=== PATIENT | male | born 1960 | race African-American/Black ===

== ENCOUNTER → 2016-09-03 | Outpatient (REF) | payer BC | LOC: M LABDRAW1 10:50 | PROVIDERS: ATTEND Urology | DX: R97.20 Elevated prostate specific antigen [PSA] (principal) ==

== ENCOUNTER → 2016-09-03 | Outpatient (REF) | payer BC ==
[2016-09-03 11:24] LABS: ALBUMIN 3.6 GM/DL (3.2-5.2); ALBUMIN/GLOBULIN RATIO 1.29 (1.00-1.93); ALKALINE PHOSPHATASE 36 U/L (45-117); ALT/SGPT 25 U/L (12-78); ANION GAP 5 MEQ/L (8-16); AST/SGOT 17 U/L (15-37); BILIRUBIN,TOTAL 0.7 MG/DL (0.2-1.0); BLOOD UREA NITROGEN 11 MG/DL (7-18); CALCIUM LEVEL 8.8 MG/DL (8.5-10.1); CARBON DIOXIDE LEVEL 27 MEQ/L (21-32); CHLORIDE LEVEL 108 MEQ/L (98-107); CHOLESTEROL LEVEL 209 MG/DL (<200); GLOMERULAR FILTRATION RATE > 60.0 (>56); GLUCOSE, FASTING 100 MG/DL (70-105); POTASSIUM SERUM 4.2 MEQ/L (3.5-5.1); SODIUM LEVEL 140 MEQ/L (136-145); TOTAL PROTEIN 6.4 GM/DL (6.4-8.2); TRIGLYCERIDES LEVEL 72 MG/DL (<150)
== END ==
LOC: M LABDRAW1 10:48
PROVIDERS: ATTEND Physician Assistant
DX: E78.5 Hyperlipidemia, unspecified (principal)

== ENCOUNTER → 2016-09-25 | Outpatient (CLI) | payer BC ==
[~2016-09-25] VITALS: Ht 170.2 cm; Wt 65.8 kg
[~2016-09-25] MED LIST: ALBU17IN INH; BREO1INH3 INH; NS 1,000 ML IV SCH; PROPOFOL 200 MG/20 ML VIAL As Ordered ONE; TIOT18INH INH
--- NOTE | 2016-09-25 09:35 | ROOR ---
Patient Name: Louis Ralph Procedure Date: 09/25/2016 7:30 AM Date of : 1960 Age: 56 Room: [facility] Gender: Male Note Status: Finalized Procedure: Colonoscopy to Cecum + Cold Snare Polypectomy Indications: Screening for colorectal malignant neoplasm Providers: Baljeet Padilla MD Referring MD: DK Agarwal Requesting Provider: Medicines: Monitored Anesthesia Care Complications: No immediate complications. Procedure: Pre-Anesthesia Assessment: - The heart rate, respiratory rate, oxygen saturations, blood pressure, adequacy of pulmonary ventilation, and response to care were monitored throughout the procedure. The Colonoscope was introduced through the anus and advanced to the cecum, identified by appendiceal orifice and ileocecal valve. The colonoscopy was performed without difficulty. The patient tolerated the procedure well. The quality of the bowel preparation was excellent. Findings: The perianal and digital rectal examinations were normal. Non-bleeding internal hemorrhoids were found during retroflexion. The hemorrhoids were small and Grade I (internal hemorrhoids that do not prolapse). A small polyp was found in the mid ascending colon. The polyp was sessile. The polyp was removed with a cold snare. Resection and retrieval were complete. A small polyp was found in the proximal transverse colon. The polyp was sessile. The exam was otherwise without abnormality on direct and retroflexion views. Impression: - Non-bleeding internal hemorrhoids. - One small polyp in the mid ascending colon, removed with a cold snare. Resected and retrieved. - One small polyp in the proximal transverse colon. - The examination was otherwise normal on direct and retroflexion views. - The exam was otherwise normal to the cecum. Recommendation: - Patient has a contact number available for emergencies. The signs and symptoms of potential delayed complications were discussed with the patient. Return to normal activities tomorrow. Written discharge instructions were provided to the patient. - High fiber diet. - Discharge patient to home. - Continue present medications. - Await pathology results. - Telephone GI clinic for pathology results in 1 week. - Repeat colonoscopy in 5 years for surveillance based on pathology results. - Return to referring physician. - The findings and recommendations were discussed with the patient's family. Baljeet Padilla MD Baljeet Padilla MD 09/25/2016 9:34:49 AM This report has been signed electronically. Number of Addenda: 0 Note Initiated On: 09/25/2016 7:30 AM Estimated Blood Loss: Estimated blood loss: none.
[2016-09-25 10:05] VITALS: BP 107/75
== END | disposition home or self-care (01) ==
LOC: M OPP 07:58
PROVIDERS: ATTEND Internal Medicine Gastroenterology
DX: Z12.11 Encounter for screening for malignant neoplasm of colon (principal); D12.2 Benign neoplasm of ascending colon; D12.3 Benign neoplasm of transverse colon; K64.0 First degree hemorrhoids; J44.9 Chronic obstructive pulmonary disease, unspecified; Z95.0 Presence of cardiac pacemaker; Z79.899 Other long term (current) drug therapy; F17.210 Nicotine dependence, cigarettes, uncomplicated

== ENCOUNTER → 2016-11-13 | Outpatient (CLI) | payer BC ==
[~2016-11-13] MED LIST changes: -NS 1,000 ML IV SCH; -PROPOFOL 200 MG/20 ML VIAL As Ordered ONE
--- NOTE | 2016-11-13 23:33 | REP ---
Clinical: Follow up consolidation. Comparison: 11/02 12/[address], 05/15/2015. Findings: Advanced COPD and emphysematous changes are again appreciated with large bulla noted in the right lower lobe measuring roughly 10 cm maximal diameter. Area of consolidation along the posteromedial right lower lobe is again identified and remains relatively similar to prior examinations suggesting a focus of chronic rounded atelectasis. No new acute consolidation, obvious nodule or mass lesion is appreciated. Few calcified and noncalcified lymph nodes in the mediastinum and right hilum appears stable measuring up to approximately 8 mm short axis diameter. No effusion. No pneumothorax. Thoracic aorta and heart/pericardium are normal. Impression: 1. Advanced COPD and emphysematous changes with scattered scarring, bronchiectasis, and bullae similar to prior examinations. 2. Small to moderate area of consolidation along the posteromedial right lower lobe similar to prior examinations and likely representing area of chronic rounded atelectasis. Few mediastinal and right hilar lymph nodes including partially calcified lymph nodes remain stable. Signed by Jamarcus Salas MD 11/13/2016 11:24 P
== END ==
LOC: M RAD 17:25
PROVIDERS: ATTEND Internal Medicine Pulmonary Disease
DX: R91.8 Other nonspecific abnormal finding of lung field (principal)

== ENCOUNTER → 2017-03-03 | Outpatient (REF) | payer BC ==
[2017-03-03 10:11] LABS: BASO # 0.1 K/mm3 (0.0-0.2); BASO % 0.8 % (0.0-1.0); EOS # 0.2 K/mm3 (0.0-0.50); EOS % 1.8 % (0.0-3.0); LARGE UNSTAINED CELL # 0.2 K/mm3 (0.0-0.4); LARGE UNSTAINED CELL % 1.7 % (0.0-4.0); LYMPH # 1.7 K/mm3 (1.5-4.5); LYMPH % 16.8 % (24.0-44.0); MEAN CORPUSCULAR HEMOGLOBIN 30.2 pg (27.0-33.0); MEAN CORPUSCULAR HGB CONC 31.9 g/dl (32.0-36.5); MEAN CORPUSCULAR VOLUME 94.5 fl (80.0-96.0); MONO # 0.6 K/mm3 (0.0-0.8); MONO % 6.3 % (0.0-5.0); NEUTROPHILS # 6.6 K/mm3 (1.8-7.7); NEUTROPHILS % 72.6 % (36.0-66.0); PLATELET COUNT, AUTOMATED 335 k/mm3 (150-450); RED CELL DISTRIBUTION WIDTH 13.1 % (11.5-14.5); WHITE BLOOD COUNT 9.1 K/mm3 (4.0-10.0)
[2017-03-03 10:17] LABS: ALBUMIN 3.7 GM/DL (3.2-5.2); ALBUMIN/GLOBULIN RATIO 1.09 (1.00-1.93); ALKALINE PHOSPHATASE 47 U/L (45-117); ALT/SGPT 29 U/L (12-78); ANION GAP 7 MEQ/L (8-16); AST/SGOT 20 U/L (15-37); BLOOD UREA NITROGEN 9 MG/DL (7-18); CALCIUM LEVEL 9.8 MG/DL (8.5-10.1); CARBON DIOXIDE LEVEL 29 MEQ/L (21-32); CHLORIDE LEVEL 107 MEQ/L (98-107); CHOLESTEROL LEVEL 205 MG/DL (<200); CREATININE FOR GFR 0.77 MG/DL (0.70-1.30); GLOMERULAR FILTRATION RATE > 60.0 (>56); GLUCOSE, FASTING 94 MG/DL (70-105); SODIUM LEVEL 143 MEQ/L (136-145); TOTAL PROTEIN 7.1 GM/DL (6.4-8.2); TRIGLYCERIDES LEVEL 52 MG/DL (<150)
[2017-03-03 10:24] LABS: POTASSIUM SERUM 5.8 MEQ/L (3.5-5.1)
[2017-03-03 10:45] LABS: ERYTHROCYTE SEDIMENTATION RATE 3 mm/hr (0-20)
== END ==
LOC: M LABDRAW1 08:04
PROVIDERS: ATTEND Physician Assistant
DX: R63.4 Abnormal weight loss (principal); E78.5 Hyperlipidemia, unspecified; R97.20 Elevated prostate specific antigen [PSA]

== ENCOUNTER → 2017-03-24 | Outpatient (CLI) | payer BC ==
[~2017-03-24] MED LIST changes: +E-Z-GAS II EFFERVESCENT PACKET (SODIUM BICARB./CITRIC ACID/SIMETHICONE) As Ordered ONE; +E-Z-HD 98% w/w 340GM SUSP BTL As Ordered ONE; +E-Z-PAQUE 96% w/w SUSP 176GM BTL As Ordered ONE
--- NOTE | 2017-03-24 15:45 | REP ---
UPPER GI WITH SMALL BOWEL FOLLOW THROUGH: The procedure was performed by RAYMUNDO Parks under the direct supervision of Dr. Abebe. All imaging was reviewed with Dr. Abebe prior to dictation. The patient was able to ingest liquid barium and air in a quantity sufficient to produce a double contrast examination. The oral and pharyngeal stages of deglutition appeared unremarkable. Esophageal transport was prompt and efficient. There was no evidence of esophagitis, stricture, mucosal ring, or hiatal hernia. Gastroesophageal reflux was observed to the level of the xavier. The stomach can were normally outlined. There was no evidence of duodenitis, peptic ulcer disease, or neoplasm. Posterior to the gastric cardia there is a gastric diverticula noted on this exam. The visualized portion of the proximal small bowel was normal in course and caliber. Additional liquid barium was given at the end of the examination in order to perform a small bowel follow through. During fluoroscopy gentle palpation of the small bowel loops showed them to be freely movable and pliable without evidence of a fixed or angulated loop. The small bowel mucosal pattern was normal in course and caliber. There was no evidence to suggest a partial small bowel obstruction. Spot filming of the terminal ileum was not able to be obtained due to overlapping folds of small bowel being superimposed over the field where the terminal ileum was located. IMPRESSION: Reflux to the level of the xavier was noted. Not able to visualize the terminal ileum due to small bowel loops being superimposed over terminal ileum. Incidental finding of a small gastric diverticula posterior to the gastric cardia. Fluoroscopy time of 3 minutes and 9 seconds were utilized for this procedure. Reviewed by RAYMUNDO Bueno 03/24/2017 03:52 PEdited and Signed by Vitor Abebe MD 03/24/2017 04:42 P
== END ==
LOC: M RAD 09:38
PROVIDERS: ATTEND Physician Assistant
DX: R63.4 Abnormal weight loss (principal)

== ENCOUNTER → 2017-07-08 | Outpatient (REF) | payer BC ==
[2017-07-10 10:37] LABS: ALBUMIN 4.19 GM/DL (3.29-5.55); ALBUMIN % 59.8 % (55.8-66.1); ALPHA-1-GLOBULIN % 3.6 % (2.9-4.9); ALPHA-1-GLOBULINS 0.25 GM/DL (0.17-0.41); ALPHA-2-GLOBULINS 0.73 GM/DL (0.42-0.99); ALPHA-2-GLOBULINS % 10.4 % (7.1-11.8); BETA-1-GLOBULINS 0.46 GM/DL (0.28-0.60); BETA-1-GLOBULINS % 6.6 % (4.7-7.2); BETA-2-GLOBULINS 0.39 GM/DL (0.19-0.55); BETA-2-GLOBULINS % 5.5 % (3.2-6.5); GAMMA GLOBULIN % 14.1 % (11.1-18.8); GAMMA GLOBULINS 0.99 GM/DL (0.65-1.58)
== END ==
LOC: M LABDRAW1 11:42
DX: D72.821 Monocytosis (symptomatic) (principal)
CPT/HCPCS: 84165

== ENCOUNTER → 2018-04-28 | Outpatient (REF) | payer BC ==
[2018-04-28 12:43] LABS: LACTIC ACID SEPSIS PROTOCOL 1.5 MMOL/L (0.4-2.0)
[2018-04-28 13:05] LABS: INR 0.96; PROTHROMBIN TIME 12.8 SECONDS (12.1-14.4)
[2018-04-28 13:25] LABS: ALBUMIN 3.5 GM/DL (3.2-5.2); ALBUMIN/GLOBULIN RATIO 1.09 (1.00-1.93); ALKALINE PHOSPHATASE 43 U/L (45-117); ALT/SGPT 44 U/L (12-78); AMYLASE 63 U/L (25-115); ANION GAP 9 MEQ/L (8-16); AST/SGOT 33 U/L (7-37); BLOOD UREA NITROGEN 7 MG/DL (7-18); CALCIUM LEVEL 9.3 MG/DL (8.5-10.1); CARBON DIOXIDE LEVEL 26 MEQ/L (21-32); CHLORIDE LEVEL 102 MEQ/L (98-107); CREATININE FOR GFR 0.61 MG/DL (0.70-1.30); GLOMERULAR FILTRATION RATE > 60.0 (>56); GLUCOSE, FASTING 78 MG/DL (70-100); LIPASE 55 U/L (73-393); POTASSIUM SERUM 4.5 MEQ/L (3.5-5.1); PREALBUMIN 22.5 MG/DL (20.0-40.0); PSA SCREENING 0.9 NG/ML (< 4.0); SODIUM LEVEL 137 MEQ/L (136-145); TOTAL PROTEIN 6.7 GM/DL (6.4-8.2)
[2018-04-29 11:02] LABS: HIV 1&2 SCREEN CENTAUR NEGATIVE (NEGATIVE)
== END ==
LOC: M SFHCPLAZ 11:05
DX: R63.4 Abnormal weight loss (principal); Z12.5 Encounter for screening for malignant neoplasm of prostate

== ENCOUNTER → 2018-05-01 | Outpatient (CLI) | payer BC | LOC: M RAD 06:43 | DX: K76.89 Other specified diseases of liver (principal); R63.4 Abnormal weight loss | CPT/HCPCS: 76700 ==

== ENCOUNTER → 2018-07-02 | Outpatient (CLI) | payer BC ==
[~2018-07-02] MED LIST changes: -E-Z-GAS II EFFERVESCENT PACKET (SODIUM BICARB./CITRIC ACID/SIMETHICONE) As Ordered ONE; -E-Z-HD 98% w/w 340GM SUSP BTL As Ordered ONE; -E-Z-PAQUE 96% w/w SUSP 176GM BTL As Ordered ONE
--- NOTE | 2018-07-03 06:14 | REP ---
Clinical: Follow up abnormal pulmonary findings. Comparison: 11/13/2016. Technique: Axial noncontrast images from the thoracic inlet to the upper abdomen with coronal and sagittal re-formations. Findings: Advanced COPD and emphysematous changes including scattered fibrosis/scarring, moderate to large bullae primarily involving the apices (right greater than left) and right lower lobe, as well as suspected chronic rounded atelectasis along the medial right lower lobe. Current examination demonstrates a new focal area of nodularity with spiculated margins measuring approximately 10 mm within the posterior right upper lobe (image 34). No effusion. No pneumothorax. Mediastinum including thoracic aorta, pulmonary vasculature and heart/pericardium are within normal limits / stable. Surrounding musculoskeletal structures demonstrate age-related degenerative changes. Impression: 1. New 10 mm opacity with spiculated margins in the posterior right upper lobe. Pulmonology consultation is recommended. Further imaging evaluation including PET-CT as well as short-term follow-up contrast-enhanced examination may be warranted. 2. Chronic advanced COPD and emphysematous changes along with focus of chronic atelectasis along the medial right lower lobe. Electronically Signed by Jamarcus Salas MD 07/03/2018 06:06 A
== END ==
LOC: M RAD 17:07
PROVIDERS: ATTEND Internal Medicine Pulmonary Disease
DX: R91.8 Other nonspecific abnormal finding of lung field (principal); J43.9 Emphysema, unspecified; J84.10 Pulmonary fibrosis, unspecified; J98.11 Atelectasis

== ENCOUNTER → 2018-07-21 | Outpatient (CLI) | payer BC ==
--- NOTE | 2018-07-22 15:12 | REP ---
PET/CT: History: Solitary pulmonary nodule. Comparisons: Comparison CT chest July 02, 2018 showed a new 10 mm spiculated nodule in the right upper lobe posteriorly. TECHNIQUE: 76 minutes following the intravenous injection of a 9.9 mCi dose of F-18 FDG, three-dimensional PET scintigraphy is acquired from the skull base to the proximal thighs. Triplanar noncontrast CT scanning is acquired through the same anatomic range for attenuation correction, and image registration with scan parameters optimized to minimize radiation exposure to the patient. PET scintigraphy and CT datasets were fused and displayed on a workstation with multiplanar and projection display capability. PET/CT Findings: The new 10 mm spiculated nodule in the right upper lobe shows borderline hypermetabolic uptake, maximum standard uptake value 2.0. There is discernible although not quite hypermetabolic uptake in an even smaller nodule higher in the right upper lobe. Maximum standard uptake value here is 1.5. This nodule measures 5 mm in diameter and is also spiculated. It must be considered potentially suspicious as well. Lastly, there is a third right upper lobe hypermetabolic nodule anteriorly. This displays maximum standard uptake value of 2.82. It measures 8 mm in diameter. There is a mildly hypermetabolic precarinal lymph node with maximum standard uptake value 2.9. This lymph node measures 10 mm in short axis dimension. No other abnormal hypermetabolic uptake is seen in the chest. The chronic atelectasis in the right lower lobe posteromedially does not show hypermetabolic uptake. Head and neck soft tissues are unremarkable. In the abdomen and pelvis there is no abnormal hypermetabolic uptake. Impression: There are three small subcentimeter separate spiculated right upper lobe nodules. The all show borderline or mild hypermetabolic uptake. They each must be considered potentially suspicious. There is a suspicious small lymph node in the precarinal region of the mediastinum as well. Electronically Signed by Vitor Abebe MD 07/22/2018 07:14 P
== END ==
LOC: M PLARAD 14:41
PROVIDERS: ATTEND Internal Medicine Pulmonary Disease
DX: R91.1 Solitary pulmonary nodule (principal)
CPT/HCPCS: 78815; A9552

== ENCOUNTER → 2018-09-09 | Outpatient (CLI) | payer BC ==
[2018-09-09 13:38] LABS: HEMATOCRIT 41.4 % (42.0-52.0); HEMOGLOBIN 14.3 g/dl (13.5-17.5); MEAN CORPUSCULAR HEMOGLOBIN 29.7 pg (27.0-33.0); MEAN CORPUSCULAR HGB CONC 34.5 g/dl (32.0-36.5); MEAN CORPUSCULAR VOLUME 86.1 fl (80.0-96.0); PLATELET COUNT, AUTOMATED 260 10^3/uL (150-450); RED BLOOD COUNT 4.81 10^6/uL (4.30-6.10); WHITE BLOOD COUNT 6.9 10^3/uL (4.0-10.0)
[2018-09-09 13:50] LABS: INR 1.01; PROTHROMBIN TIME 13.4 SECONDS (12.1-14.4)
[2018-09-09 13:52] LABS: ABG BASE EXCESS 2.9 (-2.0-2.0); ABG HCO3 27.2 MEQ/L (22.0-26.0); ABG PARTIAL PRESSURE CO2 40.5 mmHg (35.0-45.0); ABG PARTIAL PRESSURE O2 54.7 mmHg (75.0-100.0); ABG STANDARD HCO3 26.9 MEQ/L (22.0-26.0); ABG TOTAL CO2 28.4 MEQ/L (22.0-29.0); ABG pH (ARTERIAL) 7.445 UNITS (7.350-7.450)
[2018-09-09 14:03] LABS: BLOOD UREA NITROGEN 11 MG/DL (7-18); CALCIUM LEVEL 8.9 MG/DL (8.5-10.1); CARBON DIOXIDE LEVEL 27 MEQ/L (21-32); CHLORIDE LEVEL 105 MEQ/L (98-107); CREATININE FOR GFR 0.68 MG/DL (0.70-1.30); GLOMERULAR FILTRATION RATE > 60.0 (>56); GLUCOSE, FASTING 84 MG/DL (70-100); POTASSIUM SERUM 4.1 MEQ/L (3.5-5.1); SODIUM LEVEL 139 MEQ/L (136-145)
--- NOTE | 2018-09-09 14:27 | REP ---
Clinical: Lung mass. Technique: PA and lateral. Comparison: 06/20/2018. Findings: Advanced COPD and emphysematous changes are again noted with the large bullae involving the right lower lung zone. No obvious focal mass lesion is identified by radiographic evaluation. The mediastinum and cardiac silhouette are within normal limits. No effusion. No pneumothorax. Skeletal structures are intact. Impression: Advanced COPD and emphysematous changes similar to prior examination. Electronically Signed by Jamarcus Salas MD 09/09/2018 02:18 P
== END ==
LOC: M ADMPAT 12:38
PROVIDERS: ATTEND Thoracic Surgery (Cardiothoracic Vascular Surgery)
DX: J44.9 Chronic obstructive pulmonary disease, unspecified (principal); R91.1 Solitary pulmonary nodule

== ENCOUNTER 2018-09-16 05:52 | Day surgery (SDC) | payer BC ==
[2018-09-09 13:09] VITALS: BP 119/68
--- NOTE | 2018-09-09 21:33 | ECGEPIP ---
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
[~2018-09-16] VITALS: Ht 165.1 cm; Wt 57.8 kg
[~2018-09-16 05:52] MED LIST changes: +MUPIROCIN 2% OINT 22 GM TUBE TOP ONE
[2018-09-16 06:34] LABS: INR 0.92; PROTHROMBIN TIME 12.5 SECONDS (12.1-14.4)
[2018-09-16 06:35] LABS: PARTIAL THROMBOPLASTIN TIME 26.8 SECONDS (25.4-37.6)
[2018-09-16] MEDS ORDERED: MUPIROCIN 2% OINT 22 GM TUBE TOP ONE (06:45)
[2018-09-16] MEDS ORDERED: LR 1,000 ML IV ONE (07:00)
[2018-09-16] MEDS ORDERED: LIDOCAINE 1% SDV INJ 30 ML VIAL As Ordered ONE (07:13)
[2018-09-16] MEDS ORDERED: EPINEPHrine 1MG/10ML SYRINGE 1.5IN As Ordered ONE (07:13)
[2018-09-16] MEDS ORDERED: THROMBIN SOLN 20,000 UNITS KIT As Ordered ONE (07:13)
[2018-09-16] MEDS ORDERED: CETACAINE SPRAY 5GM As Ordered ONE (07:13)
[2018-09-16] MEDS ORDERED: LIDOCAINE VISCOUS 2% SOLN 15ML UDC As Ordered ONE (07:14)
[2018-09-16] MEDS ORDERED: LIDOCAINE 4% TOPICAL SOLN 50 ML BTL As Ordered ONE (07:15)
[2018-09-16] MEDS ORDERED: fentaNYL 250 MCG/5 ML INJECTION (J3010) As Ordered ONE (07:47)
[2018-09-16] MEDS ORDERED: LIDOCAINE 2% INJ 100 MG/5 ML SDV (FOR ANES.) As Ordered ONE (07:47)
[2018-09-16] MEDS ORDERED: MIDAZOLAM INJ 2 MG/2 ML VIAL (J2250) As Ordered ONE (07:47)
[2018-09-16] MEDS ORDERED: ROCURONIUM BROMIDE 50 MG/5 ML VIAL As Ordered ONE (07:47)
[2018-09-16] MEDS ORDERED: PROPOFOL 200 MG/20 ML VIAL As Ordered ONE (07:47)
[2018-09-16] MEDS ORDERED: dexameTHASONE 4 MG/ML 1ML VIAL (J1100) As Ordered ONE (07:47)
[2018-09-16] MEDS ORDERED: PHENYLephrine HCL 500 MCG/5 ML (100MCG/ML) SYRINGE (J2370) As Ordered ONE ×2 (07:55→08:28)
[2018-09-16] MEDS ORDERED: ONDANSETRON 4MG/2ML VIAL (J2405) As Ordered ONE (08:08)
[2018-09-16] MEDS ORDERED: SUGAMMADEX SODIUM 500 MG/5 ML VIAL (BRIDION) As Ordered ONE (08:39)
--- NOTE | 2018-09-16 09:31 | RO ---
DATE OF PROCEDURE: 09/16/2018 PREOPERATIVE DIAGNOSIS: Abnormal chest CT, adenopathy with pulmonary nodules. POSTOPERATIVE DIAGNOSIS: Abnormal chest CT, adenopathy with pulmonary nodules. FINDINGS: Pitted smokers airway. PROCEDURE: Bronchoscopy with endobronchial ultrasound and electromagnetic navigation. PROCEDURALIST: Dr. Saran Jane. CONTAINER MAKER: None. ANESTHESIA: General. ESTIMATED BLOOD LOSS: 2 to 5 mL. OBSERVED COMPLICATIONS: None. DESCRIPTION OF PROCEDURE: After informed consent was reviewed with the patient in the preoperative area, the patient was brought back to a pre mapped room in OR #6. General anesthesia was administered and intubated with an 8.5 endotracheal tube and the case was handed over to me. Time-out was performed with two patient identifiers identifying correct site, correct procedure. The 1T190 bronchoscope was then inserted into the airway. Cetacaine spray was used for lubrication and anesthetization of the airway. The trachea was midline. There was some pitting of the trachea and main airways. Shabana was fairly sharp. Right and left mainstem bronchus was normal without significant abnormalities. RB 1 through 10 was inspected with some banding and pitting but no endobronchial lesions. There is minimal amounts of mucus in the right lower lobe. On the left side, LB 1 through 10 was also examined with no endobronchial lesions, again banding and pitting. After this was performed, the 1T190 bronchoscope was removed. Endobronchial ultrasound was inserted. I then performed fine-needle aspiration of the precarinal node that is in the 4R position. The node was very flat. Pictures were taken. On-site cytology suggested only inflammation. A sample was obtained for cell block. After adequate sampling of the lymph node, the endobronchial ultrasound was removed. I then reinserted the 1T190 bronchoscope and performed automatic registration with electromagnetic navigation bronchoscopy. Automatic registration was performed and confirmed. I had mapped a total of three lesions. Target one was the most anterior nodule, the largest nodule, the one that had been initially of most concern. This was labeled as target #1. This was easily obtained. With transbronchial forceps, biopsies were obtained, along with fine-needle aspiration through a GenCut. The right upper lobe transbronchial brushes were performed. I used radial ultrasound through the navigational sheath to ensure surrounding tissue. I then navigated to target #2, which is the most apical lesion on image [address] scan, measuring approximately 6 mm again in the right upper lobe. I used separate forceps, biopsies, separate bronchial brushing, these were both obtained. I then performed a BAL leaving the area. After all samples were obtained, hemostasis was assured and bronchoscope was removed. There were no observed complications of the patient postprocedure.
[2018-09-16] MEDS ORDERED: fentaNYL 100 MCG/2 ML INJECTION (J3010) IV PRN (09:45)
[2018-09-16] MEDS ORDERED: ONDANSETRON 4MG/2ML VIAL (J2405) IV PRN (09:45)
[2018-09-16] MEDS ORDERED: LR 1,000 ML IV SCH (09:45)
--- NOTE | 2018-09-16 09:46 | REP ---
Chest one-view HISTORY: Postop Comparison: 09/09/2018 An increase in interstitial markings is present in the lungs consistent with chronic interstitial fibrosis. Bullae are present in the right lower lobe. The heart is normal in size. The pulmonary vasculature is normal in appearance. Impression: Chronic interstitial fibrosis. Electronically Signed by Afshin Chu MD 09/16/2018 09:38 A
--- NOTE | 2018-09-16 10:03 | REP ---
Chest x-ray: Two views. History: Lung mass. Mediastinal lymphadenopathy. Findings: A sequence of two last image hold fluoroscopically obtained spot radiographs document bronchoscopic catheter positions. 3 minutes and 5 seconds of fluoroscopy time is reported. Electronically Signed by Vitor Abebe MD 09/16/2018 11:09 A
[2018-09-16 10:15] VITALS: BP 108/61
== END 2018-09-16 10:32 | disposition home or self-care (01) ==
LOC: M SDC 05:52
PROVIDERS: ATTEND Thoracic Surgery (Cardiothoracic Vascular Surgery)
DX: R91.8 Other nonspecific abnormal finding of lung field (principal); R91.1 Solitary pulmonary nodule; R59.0 Localized enlarged lymph nodes; J43.9 Emphysema, unspecified; J44.9 Chronic obstructive pulmonary disease, unspecified; R09.02 Hypoxemia; R06.83 Snoring
CPT/HCPCS: 31623; 31624; 31627; 31628; 31652; 36415; 71045; 76000; 85610; 85730; 86850; 86900; 86901; 87070; 87102; 87116; 87205; 87206; 88104; 88173; 88305; 88313; 93005; J1100; J2250; J2370; J2405; J3010

== ENCOUNTER → 2018-10-27 | Outpatient (CLI) | payer BC ==
[~2018-10-27] MED LIST changes: -MUPIROCIN 2% OINT 22 GM TUBE TOP ONE
--- NOTE | 2018-11-06 16:38 | REP ---
CT CHEST WITHOUT IV CONTRAST: CT chest performed without IV contrast. Sagittal and coronal reconstruction images are performed. COMPARISON: Comparison made with prior studies 09/04/2018, 07/02/2018 and 11/13/2016. In the right upper lobe on image #27 there is a new 6 mm irregular nodular opacity. More inferiorly, a previously noted spiculated nodular opacity has decreased in size as seen on image #34, now measuring about 6 mm, previously about 1 cm. Another nodular opacity in the right upper lobe posterolaterally has decreased in size now measuring 7 x 8 mm, previously 9 mm in diameter. A nodular opacity in the right upper lobe anteriorly has changed appearance becoming more dense anteriorly and less dense posteriorly, although there is increased ill-defined opacity posteriorly with an area of ill-defined consolidation and air bronchograms in that region encompassing an area of approximately 3 cm in diameter. There is an area of consolidation in the right lower lobe inferomedially which has mildly increased which may represent an increased area of fibroatelectasis. New peripheral consolidative opacity is seen in the anterior left upper lobe with irregular margins measuring approximately 2.9 x 1.4 cm. There is mild adjacent pleural thickening at this location. No other new findings are seen on the left. Scattered fibrotic changes are seen particularly on the right with emphysematous and bullous changes seen throughout the right lung. A large right lower lobe bulla is stable. Heart is normal in size. There is no pleural or pericardial effusion. Mildly enlarged mediastinal lymph nodes are stable. Calcified lymph nodes are seen in the subcarinal region. A few small calcified right hilar lymph nodes are seen. IMPRESSION: There is decrease in size of previously noted spiculated nodules in the right upper lobe with new consolidative parenchymal opacities seen more inferiorly in the anterior aspect of the right upper lobe, with another new consolidative opacity peripherally in the anterior left upper lobe. The findings are suggestive of inflammation/infection. Mild stable mediastinal adenopathy. Please note that this examination was submitted to me for interpretation 11/06/2018 for reasons unknown to me. Electronically Signed by Mac Al MD 11/10/2018 10:06 A
== END ==
LOC: M RAD 17:28
PROVIDERS: ATTEND Internal Medicine Pulmonary Disease
DX: R91.8 Other nonspecific abnormal finding of lung field (principal)

== ENCOUNTER → 2018-11-11 | Outpatient (REF) | payer BC | LOC: M LAB REF 09:58 | PROVIDERS: ATTEND Internal Medicine Pulmonary Disease | DX: R91.8 Other nonspecific abnormal finding of lung field (principal) ==

== ENCOUNTER → 2018-11-18 | Outpatient (CLI) | payer BC ==
--- NOTE | 2018-11-19 00:52 | REP ---
Clinical: Abnormal lung findings. Comparison: 09/16/2018. Technique: PA and lateral. Findings: Advanced COPD and emphysematous changes are appreciated with large bulla involving the right mid to lower lung zone. A new area of ill-defined opacity with spiculated margins is appreciated in the right mid lung zone midclavicular line measuring greater than 4 cm maximal diameter. No further opacity. No definite effusion. No pneumothorax. Cardiac silhouette is normal. Impression: 1. Advanced COPD and emphysematous changes with large right mid to lower lung bulla. 2. New suspicious 4 cm ovoid area of opacity in the right mid lung zone with spiculated margins. Further evaluation is necessary as lesion appears malignant unless proven otherwise. Electronically Signed by Jamarcus Salas MD 11/19/2018 12:44 A
== END ==
LOC: M RAD 15:41
PROVIDERS: ATTEND Internal Medicine Pulmonary Disease
DX: J44.9 Chronic obstructive pulmonary disease, unspecified (principal); R91.8 Other nonspecific abnormal finding of lung field

== ENCOUNTER → 2018-12-31 | Outpatient (CLI) | payer BC ==
--- NOTE | 2018-12-31 19:20 | REP ---
CT chest without contrast: History: Abnormal lung field finding. Multiple comparison chest CTs are reviewed. The most recent of these is from October 27, 2018. The most remote comparison chest CT study is from July 18, 2014. CT findings: There are multiple stable joi carinal and AP window region lymph nodes in the mediastinum, unchanged from August 2018 and only very slightly larger than on July 2014 prior studies. There are calcified granulomatous lymph node residuals in the right hilar and subcarinal lymph nodes as before. No new mediastinal or hilar adenopathy is seen. No pleural or pericardial effusion is seen. There are advanced COPD changes with bullous emphysema in the upper lobes bilaterally, right more so than left. There is a large air cyst in the right lower lobe distribution. This is essentially unchanged from recent prior study. There is improved aeration, less atelectasis in the right lower lobe posteriorly and medially. There is some rotational deformity of the lung markings in this region however. The most recently noted nodular density in the left upper lobe is much improved as well with some linear fibrosis in its wake. There is a large spiculated appearing band-like opacity in the parenchyma of the right upper lobe spanning anterior to posteriorly at the level of the upper portion of the lower lobe bullous. This parenchymal opacity contains air bronchograms. It is new compared with the October 27, 2018 study and is consistent with a band of inflammatory reaction. This obscures the previously noted right upper lobe nodular densities with the exception of the most superior of the nodules. This nodular density today measures 10 mm in greatest diameter. It has increased since the October 27, 2018 study when it measured 6 mm. Impression: Waxing and waning areas of inflammatory appearing band-like atelectasis, fibrosis and consolidation. Improvement noted right lower lobe and left upper lobe. New large area of bandlike opacity in the right upper lobe today. Advanced COPD changes. 10 mm nodular opacity visible today in the right apex appears to have increased from the most recent prior study. Electronically Signed by Vitor Abebe MD 12/31/2018 07:29 P
== END ==
LOC: M RAD 16:30
PROVIDERS: ATTEND Internal Medicine Pulmonary Disease
DX: R91.8 Other nonspecific abnormal finding of lung field (principal)

== ENCOUNTER → 2019-02-12 | Outpatient (CLI) | payer BC ==
--- NOTE | 2019-02-12 18:16 | REP ---
Clinical: Follow up abnormal lung findings. Technique: PA and lateral. Comparison: 11/18/2018. Findings: Advanced COPD and emphysematous changes are again noted. There is an area of ill-defined fibrosis and subtle surrounding opacities in the right upper lobe which may be slightly decreased from prior examination although still remains significant and requires further investigation/follow-up. A small right pleural effusion cannot be excluded as well. Mediastinum and cardiac silhouette are stable. No cardiomegaly. No pneumothorax. Impression: 1. Continued ill-defined area of suspected fibroatelectatic change and subtle surrounding opacity in the right upper lobe as well as possible small right pleural effusion. Findings require continued follow-up and correlation. Electronically Signed by Jamarcus Salas MD 02/12/2019 06:07 P
== END ==
LOC: M RAD 17:42
PROVIDERS: ATTEND Internal Medicine Pulmonary Disease
DX: J44.9 Chronic obstructive pulmonary disease, unspecified (principal)

== ENCOUNTER → 2019-03-29 | Outpatient (CLI) | payer BC ==
--- NOTE | 2019-03-30 17:35 | REP ---
Clinical: Follow up abnormal lung findings. Technique: Axial noncontrast images from the thoracic inlet to the upper abdomen with coronal and sagittal re-formations. Comparison: 12/31/2018, 07/02/2018, 11/13/2016. Findings: Advanced COPD/emphysematous changes with scattered bullae, scarring, and bronchiectasis are again appreciated. Previously noted areas of nodularity, consolidation, and atelectasis primarily involving the right hemithorax appear relatively decreased/improved. A new area of irregularity and increased soft tissue density in the subpleural anterior left upper lobe (images 42-46) is noted. No effusion. No pneumothorax. Mildly prominent mediastinal lymph nodes measuring up to approximately 15 mm along with few partially calcified mediastinal/right hilar lymph nodes appear relatively stable. Thoracic aorta, heart/pericardium, and pulmonary vasculature appear relatively normal. Surrounding musculoskeletal structures are intact. Impression: 1. Advanced chronic COPD/emphysematous changes as noted above including areas of scarring primarily involving the right hemithorax. Previously noted areas of irregular opacity and nodularity have improved. 2. New area of irregular opacity in the subpleural anterior left upper lobe warrants 6-9 month follow-up. Electronically Signed by Jamarcus Salas MD 03/30/2019 05:26 P
== END ==
LOC: M RAD 17:34
PROVIDERS: ATTEND Internal Medicine Pulmonary Disease
DX: J44.9 Chronic obstructive pulmonary disease, unspecified (principal); R91.8 Other nonspecific abnormal finding of lung field

== ENCOUNTER → 2019-06-14 | Outpatient (REF) | payer BC ==
[2019-06-14 10:40] LABS: IONIZED CALCIUM 4.8 MG/DL (4.5-5.3)
[2019-06-14 11:02] LABS: ALBUMIN 3.6 GM/DL (3.2-5.2); BLOOD UREA NITROGEN 11 MG/DL (7-18); CALCIUM LEVEL 9.4 MG/DL (8.5-10.1); CARBON DIOXIDE LEVEL 30 MEQ/L (21-32); CHLORIDE LEVEL 98 MEQ/L (98-107); CPK CREATINE PHOSPHOKINASE 114 U/L (39-308); CREATININE FOR GFR 0.81 MG/DL (0.70-1.30); GLOMERULAR FILTRATION RATE > 60.0 (>56); GLUCOSE, FASTING 103 MG/DL (70-100); MAGNESIUM LEVEL 2.3 MG/DL (1.8-2.4); NT-PRO BNP 4114 PG/ML (<125); POTASSIUM SERUM 5.9 MEQ/L (3.5-5.1); PREALBUMIN 27.9 MG/DL (20.0-40.0); SODIUM LEVEL 136 MEQ/L (136-145)
[2019-06-15 11:31] LABS: ALT/SGPT 35 U/L (12-78); BILIRUBIN,TOTAL 0.9 MG/DL (0.2-1.0); CHOLESTEROL LEVEL 210 MG/DL (<200); CHOLESTEROL RISK RATIO 1.909 (<5); HDL CHOLESTEROL 110 MG/DL (>40); LDL CHOLESTEROL 88 MG/DL (<100); NON-HDL-C 100 MG/DL; TOTAL PROTEIN 7.3 GM/DL (6.4-8.2); TRIGLYCERIDES LEVEL 62 MG/DL (<150)
[2019-06-15 12:08] LABS: PROLACTIN 8.1 NG/ML (2.1-17.7)
== END ==
LOC: M LABDRAW1 09:52
PROVIDERS: ATTEND Family Medicine
DX: J96.11 Chronic respiratory failure with hypoxia (principal); R63.6 Underweight; M53.82 Other specified dorsopathies, cervical region; E78.5 Hyperlipidemia, unspecified; Z87.898 Personal history of other specified conditions; N64.4 Mastodynia

== ENCOUNTER → 2019-06-21 | Outpatient (CLI) | payer BC ==
--- NOTE | 2019-06-21 14:06 | REP ---
Bilateral digital diagnostic mammography with CAD and bilateral focused sonography: History: Pain and lump under right nipple. No comparison breast imaging. Mammographic findings: A skin marker is affixed to the skin at the site of the palpable lump. There is a gynecomastia pattern with increased density in the retroareolar region bilaterally, right a little more prominent than left. No spiculation or architectural distortion is seen. No worrisome skin changes seen. Sonographic findings: Retroareolar sonography is performed. Hypoechoic breast tissue is seen beneath the nipples bilaterally. The area on the right measures 9.0 x 11.0 x 8.0 mm in that on the left 11.0 x 7.0 x 12.0 mm. Changes are consistent with gynecomastia. No mass or spiculation is seen. Impression: BIRADS 2: BI-RADS/ACR category 2 mammogram. Benign Findings. Gynecomastia pattern noted bilaterally, right mammographically a little more prominent than left. Clinical followup is advised. This mammogram was interpreted with the aid of an FDA-approved computer-aided detection system. The patient letter being requested is male letter M2. The patient states he had a clinical breast exam in May 2019. Electronically Signed by Vitor Abebe MD 06/21/2019 02:56 P
== END ==
LOC: M RAD 09:34
PROVIDERS: ATTEND Family Medicine
DX: N62 Hypertrophy of breast (principal); N64.4 Mastodynia

== ENCOUNTER → 2019-07-21 | Outpatient (REF) | payer BC ==
[2019-07-21 16:24] LABS: BLOOD UREA NITROGEN 12 MG/DL (7-18); CALCIUM LEVEL 8.9 MG/DL (8.5-10.1); CARBON DIOXIDE LEVEL 25 MEQ/L (21-32); CHLORIDE LEVEL 101 MEQ/L (98-107); CREATININE FOR GFR 0.92 MG/DL (0.70-1.30); GLOMERULAR FILTRATION RATE > 60.0 (>56); GLUCOSE, FASTING 170 MG/DL (70-100); POTASSIUM SERUM 4.4 MEQ/L (3.5-5.1); SODIUM LEVEL 134 MEQ/L (136-145)
== END ==
LOC: M LABDRAW1 15:22
PROVIDERS: ATTEND Family Medicine
DX: E87.5 Hyperkalemia (principal)

== ENCOUNTER 2019-08-19 15:57 | Inpatient (IN) | payer BC ==
[~2019-08-19] VITALS: Ht 167.6 cm; Wt 67.5 kg
[2019-08-19 12:26] VITALS: BP 101/74
[2019-08-19] MEDS ORDERED: PRED1TABL PO (16:11)
[2019-08-19 16:41] LABS: VENOUS BASE EXCESS -1.3 (-2.0-2.0); VENOUS HCO3 25.3 MEQ/L (23.0-27.0); VENOUS O2 SATURATION 84.6 % (60.0-80.0); VENOUS PARTIAL PRESSURE CO2 49.8 mmHg (38.0-50.0); VENOUS PARTIAL PRESSURE O2 52.8 mmHg (30.0-50.0); VENOUS PH 7.324 UNITS (7.330-7.430); VENOUS STANDARD HCO3 23.1 MEQ/L; VENOUS TOTAL CO2 26.8 MEQ/L (24.0-28.0)
[2019-08-19 16:49] LABS: BASO # 0.1 10^3/uL (0.0-0.2); BASO % 0.6 % (0.0-1.0); EOS % 0.2 % (0.0-3.0); HEMATOCRIT 42.6 % (42.0-52.0); HEMOGLOBIN 14.2 g/dl (13.5-17.5); LYMPH # 1.2 10^3/uL (1.5-5.0); LYMPH % 13.6 % (24.0-44.0); MEAN CORPUSCULAR HGB CONC 33.3 g/dl (32.0-36.5); MEAN CORPUSCULAR VOLUME 86.9 fl (80.0-96.0); MONO # 0.8 10^3/uL (0.0-0.8); MONO % 9.4 % (0.0-5.0); NEUTROPHILS # 6.1 10^3/uL (1.5-8.5); NEUTROPHILS % 72.6 % (36.0-66.0); PLATELET COUNT, AUTOMATED 244 10^3/uL (150-450); WHITE BLOOD COUNT 8.4 10^3/uL (4.0-10.0)
[2019-08-19 17:00] LABS: INR 1.16; PROTHROMBIN TIME 14.5 SECONDS (11.8-14.0)
[2019-08-19] MEDS ORDERED: IPRATROPIUM 0.5MG/ALBUTEROL 2.5MG INH SOL UD 3ML (DUONEB)(J7620) NEB ONE (17:00)
[2019-08-19 17:13] LABS: INFLUENZA A AMPLIFICATION NEGATIVE (NEGATIVE); INFLUENZA B AMPLIFICATION NEGATIVE (NEGATIVE)
[2019-08-19 17:21] LABS: ALBUMIN 3.3 GM/DL (3.2-5.2); ALT/SGPT 49 U/L (12-78); BILIRUBIN,DIRECT 0.4 MG/DL (0.0-0.2); BILIRUBIN,TOTAL 1.5 MG/DL (0.2-1.0); BLOOD UREA NITROGEN 14 MG/DL (7-18); CALCIUM LEVEL 8.8 MG/DL (8.5-10.1); CARBON DIOXIDE LEVEL 25 MEQ/L (21-32); CHLORIDE LEVEL 100 MEQ/L (98-107); CK-MB VALUE MASS 5.9 NG/ML (<3.6); CPK CREATINE PHOSPHOKINASE 106 U/L (39-308); CREATININE FOR GFR 0.89 MG/DL (0.70-1.30); GLOMERULAR FILTRATION RATE > 60.0 (>56); GLUCOSE, FASTING 132 MG/DL (70-100); MB/CK RELATIVE INDEX 5.57 (< OR =4); NT-PRO BNP 6836 PG/ML (<125); POTASSIUM SERUM 4.6 MEQ/L (3.5-5.1); SODIUM LEVEL 134 MEQ/L (136-145); TOTAL PROTEIN 6.1 GM/DL (6.4-8.2); TROPONIN I 0.02 NG/ML (< 0.10)
[2019-08-19] MEDS ORDERED: ISOVUE-370 76% 100ML VIAL (Q9967) As Ordered ONE (17:38)
--- NOTE | 2019-08-19 17:39 | REPVR ---
PROCEDURE INFORMATION: Exam: US Duplex Lower Extremity Veins Exam date and time: 08/19/2019 5:32 PM Age: 58 years old Clinical indication: Pain; Leg, lower; Bilateral; Additional info: Swelling TECHNIQUE: Imaging protocol: Real-time duplex ultrasound of the Lower Extremities with 2-D rosenbaum scale, color Doppler flow and spectral waveform analysis with image documentation. Complete exam focused on the bilateral lower extremity veins. COMPARISON: No relevant prior studies available. FINDINGS: Right deep veins: Unremarkable. The common femoral, femoral, proximal profunda femoral and popliteal veins are patent without thrombus. Normal Doppler waveforms. Normal compressibility and/or augmentation response. Right superficial veins: Saphenofemoral junction is patent without thrombus. Left deep veins: Unremarkable. The common femoral, femoral, proximal profunda femoral and popliteal veins are patent without thrombus. Normal Doppler waveforms. Normal compressibility and/or augmentation response. Left superficial veins: Saphenofemoral junction is patent without thrombus. Soft tissues: Bilateral lower leg edema. IMPRESSION: Bilateral lower leg edema. No DVT. Electronically signed by: Ramo Charles On 08/19/2019 17:38:35 PM
--- NOTE | 2019-08-19 17:46 | REP ---
CHEST, SINGLE VIEW: Single view of the chest is performed. Comparison made with multiple prior exams, most recently 03/29/2019. Chronic fibrotic changes are again seen bilaterally which appear stable. No acute infiltrate is seen. Cardiac silhouette is mildly prominent. It appears larger than on prior studies. Mediastinal silhouette is unchanged. Electronically Signed by Mac Al MD 08/20/2019 05:02 P
--- NOTE | 2019-08-19 18:35 | REPVR ---
PROCEDURE INFORMATION: Exam: CT Angiography Chest With Contrast Exam date and time: 08/19/2019 5:35 PM Age: 58 years old Clinical indication: Shortness of breath; Additional info: SOB TECHNIQUE: Imaging protocol: Computed tomographic angiography of the chest with intravenous contrast. 3D rendering: MIP and/or 3D reconstructed images were created by the technologist. Radiation optimization: All CT scans at this facility use at least one of these dose optimization techniques: automated exposure control; mA and/or kV adjustment per patient size (includes targeted exams where dose is matched to clinical indication); or iterative reconstruction. Contrast material: ISOVUE 370; Contrast volume: 75 ml; Contrast route: IV; COMPARISON: CT Chest without contrast 03/29/2019 5:51 PM FINDINGS: Pulmonary arteries: There is enlargement of the central pulmonary arteries, findings which can be associated with pulmonary arterial hypertension which should be correlated clinically. Aorta: The aorta demonstrates mild atherosclerotic calcification. Lungs: Severe paraseptal and centrilobular emphysema demonstrated bilaterally most pronounced in the upper lung zones as well as a large bleb in the right lower lobe. Previously demonstrated spiculated opacities in the right lower lobe have cleared may have represented foci of pneumonitis. Spiculated pleural based opacity in the anterior aspect of the left upper lobe has cleared in comparison to the prior study. Bibasilar atelectasis. Well inflated lungs consistent with COPD.The spine demonstrates mild degenerative changes. Small calcified granuloma right lower lobe. Pleural space: Unremarkable. No pneumothorax. No pleural effusion. Heart: Unremarkable. No cardiomegaly. No pericardial effusion. Lymph nodes: Calcified right hilar lymph nodes. Calcified mediastinal lymph nodes. Bones/joints: Unremarkable. No acute fracture. Soft tissues: Unremarkable. IMPRESSION: 1. Severe paraseptal and centrilobular emphysema demonstrated bilaterally most pronounced in the upper lung zones as well as a large bleb in the right lower lobe. Previously demonstrated spiculated opacities in the right lower lobe have cleared may have represented foci of pneumonitis. 2. Spiculated pleural based opacity in the anterior aspect of the left upper lobe has cleared in comparison to the prior study. 3. There is enlargement of the central pulmonary arteries, findings which can be associated with pulmonary arterial hypertension which should be correlated clinically. 4. Findings consistent with remote intrathoracic granulomatous infection. Electronically signed by: Ramo Charles On 08/19/2019 18:35:06 PM
[2019-08-19] MEDS ORDERED: methylPREDNISolone INJ 125 MG/2 ML VIAL (J2930) IV ONE (18:45)
[2019-08-19] MEDS ORDERED: FUROSEMIDE 40 MG/4 ML VIAL (J1940) IV ONE (18:45)
[2019-08-19] MEDS ORDERED: VENTAER INH (19:25)
[2019-08-19] MEDS ORDERED: MAALOX 30 ML SUSP *UDC PO PRN (19:45)
[2019-08-19] MEDS ORDERED: ACETAMINOPHEN TAB 650MG DOSE (2X325MG) PO PRN (19:45)
[2019-08-19] MEDS ORDERED: LEVALBUTEROL 1.25 MG/0.5 ML CONCENTRATE NEB NEB PRN (19:45)
[2019-08-19] MEDS ORDERED: MOM 30ML SUSPENSION UDC PO PRN (19:45)
--- NOTE | 2019-08-19 19:48 | HPEPDOC ---
[facility] Medical History & Physical Date of Admission Aug 19, 2019 Date of Service: Aug 19, 2019 Primary Care Physician: EAGLE IRAHETA MD Attending Physician: ANGELIC FELIPE MD History and Physical TIME OF SERVICE: 8:40 PM CHIEF COMPLAINT: Shortness of breath HISTORY OF PRESENT ILLNESS: This is a 58-year-old gentleman who presents with complaints of shortness of breath for 4 days that is worse with exertion, associated with lower extremity edema and intermittent coughing. He has been coughing so much that he almost passed out. He denies having chest pain, headaches, blurry vision, fever or chills. Per discussion with ER provider, his workup was remarkable for cardiomegaly on the chest x-ray and elevated BNP. Received nebs, steroids and Lasix. REVIEW OF SYSTEMS: 12 point review of systems negative except as listed in HPI PAST MEDICAL/ SURGICAL HISTORY: COPD Chronic oxygen-dependent respiratory failure (2 L) Dyslipidemia Pulmonary nodules Pulmonary hypertension Status post gastrectomy Status post resection of adenomatous polyps SOCIAL HISTORY: Former smoker FAMILY HISTORY: Unknown because he is adopted ALLERGIES: Please see below. HOME MEDICATIONS: Please see below. Vital Signs Date Time Temp Pulse Resp B/P (MAP) Pulse Ox O2 Delivery O2 Flow Rate FiO2 08/19/19 12:26 98.4 107 18 101/74 (83) 96 Room Air 08/19/19 15:59 2.0 PHYSICAL EXAMINATION: GEN: well nourished / well developed/ NAD INTEGUMENT: He doesn't have facial plethora HEENT:NCAT / lips are not cyanotic / is and have pursed lip breathing /NC in place/ mucus membranes moist and pink / sclera anicteric CVS: RRR/ radial pulses intact / +2 lower extremity edema LUNGS: there is no nasal flaring / is able to speak full sentences without stopping to take a breath / is not using accessory muscles / as prominent expiratory wheezing ABDOMEN: soft & not tender with palpation NEURO: CN 2-12 are grossly intact / speech is not dysarthric PSYCH: alert and oriented to person place and time/ able to understand and follow all commands LABORATORY DATA: Blood Gas Bicarbonate Standard 23.1, Venous Blood pH 7.324L, Venous Blood Partial Pressure CO2 49.8, Venous Blood Partial Pressure O2 52.8H, Venous Blood Total Carbon Dioxide 26.8, Venous Blood HCO3 25.3, Venous Blood Oxygen Sat uration 84.6H, Venous Blood Base Excess -1.3, Anion Gap 9, Glomerular Filtration Rate > 60.0, Lactic Acid Level 2.9*H, Calcium Level 8.8, Total Bilirubin 1.5H, Direct Bilirubin 0.4H, Aspartate Amino Transf (AST/SGOT) 31, Alanine Aminotransferase (ALT/SGPT) 49, Alkaline Phosphatase 38L, Total Creatine Kinase 106, Creatine Kinase MB 5.9H, Creatine Kinase MB Relative Index 5.57H, Troponin I 0.02, MS-Rff-O-Type Natriuretic Peptide 6836H, Total Protein 6.1L, Albumin 3.3, Albumin/Globulin Ratio 1.18, Thyroid Stimulating Hormone (TSH) 1.740, Influenza Type A (RT-PCR) NEGATIVE, Influenza Type B (RT-PCR) NEGATIVE IMAGING: Chest x-ray " Chronic fibrotic changes are again seen bilaterally which appear stable. No acute infiltrate is seen. Cardiac silhouette is mildly prominent. It appears larger than on prior studies. Mediastinal silhouette is unchanged." Ultrasound" IMPRESSION: Bilateral lower leg edema. No DVT. " CT chest " IMPRESSION: 1. Severe paraseptal and centrilobular emphysema demonst rated bilaterally most pronounced in the upper lung zones as well as a large bleb in the right lower lobe. Previously demonstrated spiculated opacities in the right lower lobe have cleared may have represented foci of pneumonitis. 2. Spiculated pleural based opacity in the anterior aspect of the left upper lobe has cleared in comparison to the prior study. 3. There is enlargement of the central pulmonary arteries, findings which can be associated with pulmonary arterial hypertension which should be correlated clinically. 4. Findings consistent with remote intrathoracic granulomatous infection. " MICROBIOLOGY: Please see below. ASSESSMENT: is a 58-year-old with a past medical COPD, chronic O2 dependent respiratory failure, dyslipidemia, and pulmonary nodules who is admitted for evaluation of dyspnea due a combination of acute COPD and fluid overload due to undiagnosed CHF or acute pulmonary hypertension. ASSESSMENT: 1. SIRS Based on chest imaging studies and respiratory panel, we don't have a source of infection. Clinically he doesn't appear toxic SIRS criteria include HR >90 /RR> 20 Lactic acid >2 Plan: admit to PCU / telemetry / Sepsis protocol w repeat lactic acid / give 1 dose of levofloxacin / we will not give IV fluids to avoid worsening fluid overload/f/u blood cx/ there is no need to order a UA because he doesn't have abdominal pain / Acetaminophen PRN for fever / target MAP 65 to 70 / f/u Is and Os with target UOP of at least 0.5 ml/kg/H / target serum glucose 140-180 while acutely ill 2. Dyspnea and bilateral lower extremity edema, likely due to fluid overload. CT of the chest showed pulmonary edema, which can contribute to fluid overload. He may also have undiagnosed CHF His chest x-ray shows congestion and his BNP is elevated. His renal function is unremarkable. Plan: Monitor I's and O's and daily weights/restrict salt to 2 g and fluids to 2 L/2. Lasix/follow-up serial trops and echocardiogram 3. Acute COPD Possibly due to viral infection that is not captured on our panel or aspiration. Less likely triggered by [place] He received Solu-Medrol in the ER Plan: supplemental O2 / continuous pulse oximetry / aspiration precautions / Dunebs Q6H, levalbuterol Q4HP, Prednisone + PPI / he received one dose of levofloxacin, the daytime team can determine if this medication should be continued in the morning / Taylor Mendoza / refer to [facility] for repeat PFTs and Pulmonary Rehab when ready for d/c 4. Lactic Acidosis This may be due to sepsis? Dehydration or neb treatments. Plan: Trend lactic acid DVT PROPHYLAXIS: Lovenox DISPOSITION: Home after more than 2 midnight's stay Laboratory Data Microbiology Microbiology 08/19/19 Blood Culture, Received Pending 08/19/19 Blood Culture, Received Pending Home Medications Scheduled Fluticasone/Vilanterol (Breo Ellipta 200-25 Mcg INH) 1 Inh Inh, 1 PUFF INH DAILY Prednisone (Prednisone) 1 Mg Tablet, 10 MG PO DAILY Tiotropium [place] Monohydrate (Spiriva) 5 Inhalation/Inhaler Powd, 1 INHALATION INH DAILY Scheduled PRN Albuterol Sulfate (Ventolin Hfa) 18 Gm Hfa.aer.ad, 2 PUFF INH Q4H PRN for wheezing Allergies Coded Allergies: No Known Allergies (Unverified , 09/09/16) A-FIB/CHADSVASC A-FIB History Current/History of A-Fib/PAF?: No Current PO Anticoag Therapy: No ANGELIC FELIPE MD Aug 19, 2019 19:48
[2019-08-19] MEDS ORDERED: LevoFLOXacin IV 750 MG in IV 1 EA IV SCH (20:00)
[2019-08-19] MEDS: IPRATROPIUM 0.5MG/ALBUTEROL 2.5MG INH SOL UD 3ML (DUONEB)(J7620) NEB SCH (20:13)
[2019-08-19] MEDS: DOCUSATE SODIUM 100 MG CAP PO SCH (20:13)
[2019-08-19 20:43] LABS: PHOSPHORUS LEVEL 4.4 MG/DL (2.5-4.9)
[2019-08-19 20:47] LABS: D-DIMER QUANT 889.3 ng/ml (<500)
--- NOTE | 2019-08-19 21:18 | ECGEPIP ---
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
[2019-08-20] VITALS (13 sets, daily range): BP systolic 90–109; BP diastolic 62–91; O2SAT 92–96
[2019-08-20] MEDS: FUROSEMIDE 40 MG/4 ML VIAL (J1940) IV SCH ×2 (01:40→12:00)
[2019-08-20] MEDS ORDERED: BENZONATATE 100 MG CAP PO PRN (02:45)
[2019-08-20] MEDS: IPRATROPIUM 0.5MG/ALBUTEROL 2.5MG INH SOL UD 3ML (DUONEB)(J7620) NEB SCH ×4 (03:27→19:40)
[2019-08-20 06:11] LABS: HEMATOCRIT 37.8 % (42.0-52.0); HEMOGLOBIN 12.9 g/dl (13.5-17.5); MEAN CORPUSCULAR HEMOGLOBIN 28.9 pg (27.0-33.0); MEAN CORPUSCULAR HGB CONC 34.1 g/dl (32.0-36.5); MEAN CORPUSCULAR VOLUME 84.8 fl (80.0-96.0); PLATELET COUNT, AUTOMATED 215 10^3/uL (150-450); RED BLOOD COUNT 4.46 10^6/uL (4.30-6.10); WHITE BLOOD COUNT 5.7 10^3/uL (4.0-10.0)
[2019-08-20 06:24] LABS: BLOOD UREA NITROGEN 12 MG/DL (7-18); CALCIUM LEVEL 8.6 MG/DL (8.5-10.1); CARBON DIOXIDE LEVEL 33 MEQ/L (21-32); CHLORIDE LEVEL 100 MEQ/L (98-107); CREATININE FOR GFR 0.84 MG/DL (0.70-1.30); GLOMERULAR FILTRATION RATE > 60.0 (>56); GLUCOSE, FASTING 134 MG/DL (70-100); POTASSIUM SERUM 4.4 MEQ/L (3.5-5.1); SODIUM LEVEL 136 MEQ/L (136-145)
[2019-08-20] MEDS: DOCUSATE SODIUM 100 MG CAP PO SCH ×2 (09:00→20:48)
[2019-08-20] MEDS ORDERED: FLUBLOK(EGG FREE)(QUAD)INFLUENZA VACC 0.5ML SYRINGE (90682)18YRS&OLDER IM ONE (09:00)
[2019-08-20] MEDS: predniSONE 20 MG TAB PO SCH (09:23)
[2019-08-20] MEDS: ENOXAPARIN 40 MG/0.4 ML SYRINGE (J1650) SC SCH (09:24)
[2019-08-20] MEDS: PANTOPRAZOLE 40MG TAB (PROTONIX) PO SCH (09:25)
--- NOTE | 2019-08-20 10:01 | IPNPDOC ---
Subjective Date Seen The patient was seen on 08/20/19. Subjective Chief Complaint/HPI Patient is comfortable, shortness of breath is improved General: Denies: ROS Unobtainable, Chills, Night Sweats, Fatigue, Malaise, Normal Appetite, Other Symptoms Constitutional: Denies: Chills, Fever, Malaise, Night Sweats, Weakness, Fatigue, Weight Loss, Lethargy, Other ENT: Denies: Head Aches, Ear Pain, Dysphagia, Sinus Congestion, Post Nasal Drip, Sore Throat, Epistaxis, Other Symptoms Pulmonary: Reports: Dyspnea Cardiovascular: Denies: Chest Pain, Palpitations, Orthopnea, Paroxysmal Noc. Dyspnea, Edema, Lt Headedness, Other Symptoms Gastrointestinal: Denies: Nausea, Vomiting, Abdominal Pain, Diarrhea, Constipation, Melena, Hematochezia, Other Symptoms Musculoskeletal: Denies: Neck Pain, Back Pain, Shoulder Pain, Arm Pain, Hand Pain, Leg Pain, Foot Pain, Joint Pain, Muscle Pain, Spasms, Other Symptoms Neurological: Denies: Weakness, Numbness, Incoordination, Change in speech, Confusion, Seizures, Other Symptoms Objective Physical Examination General Exam: Positive: Alert, Cooperative Eye Exam: Positive: PERRLA, Conjunctiva & lids normal ENT Exam: Positive: Atraumatic, Mucous membr. moist/pink Chest Exam: Positive: Rales, Wheezing Heart Exam: Positive: Rate Normal, Normal S1, Normal S2 Abdomen Exam: Positive: Normal bowel sounds, Soft, Tenderness Extremity Exam: Positive: Normal pulses, Other (bipedal edema) Assessment /Plan Problems (1) Pulmonary edema Status: Acute Problem Text: Dyspnea and bilateral lower extremity edema, likely due to fluid overload. CT of the chest showed pulmonary edema, which can contribute to fluid overload. He may also have undiagnosed CHF His chest x-ray shows congestion and his BNP is elevated. His renal function is unremarkable. Will monitor intake and output Echocardiogram is pending Repeat lab work is essentially within normal limits Continue present management (2) COPD (chronic obstructive pulmonary disease) Status: Acute Problem Text: Acute exacerbation of COPD Possibly due to viral infection that is not captured on our panel or aspiration. Less likely triggered by [place] He received Solu-Medrol in the ER Continue oxygen supplement Continue DuoNeb every 6 hours and Xopenex every 4 hours Continue prednisone and PPI Will continue by mouth Levaquin Plan/VTE VTE Prophylaxis Ordered?: Yes [facility]O Vital Signs Date Time Temp Pulse Resp B/P (MAP) Pulse Ox O2 Delivery O2 Flow Rate FiO2 08/20/19 08:00 2.0 08/20/19 07:46 97.8 90 16 109/75 (86) 96 Nasal Cannula I&O- Last 24 Hours up to 6 AM 08/20/19 06:00 Intake Total 450 ml Output Total 3200 ml Balance -2750 ml Laboratory Data 24H LABS Laboratory Tests 2 08/19/19 16:25: Immature Granulocyte % (Auto) 3.6H, Neutrophils (%) (Auto) 72.6H, Lymphocytes (%) (Auto) 13.6L, Monocytes (%) (Auto) 9.4H, Eosinophils (%) (Auto) 0.2, Basophils (%) (Auto) 0.6, Neutrophils # (Auto) 6.1, Lymphocytes # (Auto) 1.2L, Monocytes # (Auto) 0.8, Eosinophils # (Auto) 0.0, Basophils # (Auto) 0.1, Nucleated Red Blood Cells % (auto) 0.0, Prothrombin Time 14.5H, Prothromb Time International Ratio 1.16, D-Dimer, Quantitative 889.30H, Blood Gas Bicarbonate Standard 23.1, Venous Blood pH 7.324L, Venous Blood Partial Pressure CO2 49.8, Venous Blood Partial Pressure O2 52.8H, Venous Blood Total Carbon Dioxide 26.8, Venous Blood HCO3 25.3, Venous Blood Oxygen Saturation 84.6H, Venous Blood Base Excess -1.3, Anion Gap 9, Glomerular Filtration Rate > 60.0, Lactic Acid Level 2.9*H, Calcium Level 8.8, Phosphorus Level 4.4, Magnesium Level 2.0, Total Bilirubin 1.5H, Direct Bilirubin 0.4H, Aspartate Amino Transf (AST/SGOT) 31, Alanine Aminotransferase (ALT/SGPT) 49, Alkaline Phosphatase 38L, Total Creatine Kinase 106, Creatine Kinase MB 5.9H, Creatine Kinase MB Relative Index 5.57H, Troponin I 0.02, PM-Gvh-M-Type Natriuretic Peptide 6836H, Total Protein 6.1L, Albumin 3.3, Albumin/Globulin Ratio 1.18, Thyroid Stimulating Hormone (TSH) 1.740, Influenza Type A (RT-PCR) NEGATIVE, Influenza Type B (RT-PCR) NEGATIVE 08/19/19 20:52: Lactic Acid Level 3.5*H, Troponin I < 0.02 08/19/19 23:50: Troponin I < 0.02 08/20/19 00:00: Lactic Acid Followup at 4 Hours 2.4*H 08/20/19 05:36: Nucleated Red Blood Cells % (auto) 0.0, Anion Gap 3L, Glomerular Filtration Rate > 60.0, Calcium Level 8.6, Magnesium Level 2.0 CBC/BMP Laboratory Tests 08/19/19 16:25 08/20/19 05:36 Microbiology Microbiology 08/20/19 Respiratory Virus Panel (PCR) (DONNA) - Final, Complete 08/19/19 Blood Culture, Received Pending 08/19/19 Blood Culture, Received Pending LYUDMILA ARENAS MD Aug 20, 2019 10:01
[2019-08-20] MEDS ORDERED: SLF 3 ML SYR IV PRN (11:00)
[2019-08-20] MEDS: LevoFLOXacin 500 MG TABLET PO SCH (11:50)
[2019-08-20] MEDS: SLF 3 ML SYR IV SCH ×2 (14:49→20:48)
--- NOTE | 2019-08-20 22:05 | ECHO ---
DATE OF PROCEDURE: 08/20/2019 REFERRING PHYSICIAN: Dr. Vane Silva INDICATION: Dyspnea. HEIGHT: 168 cm WEIGHT: 68 kg 2D MEASUREMENTS: Ventricular septum: 0.99 cm Posterior wall: 0.87 cm Left ventricle diastole: 3.5 cm Aortic root: 2.7 cm Left atrium: 2.8 cm Left atrial volume index: 19 Inferior vena cava: 2.7 cm with marked reduction of respiratory variation. DOPPLER MEASUREMENTS: No aortic regurgitation. No aortic stenosis. Very mild mitral regurgitation. No mitral stenosis. Severe tricuspid regurgitation. Estimated right ventricle systolic pressure: At least 74 mmHg assuming a pressure of at least 20 mmHg. No pulmonic regurgitation. MITRAL ANNULAR TISSUE DOPPLER: E prime lateral: 13.5 cm/s E prime septal: 10.1 cm/s DESCRIPTION: Rhythm was sinus tachycardia. Image quality was fair. No pericardial effusion. This was a 2D, M-mode, color flow Doppler and pulse wave Doppler examination and included mitral annular tissue Doppler. CONCLUSIONS: 1. Suggestive of severe elevation of estimated right ventricle systolic pressure (at least 74 mmHg). Moderate right ventricle dilatation by visual assessment. Right ventricle hypertrophy with prominent moderator band and trabeculations of the right ventricle. At least moderate reduction in overall right ventricle contraction performance. Partial flattening of the ventricular septum in both systole and diastole in keeping with both pressure and volume overload of the right ventricle. Structurally normal appearing tricuspid leaflets. Severe tricuspid regurgitation. Systolic flow reversal in the hepatic veins consistent with severe tricuspid regurgitation. Severe right atrial dilatation by visual assessment. Inferior vena cava plethora with marked reduction of respiratory variation suggestive of elevated central venous pressure of at least 20 mmHg. 2. Normal left ventricle internal dimensions and wall thickness. Normal regional left ventricular (LV) wall motion and wall thickening. Normal LV systolic function. Left ventricular ejection fraction (LVEF) 70% by visual estimate. Normal LV diastolic function. 3. Mild aortic valve sclerosis of a 3-cusp aortic valve. No aortic regurgitation. 4. Otherwise normal appearing echocardiogram Doppler findings.
[2019-08-21] MEDS: FUROSEMIDE 40 MG/4 ML VIAL (J1940) IV SCH
[2019-08-21] MEDS: IPRATROPIUM 0.5MG/ALBUTEROL 2.5MG INH SOL UD 3ML (DUONEB)(J7620) NEB SCH ×2 (01:51→07:28)
[2019-08-21 04:00] VITALS: BP 100/70
[2019-08-21] MEDS: SLF 3 ML SYR IV SCH (05:55)
[2019-08-21] MEDS: LevoFLOXacin 500 MG TABLET PO SCH (05:55)
[2019-08-21 06:15] LABS: BASO % 0.4 % (0.0-1.0); EOS % 0.3 % (0.0-3.0); HEMATOCRIT 38.6 % (42.0-52.0); HEMOGLOBIN 12.8 g/dl (13.5-17.5); LYMPH # 1.4 10^3/uL (1.5-5.0); LYMPH % 13.8 % (24.0-44.0); MEAN CORPUSCULAR HEMOGLOBIN 29.2 pg (27.0-33.0); MEAN CORPUSCULAR HGB CONC 33.2 g/dl (32.0-36.5); MEAN CORPUSCULAR VOLUME 87.9 fl (80.0-96.0); MONO % 9.1 % (0.0-5.0); NEUTROPHILS # 7.7 10^3/uL (1.5-8.5); NEUTROPHILS % 74.4 % (36.0-66.0); PLATELET COUNT, AUTOMATED 194 10^3/uL (150-450); RED BLOOD COUNT 4.39 10^6/uL (4.30-6.10); WHITE BLOOD COUNT 10.4 10^3/uL (4.0-10.0)
[2019-08-21 06:33] LABS: ALBUMIN 2.7 GM/DL (3.2-5.2); ALT/SGPT 35 U/L (12-78); BLOOD UREA NITROGEN 18 MG/DL (7-18); CALCIUM LEVEL 8.5 MG/DL (8.5-10.1); CARBON DIOXIDE LEVEL 34 MEQ/L (21-32); CHLORIDE LEVEL 103 MEQ/L (98-107); CREATININE FOR GFR 0.74 MG/DL (0.70-1.30); GLOMERULAR FILTRATION RATE > 60.0 (>56); GLUCOSE, FASTING 87 MG/DL (70-100); POTASSIUM SERUM 3.9 MEQ/L (3.5-5.1); SODIUM LEVEL 141 MEQ/L (136-145); TOTAL PROTEIN 5.1 GM/DL (6.4-8.2)
[2019-08-21 07:00] VITALS: O2SAT 98
[2019-08-21 08:00] VITALS: BP 105/76; O2SAT 91
[2019-08-21 09:00] VITALS: O2SAT 95
[2019-08-21] MEDS: DOCUSATE SODIUM 100 MG CAP PO SCH (09:00)
[2019-08-21] MEDS: PANTOPRAZOLE 40MG TAB (PROTONIX) PO SCH (09:44)
[2019-08-21] MEDS: predniSONE 20 MG TAB PO SCH (09:44)
[2019-08-21] MEDS: ENOXAPARIN 40 MG/0.4 ML SYRINGE (J1650) SC SCH (09:45)
[2019-08-21] MEDS ORDERED: POTA10CA32 PO (09:57)
[2019-08-21] MEDS ORDERED: LASI20TA3 PO (09:57)
[2019-08-21] MEDS ORDERED: LEVA1TAB2 PO (09:57)
[2019-08-21] MEDS ORDERED: PRED10TA2 PO (09:57)
[2019-08-21] MEDS ORDERED: COMBAER6 INH (09:57)
[2019-08-21 10:00] VITALS: O2SAT 96
--- NOTE | 2019-08-21 10:03 | DS.PDOC ---
Discharge Summary General Date of Admission Aug 19, 2019 at 19:39 Date of Discharge 08/21/19 Discharge Summary PROCEDURES PERFORMED DURING STAY: None. ADMITTING DIAGNOSES: 1. Exacerbation of COPD. DISCHARGE DIAGNOSES: 1. Exacerbation of COPD, acute diastolic CHF. COMPLICATIONS/CHIEF COMPLAINT: Dyspnea. HISTORY OF PRESENT ILLNESS: This is a 58-year-old gentleman who presents with complaints of shortness of breath for 4 days that is worse with exertion, associated with lower extremity edema and intermittent coughing. He has been coughing so much that he almost passed out. He denies having chest pain, headaches, blurry vision, fever or chills. Per discussion with ER provider, his workup was remarkable for cardiomegaly on the chest x-ray and elevated BNP. Received nebs, steroids and Lasix.. HOSPITAL COURSE: [ (1) Pulmonary edema Dyspnea and bilateral lower extremity edema, likely due to fluid overload. CT of the chest showed pulmonary edema, which can contribute to fluid overload. He may also have undiagnosed CHF His chest x-ray shows congestion and his BNP is elevated. His renal function is unremarkable. Will monitor intake and output Echocardiogram report shows, severe elevation of right systolic ventricular pressure , EF and the left ventricle are within normal limits Patient will be discharged home on by mouth Lasix and potassium supplement Patient has been advised to follow-up with his primary care physician and cardiology on 08/23/2019 Continue all other home meds (2) COPD (chronic obstructive pulmonary disease) Exacerbation of COPD, most likely secondary to to viral infection that is not captured on our panel or aspiration. Less likely triggered by ND Patient also received oxygen supplement as well as DuoNeb every 6 hours and Xopenex every 4 hours Continue prednisone PPI and Levaquin as an outpatient and will also add Combivent inhaler as well Repeat lab work is essentially within normal limits Patient will be discharged home today on all current meds and follow with PCP as soon as possible DISCHARGE MEDICATIONS: Please see below. ALLERGIES: Please see below. PHYSICAL EXAMINATION ON DISCHARGE: VITAL SIGNS: Please see below. GENERAL: Within normal limits HEENT: PERRLA. Extraocular muscles intact NECK: Supple. Negative JVD, negative lymphadenopathy CARDIOVASCULAR EXAMINATION: S1, S2, regular RESPIRATORY EXAMINATION: Clear to A&P ABDOMINAL EXAMINATION: , Soft, nontender, bowel sounds present. No organomegaly EXTREMITIES: No clubbing, cyanosis, edema SKIN: Normal NEUROLOGICAL EXAMINATION: . No focal motor sensory deficit PSYCHIATRIC EXAMINATION: NL LABORATORY DATA: Please see below. IMAGING: Echocardiogram:1. Suggestive of severe elevation of estimated right v entricle systolic pressure (at least 74 mmHg). Moderate right ventricle dilatation by visual assessment. Right ventricle hypertrophy with prominent moderator band and trabeculations of the right ventricle. At least moderate reduction in overall right ventricle contraction performance. Partial flattening of the ventricular septum in both systole and diastole in keeping with both pressure and volume overload of the right ventricle. Structurally normal appearing tricuspid leaflets. Severe tricuspid regurgitation. Systolic flow reversal in the hepatic veins consistent with severe tricuspid regurgitation. Severe right atrial dilatation by visual assessment. Inferior vena cava plethora with marked reduction of respiratory variation suggestive of elevated central venous pressure of at least 20 mmHg. 2. Normal left ventricle internal dimensions and wall thickness. Normal regional left ventricular (LV) wall motion and wall thickening. Normal LV systolic function. Left ventricular ejection fraction (LVEF) 70% by visual estimate. Normal LV diastolic function. 3. Mild aortic valve sclerosis of a 3-cusp aortic valve. No aortic regurgitation. 4. Otherwise normal appearing echocardiogram Doppler findings. PROGNOSIS: Good ACTIVITY: As tolerated. DIET: As tolerated DISCHARGE PLAN: Follow with PCP and cardiology as soon as possible DISPOSITION: Home . DISCHARGE INSTRUCTIONS: 1. As per discharge instructions. ITEMS TO FOLLOWUP ON ON OUTPATIENT: 1. . DISCHARGE CONDITION: Stable. TIME SPENT ON DISCHARGE: 40 minutes. Vital Signs/I&Os Vital Signs Date Time Temp Pulse Resp B/P (MAP) Pulse Ox O2 Delivery O2 Flow Rate FiO2 08/21/19 08:00 98.4 91 16 105/76 (86) 98 Nasal Cannula 2.0 I&O- Last 24 Hours up to 6 AM 08/21/19 05:59 Intake Total 1108 ml Output Total 1320 ml Balance -212 ml Laboratory Data Labs 24H Laboratory Tests 2 08/20/19 11:56: Lactic Acid Level 3.4*H 08/20/19 16:20: Lactic Acid Followup at 4 Hours 2.3*H 08/21/19 05:27: Immature Granulocyte % (Auto) 2.0, Neutrophils (%) (Auto) 74.4H, Lymphocytes (%) (Auto) 13.8L, Monocytes (%) (Auto) 9.1H, Eosinophils (%) (Auto) 0.3, Basophils (%) (Auto) 0.4, Neutrophils # (Auto) 7.7, Lymphocytes # (Auto) 1.4L, Monocytes # (Auto) 1.0H, Eosinophils # (Auto) 0.0, Basophils # (Auto) 0.0, Nucleated Red Blood Cells % (auto) 0.0, Anion Gap 4L, Glomerular Filtration Rate > 60.0, Calcium Level 8.5, Total Bilirubin 1.0, Aspartate Amino Transf (AST/SGOT) 14, Alanine Aminotransferase (ALT/SGPT) 35, Alkaline Phosphatase 33L, Total Protein 5.1L, Albumin 2.7L, Albumin/Globulin Ratio 1.13 CBC/BMP Laboratory Tests 08/21/19 05:27 Microbiology Microbiology 08/20/19 Respiratory Virus Panel (PCR) (DONNA) - Final, Complete 08/19/19 Blood Culture - Final, Complete Bacillus Sp., Not Anthracis 08/19/19 Blood Culture - Preliminary, Resulted No growth after 24 hours . All specim... Discharge Medications Scheduled Fluticasone/Vilanterol (Breo Ellipta 200-25 Mcg INH) 1 Inh Inh, 1 PUFF INH DAILY, (Reported) Furosemide (Lasix) 20 Mg Tablet, 20 MG PO DAILY Ipratropium/Albuterol Sulfate (Combivent Respimat 20-100 Mcg) 4 Gm Mist.inhal, 2 PUFF INH TID Levofloxacin (Levaquin) 500 Mg Tablet, 500 MG PO DAILY@06 Potassium Chloride (Potassium Chloride) 10 Meq Capsule.er, 1 CAP PO DAILY Prednisone (Prednisone) 10 Mg Tablet, 10 MG PO TAPER Take 4 tabs daily x 3 days, then 3 tabs daily x 3 days, then 2 tabs daily x 3 days, then 1 tab daily x 3 days and stop Tiotropium [place] Monohydrate (Spiriva) 5 Inhalation/Inhaler Powd, 1 INHALATION INH DAILY, (Reported) Allergies Coded Allergies: No Known Allergies (Unverified , 09/09/16) LYUDMILA ARENAS MD Aug 21, 2019 10:03
[2019-08-21 11:00] VITALS: O2SAT 97
== END 2019-08-21 11:57 | disposition home or self-care (01) | DRG 140 ==
LOC: M ED 15:57 → M ED INP 19:39 → ENRESERVDT 23:34 → ENRESERVTM 23:34 → M PCU 08-20 00:06
PROVIDERS: ADMIT Internal Medicine; ATTEND Internal Medicine
DX: J44.1 Chronic obstructive pulmonary disease with (acute) exacerbation (principal); J81.0 Acute pulmonary edema; I50.31 Acute diastolic (congestive) heart failure; J96.10 Chronic respiratory failure, unspecified whether with hypoxia or hypercapnia; I27.20 Pulmonary hypertension, unspecified; E87.2 Acidosis; R65.10 Systemic inflammatory response syndrome (SIRS) of non-infectious origin without acute organ dysfunction; Z99.81 Dependence on supplemental oxygen; I51.7 Cardiomegaly; E78.5 Hyperlipidemia, unspecified; R91.1 Solitary pulmonary nodule; Z87.891 Personal history of nicotine dependence; Z79.899 Other long term (current) drug therapy

== ENCOUNTER 2019-08-23 10:20 | Observation (INO) | payer BC ==
[~2019-08-23] VITALS: Ht 170.2 cm; Wt 62.5 kg
[~2019-08-23 10:20] MED LIST changes: +COMBAER6 INH; +LASI20TA3 PO; +LEVA1TAB2 PO; +POTA10CA32 PO; +PRED10TA2 PO; +PRED1TABL PO; +VENTAER INH
--- NOTE | 2019-08-23 10:56 | REP ---
No chest, 10:39 a.m., single AP view with the patient sitting: Comparison is 08/19/2019. Lung pereira again appear hyperinflated with bullous changes, unchanged. There is a parenchymal scar superiorly in the right lung, unchanged. There is effacement right costophrenic angle, unchanged, possibly a small right pleural effusion. Cardiac size appears enlarged, unchanged. The ryan, mediastinum, skeletal structures are unchanged. Impression: There is no interval change. Electronically Signed by Mac Velasquez MD 08/23/2019 10:48 A
[2019-08-23 11:01] LABS: BASO # 0.1 10^3/uL (0.0-0.2); BASO % 0.5 % (0.0-1.0); EOS % 0.3 % (0.0-3.0); HEMATOCRIT 43.3 % (42.0-52.0); HEMOGLOBIN 14.4 g/dl (13.5-17.5); LYMPH # 0.8 10^3/uL (1.5-5.0); LYMPH % 6.4 % (24.0-44.0); MEAN CORPUSCULAR HEMOGLOBIN 29.4 pg (27.0-33.0); MEAN CORPUSCULAR HGB CONC 33.3 g/dl (32.0-36.5); MEAN CORPUSCULAR VOLUME 88.5 fl (80.0-96.0); MONO # 0.5 10^3/uL (0.0-0.8); MONO % 3.9 % (0.0-5.0); NEUTROPHILS % 84.7 % (36.0-66.0); PLATELET COUNT, AUTOMATED 198 10^3/uL (150-450); RED BLOOD COUNT 4.89 10^6/uL (4.30-6.10); WHITE BLOOD COUNT 11.8 10^3/uL (4.0-10.0)
[2019-08-23] MEDS: IPRATROPIUM 0.5MG/ALBUTEROL 2.5MG INH SOL UD 3ML (DUONEB)(J7620) NEB PRN ×3 (11:15→11:35)
[2019-08-23] MEDS ORDERED: FUROSEMIDE 40 MG/4 ML VIAL (J1940) IV ONE (11:30)
[2019-08-23 11:32] LABS: ALT/SGPT 49 U/L (12-78); BILIRUBIN,DIRECT 0.2 MG/DL (0.0-0.2); BILIRUBIN,TOTAL 1.3 MG/DL (0.2-1.0); BLOOD UREA NITROGEN 19 MG/DL (7-18); CARBON DIOXIDE LEVEL 32 MEQ/L (21-32); CHLORIDE LEVEL 101 MEQ/L (98-107); CK-MB VALUE MASS 4.8 NG/ML (<3.6); CPK CREATINE PHOSPHOKINASE 167 U/L (39-308); CREATININE FOR GFR 0.77 MG/DL (0.70-1.30); GLOMERULAR FILTRATION RATE > 60.0 (>56); GLUCOSE, FASTING 82 MG/DL (70-100); MB/CK RELATIVE INDEX 2.87 (< OR =4); NT-PRO BNP 6452 PG/ML (<125); POTASSIUM SERUM 5.5 MEQ/L (3.5-5.1); SODIUM LEVEL 138 MEQ/L (136-145); TOTAL PROTEIN 5.8 GM/DL (6.4-8.2); TROPONIN I < 0.02 NG/ML (< 0.10)
[2019-08-23] MEDS ORDERED: SPIR1CAP INH (12:15)
[2019-08-23] MEDS ORDERED: LEVO500T3 PO (12:15)
[2019-08-23] MEDS ORDERED: FURO20TA2 PO (12:15)
[2019-08-23] MEDS ORDERED: COMBAER6 INH (12:15)
[2019-08-23] MEDS ORDERED: PRED10TA2 PO (12:15)
[2019-08-23] MEDS ORDERED: POTA10CA32 PO (12:21)
[2019-08-23] MEDS: HEPARIN SOD (PORCINE) 5000 UNITS/ML VIAL (J1644 PER 1000UNITS) SQ SCH ×2 (14:00→20:41)
[2019-08-23 15:40] VITALS: BP 103/75
[2019-08-23] MEDS: MIDODRINE 5 MG TAB PO SCH (16:00)
[2019-08-23] MEDS ORDERED: ACETAMINOPHEN TAB 650MG DOSE (2X325MG) PO PRN (17:30)
[2019-08-23] MEDS: FUROSEMIDE 40 MG/4 ML VIAL (J1940) IV SCH (18:17)
--- NOTE | 2019-08-23 19:11 | HPEPDOC ---
[facility] Medical History & Physical Date of Admission Aug 23, 2019 Date of Service: Aug 23, 2019 Attending Physician: DANISH RUBI MD History and Physical CHIEF COMPLAINT: Shortness of breath HISTORY OF PRESENT ILLNESS: Patient is a 59 year old male who presented to the [facility] ER with complaint of worsening shortness of breath over the past couple of days. The patient was recently hospitalized at [facility] for shortness of breath which was felt to be secondary to a combination of COPD and CHF exacerbation. During his hospitalization he had received IV lasix. Patient had stated that he had felt somewhat better. An Echocardiogram was ordered during his previous hospitalization which demonstrated severe elevation of right ventricular systolic pressure of at least 74mmHg. Patient states that at the time of his discharge he was feeling ok however the next day he had noticed increased swelling his legs, thighs, and abdomen as well as difficulty breathing. He denies any fevers or chills. He admits to a chronic cough PAST MEDICAL HISTORY: 1. COPD with Emphysema 2. Chronic Oxygen Dependent Respiratory Failure 3. Severe Pulmonary Hypertension with 4. History of Pulmonary Nodules 5. Dyslipidemia PAST SURGICAL HISTORY: 1. Gastrectomy 2. Adenomatous polyp resection SOCIAL HISTORY: Patient is a current smoker. He denies any alcohol or illicit or IV drug use. Patient lives at home with his FAMILY HISTORY: Patient is adopted and is unsure of his family history ALLERGIES: Please see below. REVIEW OF SYSTEMS: CONSTITUTIONAL: Denies fevers, chills, unintentional weight-loss. HEENT: Admits to chronic cough. Denies sore throat. Denies dysphagia CARDIOVASCULAR: Denies chest pain, palpitations, or feelings of the heart racing RESPIRATORY: Admits to shortness of breath with chronic oxygen use. Admits to chronic cough. Denies increased sputum production GASTROINTESTINAL: Denies abdominal pain. Denies nausea, vomiting, diarrhea, constipation. GENITOURINARY: Denies increased frequency, urgency, or dysuria SKIN: Denies any rashes or lesions MUSCULOSKELETAL: Admits to chronic back pain NEUROLOGICAL: Denies any changes in gait. Denies any slurring in speech PSYCHIATRIC: Denies depression or anxiety ENDOCRINE: Denies any heat intolerance or cold intolerance HEMATOLOGIC/LYMPHATIC: Denies any easy bruising or bleeding HOME MEDICATIONS: Please see below. PHYSICAL EXAMINATION: VITAL SIGNS: Temperature 97.5, pulse 100, respiratory rate 16, blood pressure 100/58, pulse oximetry 97% on 2L NC. GENERAL APPEARANCE: Patient is awake, alert, and oriented. Appears in no acute distress. Sitting up comfortably in bed HEENT: Atraumatic normocephalic. Eyes are nonicteric. trachea is midline. NC is in place CARDIOVASCULAR: Normal S1, S2. Tachycardic rate. Regular rhythm. No clicks, rubs, or murmurs LUNGS: Diminished lung sounds throughout. No wheezes, rhonchi or rales. No dullness to percussion. Good respiratory effort ABDOMEN: Soft, nondistended. Nontender. No rebound tenderness or guarding. Normoactive bowel sounds throughout. Sacral edema present MUSCULOSKELETAL: 5/5 upper and lower extremity muscle strength EXTREMITIES: 3+ pitting edema in bilateral lower extremities. Full and equal pulses in bilateral upper and lower extremities NEUROLOGICAL: No focal neurological deficits PSYCHIATRIC: Mood and affect appear appropriate LABORATORY DATA: See below. IMAGING: No chest, 10:39 a.m., single AP view with the patient sitting: Comparison is 08/19/2019. Lung pereira again appear hyperinflated with bullous changes, unchanged. There is a parenchymal scar superiorly in the right lung, unchanged. There is effacement right costophrenic angle, unchanged, possibly a small right pleural effusion. Cardiac size appears enlarged, unchanged. The ryan, mediastinum, skeletal structures are unchanged. Impression: There is no interval change. Electronically Signed by Mac Velasquez MD 08/23/2019 10:48 A Echocardiogram from 08/20/2019 DATE OF PROCEDURE: 08/20/2019 REFERRING PHYSICIAN: Dr. Vane Silva INDICATION: Dyspnea. HEIGHT: 168 cm WEIGHT: 68 kg 2D MEASUREMENTS: Ventricular septum: 0.99 cm Posterior wall: 0.87 cm Left ventricle diastole: 3.5 cm Aortic root: 2.7 cm Left atrium: 2.8 cm Left atrial volume index: 19 Inferior vena cava: 2.7 cm with marked reduction of respiratory variation. DOPPLER MEASUREMENTS: No aortic regurgitation. No aortic stenosis. Very mild mitral regurgitation. No mitral stenosis. Severe tricuspid regurgitation. Estimated right ventricle systolic pressure: At least 74 mmHg assuming a pressure of at least 20 mmHg. No pulmonic regurgitation. MITRAL ANNULAR TISSUE DOPPLER: E prime lateral: 13.5 cm/s E prime septal: 10.1 cm/s DESCRIPTION: Rhythm was sinus tachycardia. Image quality was fair. No p ericardial effusion. This was a 2D, M-mode, color flow Doppler and pulse wave Doppler examination and included mitral annular tissue Doppler. CONCLUSIONS: 1. Suggestive of severe elevation of estimated right ventricle systolic pressure (at least 74 mmHg). Moderate right ventricle dilatation by visual assessment. Right ventricle hypertrophy with prominent moderator band and trabeculations of the right ventricle. At least moderate reduction in overall right ventricle contraction performance. Partial flattening of the ventricular septum in both systole and diastole in keeping with both pressure and volume overload of the right ventricle. Structurally normal appearing tricuspid leaflets. Severe tricuspid regurgitation. Systolic flow reversal in the hepatic veins consistent with severe tricuspid regurgitation. Severe right atrial dilatation by visual assessment. Inferior vena cava plethora with marked reduction of respiratory variation suggestive of elevated central venous pressure of at least 20 mmHg. 2. Normal left ventricle internal dimensions and wall thickness. Normal regional left ventricular (LV) wall motion and wall thickening. Normal LV systolic function. Left ventricular ejection fraction (LVEF) 70% by visual estimate. Normal LV diastolic function. 3. Mild aortic valve sclerosis of a 3-cusp aortic valve. No aortic regurgitation. 4. Otherwise normal appearing echocardiogram Doppler findings. DD: Berry Jackson MD [facility] 08/20/192044 DT: [facility] 08/20/192151 DS: TRENA 08/21/19 1033 <Electronically signed by Berry Jackson MD> 08/21/19 1033 DS2: MICROBIOLOGY: Please see below. ASSESSMENT: Patient is a 59 year old male presenting with shortness of breath. He was recently discharged for possible COPD and CHF exacerbation. His recent echocardiogram demonstrated severe pulmonary hypertension with a predicted pulmonary artery pressure of 74mmhg. Patient was admitted for cor pulmonale with right ventricular overload . PLAN: 1. Group 3 Severe Pulmonary Hypertension -Patient has severe pulmonary hypertension likely secondary to his lung disease. He likely has RV overload contributing to his lower extremity edema. Patient will be continued on IV diuretics 40mg BID. Will reassess BMP in the AM. -Echocardiogram from 08/20/2019 above -Patient may benefit from a calcium channel carol however given his soft BP will continue with diuresis. Will consider adding CCB. -Will add nocturnal pulse oximetry to assess CHIVO as possible contributing factor to PAH -Given patients soft BP will add Midodrine for SBP < 90 2. COPD with chronic oxygen dependent respiratory failure -Patient is currently stable and at baseline oxygen requirement of 2L -Will continue on patients home inhalers. Breo Ellipta not on hospital formulary will substitute with Symbicort -Duonebs PRN for shortness of breath 3. DVT prophylaxis -Heparin SQ Vital Signs Vital Signs Date Time Temp Pulse Resp B/P (MAP) Pulse Ox O2 Delivery O2 Flow Rate FiO2 08/23/19 15:40 98.0 108 17 103/75 (84) 98 Nasal Cannula 2.0 Laboratory Data Labs 24H Laboratory Tests 2 08/23/19 10:49: Immature Granulocyte % (Auto) 4.2H, Neutrophils (%) (Auto) 84.7H, Lymphocytes (%) (Auto) 6.4L, Monocytes (%) (Auto) 3.9, Eosinophils (%) (Auto) 0.3, Basophils (%) (Auto) 0.5, Neutrophils # (Auto) 10.0H, Lymphocytes # (Auto) 0.8L, Monocytes # (Auto) 0.5, Eosinophils # (Auto) 0.0, Basophils # (Auto) 0.1, Nucleated Red Blood Cells % (auto) 0.0, Anion Gap 5L, Glomerular Filtration Rate > 60.0, Calcium Level 9.0, Total Bilirubin 1.3H, Direct Bilirubin 0.2, Aspartate Amino Transf (AST/SGOT) 54H, Alanine Aminotransferase (ALT/SGPT) 49, Alkaline Phosphatase 34L, Total Creatine Kinase 167, Creatine Kinase MB 4.8H, Creatine Kinase MB Relative Index 2.87, Troponin I < 0.02, AC-[place]-W-Type Natriuretic Peptide 6452H, Total Protein 5.8L, Albumin 3.0L, Albumin/Globulin Ratio 1.07 08/23/19 11:31: POC pH (Misc Panel) 7.446, POC Base Excess (Misc Panel) 11.0H, POC Saturated Percent O2 (Misc) 89L, POC pO2 (Misc Panel) 55.0L, POC pCO2 (Misc Panel) 50.3H, POC HCO3 (Misc Panel) 34.6H, POC Total CO2 (Misc Panel) 36.0H CBC/BMP Laboratory Tests 08/23/19 10:49 Home Medications Scheduled Fluticasone/Vilanterol (Breo Ellipta 200-25 Mcg INH) 1 Inh Inh, 1 PUFF INH DAILY Furosemide (Furosemide) 20 Mg Tablet, 20 MG PO DAILY Ipratropium/Albuterol Sulfate (Combivent Respimat 20-100 Mcg) 4 Gm Mist.inhal, 1 PUFF INH Q6H Levofloxacin (Levofloxacin) 500 Mg Tablet, 500 MG PO DAILY for 7 days patient on day 2 started 08/21/19 Potassium Chloride (Potassium Chloride) 10 Meq Capsule.er, 10 MEQ PO DAILY Prednisone (Prednisone) 10 Mg Tablet, 10 MG PO TAPER 4 tabs daily x3 days,3 tabs daily x3days,2 tabs daily x3 days, 1 tab daily x3 days. patient on day 2 of 12 day taper Tiotropium [place] (Spiriva) 18 Mcg Cap.w.dev, 1 INHALATION INH DAILY Allergies Coded Allergies: No Known Allergies (Unverified , 09/09/16) A-FIB/CHADSVASC A-FIB History Current/History of A-Fib/PAF?: No Current PO Anticoag Therapy: No GME ATTESTATION GME ATTESTATION My faculty preceptor for this patient encounter was physically present during the encounter and was fully available. All aspects of the patient interview, examination, medical decision making process, and medical care plan development were reviewed and approved by the faculty preceptor. The faculty preceptor is aware and concurs with the plan as stated in the body of this note and will attest to such by his/her cosignature. ATTENDING NOTE Patient was seen and examined by me this morning with the residents. Agree with the above assessment and plan CHEN STEWART DO Aug 23, 2019 19:11 DANISH RUBI MD Aug 26, 2019 12:53
[2019-08-23] MEDS ORDERED: IPRATROPIUM 0.5MG/ALBUTEROL 2.5MG INH SOL UD 3ML (DUONEB)(J7620) NEB PRN (19:15)
[2019-08-23] MEDS: SYMBICORT 160/4.5MCG INHALER 6GM INH SCH (20:24)
[2019-08-23 20:26] VITALS: O2SAT 96
--- NOTE | 2019-08-23 20:39 | ECGEPIP ---
[facility] - ED Test Date: 2019-08-23 Pat Name: ELANA LEON Department: Room: [facility] Gender: Male Systems Consultant: cleopatra : 1960 Requested By: Stevo Kuo Order Number: [id number] Reading MD: Baylee Syed Measurements Intervals [place] Rate: 100 P: 85 MN: 218 QRS: 158 QRSD: 96 T: -19 QT: 355 QTc: 460 Interpretive Statements SINUS TACHYCARDIA WITH FIRST DEGREE AV BLOCK MARKED RIGHT AXIS DEVIATION LOW QRS VOLTAGE IN EXTREMITY LEADS INCOMPLETE RIGHT BUNDLE BRANCH BLOCK ABNORMAL QRS-T ANGLE baseline artifact may affect interpretation SIMILAR 08/19/19 Electronically Signed on 08-23-2019 20:39:13 EDT by Baylee Syed
[2019-08-23 22:00] VITALS: BP 101/66
[2019-08-24 06:00] VITALS: BP 102/64
[2019-08-24] MEDS ORDERED: LevoFLOXacin 500 MG TABLET PO SCH (06:00)
[2019-08-24] MEDS: HEPARIN SOD (PORCINE) 5000 UNITS/ML VIAL (J1644 PER 1000UNITS) SQ SCH ×3 (06:06→21:34)
[2019-08-24 07:05] LABS: HEMATOCRIT 42.9 % (42.0-52.0); HEMOGLOBIN 14.1 g/dl (13.5-17.5); MEAN CORPUSCULAR HEMOGLOBIN 28.7 pg (27.0-33.0); MEAN CORPUSCULAR HGB CONC 32.9 g/dl (32.0-36.5); MEAN CORPUSCULAR VOLUME 87.4 fl (80.0-96.0); PLATELET COUNT, AUTOMATED 221 10^3/uL (150-450); RED BLOOD COUNT 4.91 10^6/uL (4.30-6.10); WHITE BLOOD COUNT 10.4 10^3/uL (4.0-10.0)
[2019-08-24 07:37] LABS: BLOOD UREA NITROGEN 22 MG/DL (7-18); CALCIUM LEVEL 8.6 MG/DL (8.5-10.1); CARBON DIOXIDE LEVEL 38 MEQ/L (21-32); CHLORIDE LEVEL 97 MEQ/L (98-107); CREATININE FOR GFR 0.88 MG/DL (0.70-1.30); GLOMERULAR FILTRATION RATE > 60.0 (>56); GLUCOSE, FASTING 95 MG/DL (70-100); POTASSIUM SERUM 3.1 MEQ/L (3.5-5.1); SODIUM LEVEL 139 MEQ/L (136-145)
[2019-08-24] MEDS: TIOTROPIUM INHALER/CAPSULE (SPIRIVA) INH SCH (07:51)
[2019-08-24] MEDS: SYMBICORT 160/4.5MCG INHALER 6GM INH SCH (07:51)
[2019-08-24] MEDS: MIDODRINE 5 MG TAB PO SCH ×3 (08:00→16:00)
[2019-08-24] MEDS: FUROSEMIDE 40 MG/4 ML VIAL (J1940) IV SCH (08:32)
[2019-08-24] MEDS ORDERED: POTASSIUM CHLORIDE 10 MEQ SR TABLET PO ONE ×2 (09:00→17:00)
--- NOTE | 2019-08-24 10:50 | ECGEPIP ---
[facility] Test Date: 2019-08-24 Pat Name: ELANA LEON Department: Room: [place] [address] Gender: Male Medical Device Sales: RF : 1960 Requested By: CHEN STEWART Order Number: [id number] Reading MD: Jaclyn Guerra Measurements Intervals [place] Rate: 133 P: [place]: 0 QRS: 155 QRSD: 96 T: 36 QT: 312 QTc: 466 Interpretive Statements POSSIBLE SINUS TACH 1ST DEGREE BLOCK WITH SUPERIMPOSED P ON T RATE FASTER PATTERN CONSISTENT WITH PULMONARY DISEASE INCOMPLETE RIGHT BUNDLE BRANCH BLOCK POSSIBLE LPHB BORDERLINE RT AXIS SEPTAL MYOCARDIAL INFARCTION, NEW ABSENCE R WAVE V2 LOW VOLTAGE LIMB LEADS C/W 08/23/19 Electronically Signed on 08-24-2019 10:50:00 EDT by Jaclyn Guerra
[2019-08-24] MEDS ORDERED: METOPROLOL TART 12.5 MG PER 1/2 TAB PO ONE (11:15)
[2019-08-24 11:40] VITALS: BP 88/44
[2019-08-24 12:00] VITALS: BP 88/44
[2019-08-24 14:00] VITALS: BP 89/62
--- NOTE | 2019-08-24 15:37 | IPNPDOC ---
Date Seen The patient was seen on 08/24/19. Progress Note SUBJECTIVE: Patient was seen and examined this morning. He has diuresed significantly overnight. This morning he has become tachycardic. An EKG revealed multifocal atrial tachycardia. He currently has no complaints. He states that his breathing is about the same to slightly better. He has been reported to have soft blood pressures through out the day. He currently denies any chest pain or increased shortness of breath OBJECTIVE PHYSICAL EXAMINATION: VITAL SIGNS: Please see below. GENERAL APPEARANCE: Patient is awake, alert, and oriented. Appears in no acute distress. Sitting up comfortably in bed HEENT: Atraumatic normocephalic. Eyes are nonicteric. trachea is midline. NC is in place CARDIOVASCULAR: Normal S1, S2. Tachycardic rate. Regular rhythm. No clicks, rubs, or murmurs LUNGS: Diminished lung sounds throughout. No wheezes, rhonchi or rales. No dullness to percussion. retractions ABDOMEN: Soft, nondistended. Nontender. No rebound tenderness or guarding. Normoactive bowel sounds throughout. Improvement in sacral edema MUSCULOSKELETAL: 5/5 upper and lower extremity muscle strength EXTREMITIES: Continued 3+ pitting edema in bilateral lower extremities. Full and equal pulses in bilateral upper and lower extremities NEUROLOGICAL: No focal neurological deficits PSYCHIATRIC: Mood and affect appear appropriate LABORATORY DATA, IMAGING STUDIES, MICROBIOLOGY: Please see below. DVT prophylaxis ordered?: YES ASSESSMENT AND PLAN: Patient is a 59 year old male presenting with shortness of breath. He was recently discharged for possible COPD and CHF exacerbation. His recent echocardiogram demonstrated severe pulmonary hypertension with a predicted pulmonary artery pressure of 74mmhg. Patient was admitted for cor pulmonale with right ventricular overload PROBLEMS: 1. Group 3 Severe Pulmonary Hypertension -Patient has severe pulmonary hypertension likely secondary to his lung disease. He likely has RV overload contributing to his lower extremity edema. He has received lasix and has diuresed 3L overnight. The patient remains fluid overloaded. -Given the patients Severe pulmonary hypertension he will need continued diuresis. This has been complicated by low blood pressures. Will change lasix dosing to 40mg daily. -Will continue Midodrine to be given if SBP < 80. 2. Multifocal Atrial Tachycardia -Patient became tachycardic today with a HR in the 130's. He remained stable and relatively asymptomatic. An EKG was obtained which demonstrated multifocal atrial tachycardia. This is likely secondary to his lung disease and pulmonary arterial hypertension. -Have considered adding metoprolol 12.5 mg however patient has become hypotensive. Will hold beta blockers at this time. If patient becomes tachycardic with a rate > 130 will add metoprolol 12.5 mg 3. COPD with chronic oxygen dependent respiratory failure -Patient is currently stable and at baseline oxygen requirement of 2L -Will continue on patients home inhalers. Breo Ellipta not on hospital formulary will substitute with Symbicort -Have discontinued albuterol nebs given patients tachycardia 3. DVT prophylaxis -Heparin SQ VS, I&O, 24H, Fishbone Vital Signs/I&O Vital Signs Date Time Temp Pulse Resp B/P (MAP) Pulse Ox O2 Delivery O2 Flow Rate FiO2 08/24/19 14:00 98.6 121 19 89/62 (71) 95 Nasal Cannula 2.0 I&O- Last 24 Hours up to 6 AM 08/24/19 06:00 Intake Total 620 ml Output Total 4160 ml Balance -3540 ml Laboratory Data 24H LABS Laboratory Tests 2 08/24/19 06:26: Nucleated Red Blood Cells % (auto) 0.0, Anion Gap 4L, Glomerular Filtration Rate > 60.0, Calcium Level 8.6, Magnesium Level 2.0 CBC/BMP Laboratory Tests 08/24/19 06:26 GME ATTESTATION GME ATTESTATION My faculty preceptor for this patient encounter was physically present during the encounter and was fully available. All aspects of the patient interview, examination, medical decision making process, and medical care plan development were reviewed and approved by the faculty preceptor. The faculty preceptor is aware and concurs with the plan as stated in the body of this note and will attest to such by his/her cosignature. ATTENDING NOTE Patient was seen and examined by me this morning with the residents. Agree with the above assessment and plan CHEN STEWART DO Aug 24, 2019 15:37 DANISH RUBI MD Aug 26, 2019 12:57
[2019-08-24] MEDS ORDERED: predniSONE 20 MG TAB PO ONE (19:00)
[2019-08-24] MEDS ORDERED: METOPROLOL TART 12.5 MG PER 1/2 TAB PO SCH (21:00)
[2019-08-24 22:00] VITALS: BP 91/64
[2019-08-25] MEDS: HEPARIN SOD (PORCINE) 5000 UNITS/ML VIAL (J1644 PER 1000UNITS) SQ SCH ×3 (05:41→20:51)
[2019-08-25 06:00] VITALS: BP 92/69
[2019-08-25 06:29] LABS: BLOOD UREA NITROGEN 19 MG/DL (7-18); CALCIUM LEVEL 8.2 MG/DL (8.5-10.1); CARBON DIOXIDE LEVEL 38 MEQ/L (21-32); CHLORIDE LEVEL 101 MEQ/L (98-107); CREATININE FOR GFR 0.62 MG/DL (0.70-1.30); GLOMERULAR FILTRATION RATE > 60.0 (>56); GLUCOSE, FASTING 97 MG/DL (70-100); POTASSIUM SERUM 4.5 MEQ/L (3.5-5.1); SODIUM LEVEL 141 MEQ/L (136-145)
[2019-08-25] MEDS: SYMBICORT 160/4.5MCG INHALER 6GM INH SCH ×2 (07:21→18:29)
[2019-08-25] MEDS: TIOTROPIUM INHALER/CAPSULE (SPIRIVA) INH SCH (07:21)
[2019-08-25] MEDS: MIDODRINE 5 MG TAB PO SCH ×3 (08:00→15:42)
[2019-08-25] MEDS: FUROSEMIDE 40 MG/4 ML VIAL (J1940) IV SCH (08:45)
[2019-08-25] MEDS ORDERED: predniSONE 20 MG TAB PO SCH (09:00)
--- NOTE | 2019-08-25 10:53 | NOCOX ---
DATE OF PROCEDURE: 08/23/2019 INTERPRETATION: Nocturnal oximetry was performed on 2 liters. A total of 6 hours and 40 minutes of data was reviewed. Mean oxygen saturation was 97% with a machine listed jaren of 82%, that may have been artifactual. He spent 99.7% of his time with saturations equal to or greater than 90%. There are minimal fluctuations in the SPO2 waveform. IMPRESSION: 1. Acceptable nocturnal oxygenation on 2 liters of oxygen by nasal cannula. 2. Minimal fluctuations in the SPO2 waveform. GUNNAR
--- NOTE | 2019-08-25 13:41 | IPNPDOC ---
Date Seen The patient was seen on 08/25/19. Progress Note SUBJECTIVE: Patient was seen and examined this morning. He did have increased shortness of breath last evening as well as soft blood pressures. Prednisone 20mg was added to his medications as it was felt that he had a degree of adrenal insufficiency. Today the patient states that he is feeling well. He states that his breathing has improved. He continues to diuresis and remains net negative. H e remains tachycardic however is at his baseline. Patient is working with physical therapy however he is unable to walk up stairs due to his shortness of breath and tachycardia OBJECTIVE PHYSICAL EXAMINATION: VITAL SIGNS: Please see below. GENERAL: Awake, alert, and oriented. Lying comfortably in bed. Appears in no acute distress HEENT: Atraumatic, normocephalic. Eyes are nonicteric. trachea is midline CARDIOVASCULAR: Normal S1, S2. Tachycardic rate. Regular rhythm. No clicks rubs or murmurs. Distant heart sounds RESPIRATORY: Slight expiratory wheezing. Decreased breath sounds throughout. Supraclavicular and intercostal retractions not changed from baseline ABDOMINAL: Soft, nondistended. Nontender. No rebound tenderness or guarding. Normoactive bowel sounds throughout EXTREMITIES: 3-4+ pitting edema in bilateral lower extremities. Significant improvment in sacral edema. Full and equal pulses in bilateral upper and lower extremities NEUROLOGICAL: No focal neurological deficits PSYCHOLOGICAL: Mood and affect appear appropriate LABORATORY DATA, IMAGING STUDIES, MICROBIOLOGY: Please see below. DVT prophylaxis ordered?: YES ASSESSMENT AND PLAN: Patient is a 59 year old male presenting with shortness of breath. He was recently discharged for possible COPD and CHF exacerbation. His recent echocardiogram demonstrated severe pulmonary hypertension with a predicted pulmonary artery pressure of 74mmhg. Patient was admitted for cor pulmonale with right ventricular overload PROBLEMS: 1. Group 3 Severe Pulmonary Hypertension -Patient has severe pulmonary hypertension likely secondary to his lung disease. He likely has RV overload contributing to his lower extremity edema. He has received lasix. Dose has been decreased to 40mg IV daily due to hypotension. He has diuresed a total of ~5L since admission. Will continue with 40mg daily -Will continue patient on Lasix 40mg daily. Anticipate transition to oral furosemide with possible D/C within 24-48 hours pending clinical improvement -Will continue Midodrine to be given if SBP < 80. 2. Multifocal Atrial Tachycardia -Patient became tachycardic previously with a HR in the 130's. He remained stable and relatively asymptomatic. An EKG was obtained which demonstrated multifocal atrial tachycardia. This is likely secondary to his lung disease and pulmonary arterial hypertension. -Patient has remained rate controlled without any additional medications. Will continue to monitor HR 3. Hypotension likely multifactorial to Severe Pulmonary Hypertension with RV overload and adrenal insufficiency -Patient was hypotensive yesterday. This is likely secondary to his RV overload from his severe pulmonary hypertension. The patient has received lasix and appears to be improving. Patient was given 20 mg PO prednisone today and this morning for possible adrenal insufficiency. His BP has responded appropriat orin. Will decrease prednisone to 10mg PO daily and continue in outpatient setting upon discharge 4. COPD with chronic oxygen dependent respiratory failure -Patient is currently stable and at baseline oxygen requirement of 2L -Will continue on patients home inhalers. Breo Ellipta not on hospital formulary will substitute with Symbicort -Have discontinued albuterol nebs given patients tachycardia -Patient had complained of worsening shortness of breath yesterday evening which has improved today. There is currently no signs of COPD exacerbation. He has COPD with emphysema. The patient was started on 20mg PO prednisone yesterday. This will be decreased to 10mg Prednisone and continued as an outpatient at discharge 5. DVT prophylaxis -Heparin SQ DISPOSITION: Patient will continue with diuresis. Likely discharge in 24-48 hours pending clinical improvement. Patient is working with PT/OT however is currently unable to do stairs VS, I&O, 24H, Fishbone Vital Signs/I&O Vital Signs Date Time Temp Pulse Resp B/P (MAP) Pulse Ox O2 Delivery O2 Flow Rate FiO2 08/25/19 06:00 97.9 96 16 92/69 (77) 98 Nasal Cannula 2.0 I&O- Last 24 Hours up to 6 AM 08/25/19 06:00 Intake Total 1080 ml Output Total 2925 ml Balance -1845 ml Laboratory Data 24H LABS Laboratory Tests 2 08/25/19 05:46: Anion Gap 2L, Glomerular Filtration Rate > 60.0, Calcium Level 8.2L CBC/BMP Laboratory Tests 08/25/19 05:46 GME ATTESTATION GME ATTESTATION My faculty preceptor for this patient encounter was physically present during the encounter and was fully available. All aspects of the patient interview, exa mination, medical decision making process, and medical care plan development were reviewed and approved by the faculty preceptor. The faculty preceptor is aware and concurs with the plan as stated in the body of this note and will attest to such by his/her cosignature. ATTENDING NOTE Patient was seen and examined by me this morning with the residents. Agree with the above assessment and plan CHEN STEWART DO Aug 25, 2019 13:41 DANISH RUBI MD Aug 26, 2019 13:12
[2019-08-25 14:00] VITALS: BP 88/54
[2019-08-25 20:00] VITALS: BP 90/63
[2019-08-25 22:00] VITALS: BP 90/63
[2019-08-26 06:00] VITALS: BP 96/69
[2019-08-26] MEDS: HEPARIN SOD (PORCINE) 5000 UNITS/ML VIAL (J1644 PER 1000UNITS) SQ SCH ×3 (06:07→21:23)
[2019-08-26 06:29] LABS: HEMATOCRIT 41.1 % (42.0-52.0); HEMOGLOBIN 13.3 g/dl (13.5-17.5); MEAN CORPUSCULAR HEMOGLOBIN 29.2 pg (27.0-33.0); MEAN CORPUSCULAR HGB CONC 32.4 g/dl (32.0-36.5); MEAN CORPUSCULAR VOLUME 90.1 fl (80.0-96.0); PLATELET COUNT, AUTOMATED 213 10^3/uL (150-450); RED BLOOD COUNT 4.56 10^6/uL (4.30-6.10); WHITE BLOOD COUNT 8.6 10^3/uL (4.0-10.0)
[2019-08-26 06:54] LABS: BLOOD UREA NITROGEN 16 MG/DL (7-18); CALCIUM LEVEL 8.8 MG/DL (8.5-10.1); CARBON DIOXIDE LEVEL 42 MEQ/L (21-32); CHLORIDE LEVEL 98 MEQ/L (98-107); CREATININE FOR GFR 0.69 MG/DL (0.70-1.30); GLOMERULAR FILTRATION RATE > 60.0 (>56); GLUCOSE, FASTING 82 MG/DL (70-100); SODIUM LEVEL 141 MEQ/L (136-145)
[2019-08-26] MEDS: SYMBICORT 160/4.5MCG INHALER 6GM INH SCH ×2 (07:22→18:20)
[2019-08-26] MEDS: TIOTROPIUM INHALER/CAPSULE (SPIRIVA) INH SCH (07:22)
[2019-08-26] MEDS: MIDODRINE 5 MG TAB PO SCH ×3 (08:00→16:00)
[2019-08-26] MEDS: predniSONE 10 MG TAB PO SCH (08:57)
[2019-08-26] MEDS: FUROSEMIDE 40 MG/4 ML VIAL (J1940) IV SCH (08:57)
[2019-08-26 12:04] VITALS: BP 93/68
--- NOTE | 2019-08-26 14:20 | IPNPDOC ---
Date Seen The patient was seen on 08/26/19. Progress Note SUBJECTIVE: Patient was seen and examined this morning. He currently states that he feels well. He denies any worsening shortness of breath. He states that he feels much better then when he was first admitted. He has been working with physical therapy. There have been no adverse effects reported overnight. OBJECTIVE PHYSICAL EXAMINATION: VITAL SIGNS: Please see below. GENERAL: Awake, alert, and oriented. Sitting up comfortably in bed. Appears in no acute distress. HEENT: Atraumatic, normocephalic. Eyes are nonicteric. trachea is midline. CARDIOVASCULAR: Distant heart sounds. Normal S1, S2. Tachycardic rate. Regular rhythm No clicks rubs or murmurs RESPIRATORY: Expiratory wheezing. Decreased breath sounds throughout. Supraclavicular and intercostal retractions ABDOMINAL: Soft, nondistended. No rebound tenderness or guarding. Normoactive bowel sounds throughout EXTREMITIES: 2-3+ pitting edema in bilateral lower extremities. Sacral edema is improving. Full and equal pulses in bilateral upper and lower extremities NEUROLOGICAL: No focal neurological deficits PSYCHOLOGICAL: Mood and affect appear appropriate LABORATORY DATA, IMAGING STUDIES, MICROBIOLOGY: Please see below. DVT prophylaxis ordered?: YES ASSESSMENT AND PLAN: Patient is a 59 year old male presenting with shortness of breath. He was recently discharged for possible COPD and CHF exacerbation. His recent echocardiogram demonstrated severe pulmonary hypertension with a predicted pulmonary artery pressure of 74mmhg. Patient was admitted for cor pulmonale with right ventricular overload PROBLEMS: 1. Group 3 Severe Pulmonary Hypertension -Patient has severe pulmonary hypertension likely secondary to his lung disease. He likely has RV overload contributing to his lower extremity edema. He has received lasix. Dose has been decreased to 40mg IV daily due to hypotension. He has diuresed a total of ~6-7L since admission. -Will change to 20mg IV lasix today. Patient is pending discharge tomorrow. Will start 40mg PO lasix as an outpatient -Will continue Midodrine to be given if SBP < 80. -Patient has cleared Physical therapy. D/C tomorrow with follow-up with Cardiology and PCP 2. Multifocal Atrial Tachycardia -Patient became tachycardic previously with a HR in the 130's. He remained stable and relatively asymptomatic. An EKG was obtained which demonstrated multifocal atrial tachycardia. This is likely secondary to his lung disease and pulmonary arterial hypertension. -Patient has remained rate controlled without any additional medications. Will continue to monitor HR 3. Hypotension likely multifactorial to Severe Pulmonary Hypertension with RV overload and adrenal insufficiency -Patient remains hypotensive although improved from previously. Will continue with 10mg prednisone 4. COPD with chronic oxygen dependent respiratory failure -Patient is currently stable and at baseline oxygen requirement of 2L -Will continue on patients home inhalers. Breo Ellipta not on hospital formulary will substitute with Symbicort -Patients COPD appears stable. Will continue 10mg Prednisone 5. DVT prophylaxis -Heparin SQ DISPOSITION: Patient will be discharged tomorrow. He has cleared PT/OT VS, I&O, 24H, Fishbone Vital Signs/I&O Vital Signs Date Time Temp Pulse Resp B/P (MAP) Pulse Ox O2 Delivery O2 Flow Rate FiO2 08/26/19 12:04 105 93/68 (76) 08/26/19 07:30 2.0 08/26/19 06:00 98.4 18 98 Nasal Cannula I&O- Last 24 Hours up to 6 AM 08/26/19 06:00 Intake Total 840 ml Output Total 2600 ml Balance -1760 ml Laboratory Data 24H LABS Laboratory Tests 2 08/26/19 06:01: Nucleated Red Blood Cells % (auto) 0.0, Anion Gap 1L, Glomerular Filtration Rate > 60.0, Calcium Level 8.8 CBC/BMP Laboratory Tests 08/26/19 06:01 GME ATTESTATION GME ATTESTATION My faculty preceptor for this patient encounter was physically present during the encounter and was fully available. All aspects of the patient interview, examination, medical decision making process, and medical care plan development were reviewed and approved by the faculty preceptor. The faculty preceptor is aware and concurs with the plan as stated in the body of this note and will attest to such by his/her cosignature. ATTENDING NOTE Patient was seen and examined by me this morning with the residents. Agree with the above assessment and plan CHEN STEWART DO Aug 26, 2019 14:20 DANISH RUBI MD Aug 27, 2019 08:45
[2019-08-26 16:00] VITALS: BP 92/66
[2019-08-26 22:00] VITALS: BP 95/68
[2019-08-27 06:00] VITALS: BP 95/69
[2019-08-27] MEDS: HEPARIN SOD (PORCINE) 5000 UNITS/ML VIAL (J1644 PER 1000UNITS) SQ SCH (06:04)
[2019-08-27 07:13] LABS: BLOOD UREA NITROGEN 19 MG/DL (7-18); CALCIUM LEVEL 8.5 MG/DL (8.5-10.1); CARBON DIOXIDE LEVEL 39 MEQ/L (21-32); CHLORIDE LEVEL 99 MEQ/L (98-107); GLOMERULAR FILTRATION RATE > 60.0 (>56); GLUCOSE, FASTING 75 MG/DL (70-100); POTASSIUM SERUM 3.8 MEQ/L (3.5-5.1); SODIUM LEVEL 139 MEQ/L (136-145)
[2019-08-27] MEDS ORDERED: FURO40TA2 PO (07:25)
[2019-08-27] MEDS ORDERED: PRED10TA2 PO (07:25)
[2019-08-27] MEDS: TIOTROPIUM INHALER/CAPSULE (SPIRIVA) INH SCH (07:47)
[2019-08-27] MEDS: SYMBICORT 160/4.5MCG INHALER 6GM INH SCH (07:47)
[2019-08-27] MEDS: MIDODRINE 5 MG TAB PO SCH (07:53)
[2019-08-27] MEDS ORDERED: FUROSEMIDE 20 MG/2 ML VIAL (J1940) IV SCH (09:00)
[2019-08-27] MEDS ORDERED: LEVA45AE INH (09:07)
[2019-08-27] MEDS: predniSONE 10 MG TAB PO SCH (09:53)
--- NOTE | 2019-08-27 12:46 | DS.PDOC ---
Discharge Summary General Date of Admission Aug 23, 2019 at 10:21 Date of Discharge 08/27/2019 Primary Care Physician: EAGLE IRAHETA MD Attending Physician: DANISH RUBI MD Discharge Summary PROCEDURES PERFORMED DURING STAY: [None]. ADMITTING DIAGNOSES: 1. Severe Pulmonary Hypertension with RV overload 2. COPD with chronic oxygen dependent respiratory failure DISCHARGE DIAGNOSES: 1. Severe Pulmonary Hypertension with RV overload 2. COPD with chronic oxygen dependent respiratory failure COMPLICATIONS/CHIEF COMPLAINT: Chronic Respiratory Failure With Hypoxia,. HISTORY OF PRESENT ILLNESS: Patient is a 59 year old male who presented to the [facility] with complaint of worsening shortness of breath over the past couple of days. The patient was recently hospitalized at [facility] for shortness of breath which was felt to be secondary to a combination of COPD and CHF exacerbation. During his hospitalization he had received IV lasix. Patient had stated that he had felt somewhat better. An Echocardiogram was ordered during his previous hospitalization which demonstrated severe elevation of right ventricular systolic pressure of at least 74mmHg. Patient stated that at the time of his discharge he was feeling ok however the next day he had noticed increased swelling his legs, thighs, and abdomen as well as difficulty breathing. HOSPITAL COURSE: On admission to the hospital the patient was placed on IV lasix 40mg BID. It was felt that his difficulty breathing was secondary his severe pulmonary hypertension with right ventricular overload. The patient was continued with diuresis. His antibiotics were discontinued as a current COPD exacerbation was unlikely. The patient was noted to be slightly hypotensive and his prednisone dose was increased to 20mg PO. The patient was noted to be fairly tachycardic during his hospitalization. An EKG demonstrated multifocal atrial tachycardia. The patients albuterol was discontinued at the time. The patient remained net negative and had diuresed approximately 6-7L during his hospitalization. The patient stated that he felt much better. The patient was cleared by physical therapy and he was discharged home. On discharge the patient was placed on 40mg PO Lasix. He was to continue his Breo Ellipta and Spiriva. His rescue inhaler was changed to Xopenex. DISCHARGE MEDICATIONS: Please see below. ALLERGIES: Please see below. PHYSICAL EXAMINATION ON DISCHARGE: VITAL SIGNS: Please see below. GENERAL: Awake, alert, and oriented. Appears in no acute distress. Sitting up comfortably in bed. HEENT: Atraumatic, normocephalic. eyes are nonicteric. trachea is midline NECK: No palpable cervical, axillary, or supraclavicular lymphadenopathy CARDIOVASCULAR EXAMINATION: Tachycardic rate. Regular rhythm. No clicks rubs or murmurs RESPIRATORY EXAMINATION: Decreased breath sounds with prolonged expiratory phase. No wheezes, rhonchi, or rales. Good respiratory effort. ABDOMINAL EXAMINATION: Soft, nondistended. Nontender. No rebound tenderness or guarding. Normoactive bowel sounds. No sacral or abdominal edema EXTREMITIES: 2+ pitting edema bilaterally with significant improvement since admission. Full and equal pulses in bilateral upper and lower extremities SKIN: No rashes or lesions NEUROLOGICAL EXAMINATION: No focal neurological deficits PSYCHIATRIC EXAMINATION: Mood and affect appear appropriate LABORATORY DATA: Please see below. IMAGING: No chest, 10:39 a.m., single AP view with the patient sitting: Comparison is 08/19/2019. Lung pereira again appear hyperinflated with bullous changes, unchanged. There is a parenchymal scar superiorly in the right lung, unchanged. There is effacement right costophrenic angle, unchanged, possibly a small right pleural effusion. Cardiac size appears enlarged, unchanged. The ryan, mediastinum, skeletal structures are unchanged. Impression: There is no interval change. Electronically Signed by Mac Velasquez MD 08/23/2019 10:48 A ECHOCARDIOGRAM FROM 08/20/2019 ADMISSION DATE OF PROCEDURE: 08/20/2019 REFERRING PHYSICIAN: Dr. Vane Silva INDICATION: Dyspnea. HEIGHT: 168 cm WEIGHT: 68 kg 2D MEASUREMENTS: Ventricular septum: 0.99 cm Posterior wall: 0.87 cm Left ventricle diastole: 3.5 cm Aortic root: 2.7 cm Left atrium: 2.8 cm Left atrial volume index: 19 Inferior vena cava: 2.7 cm with marked reduction of respiratory variation. DOPPLER MEASUREMENTS: No aortic regurgitation. No aortic stenosis. Very mild mitral regurgitation. No mitral stenosis. Severe tricuspid regurgitation. Estimated right ventricle systolic pressure: At least 74 mmHg assuming a pressure of at least 20 mmHg. No pulmonic regurgitation. MITRAL ANNULAR TISSUE DOPPLER: E prime lateral: 13.5 cm/s E prime septal: 10.1 cm/s DESCRIPTION: Rhythm was sinus tachycardia. Image quality was fair. No pericardial effusion. This was a 2D, M-mode, color flow Doppler and pulse wave Doppler examination and included mitral annular tissue Doppler. CONCLUSIONS: 1. Suggestive of severe elevation of estimated right ventricle systolic pressure (at least 74 mmHg). Moderate right ventricle dilatation by visual assessment. Right ventricle hypertrophy with prominent moderator band and trabeculations of the right ventricle. At least moderate reduction in overall right ventricle contraction performance. Partial flattening of the ventricular septum in both systole and diastole in keeping with both pressure and volume overload of the right ventricle. Structurally normal appearing tricuspid leaflets. Severe tricuspid regurgitation. Systolic flow reversal in the hepatic veins consistent with severe tricuspid regurgitation. Severe right atrial dilatation by visual assessment. Inferior vena cava plethora with marked reduction of respiratory variation suggestive of elevated central venous pressure of at least 20 mmHg. 2. Normal left ventricle internal dimensions and wall thickness. Normal regional left ventricular (LV) wall motion and wall thickening. Normal LV systolic function. Left ventricular ejection fraction (LVEF) 70% by visual estimate. Normal LV diastolic function. 3. Mild aortic valve sclerosis of a 3-cusp aortic valve. No aortic regurgitation. 4. Otherwise normal appearing echocardiogram Doppler findings. PROGNOSIS: Fair ACTIVITY: [As tolerated]. DIET: Low Sodium Diet with 1800ml fluid restriction DISCHARGE PLAN: Patient is to be discharged home. He is to continue a 1800ml fluid restriction and low sodium diet. He is to continue 40mg PO lasix daily. He is to continue Breo Ellipta and Spiriva. He is to discontinue Combivent and start Xopenx PRN due to tachycardia. Patient is to follow-up with his PCP in 7- 10 days. He is to establish with Cardiology for management of his Pulmonary Arterial Hypertension. He is to follow-up with Pulmonary Medicine for chronic management of his lung disease. Patient should have a repeat echocardiogram in 3-4 months to assess pulmonary artery pressure as he has been diuresed 6-7 liters. Patient is to continue 10mg PO prednisone daily DISPOSITION: 01 Home, Self-Care. DISCHARGE CONDITION: [Stable]. TIME SPENT ON DISCHARGE: Greater than 40 minutes. Vital Signs/I&Os Vital Signs Date Time Temp Pulse Resp B/P (MAP) Pulse Ox O2 Delivery O2 Flow Rate FiO2 08/27/19 07:10 2.0 08/27/19 06:00 96.9 95 18 95/69 (78) 97 Nasal Cannula I&O- Last 24 Hours up to 6 AM 08/27/19 05:59 Intake Total 690 ml Output Total 2100 ml Balance -1410 ml Laboratory Data Labs 24H Laboratory Tests 2 08/27/19 05:59: Anion Gap 1L, Glomerular Filtration Rate > 60.0, Calcium Level 8.5 CBC/BMP Laboratory Tests 08/27/19 05:59 Discharge Medications Scheduled Fluticasone/Vilanterol (Breo Ellipta 200-25 Mcg INH) 1 Inh Inh, 1 PUFF INH DAILY, (Reported) Furosemide (Furosemide) 40 Mg Tablet, 1 TAB PO DAILY Prednisone (Prednisone) 10 Mg Tablet, 10 MG PO DAILY Tiotropium [place] (Spiriva) 18 Mcg Cap.w.dev, 1 INHALATION INH DAILY, (Reported) Scheduled PRN Levalbuterol Tartrate (Levalbuterol Tartrate Hfa) 15 Gm Hfa.aer.ad, 2 PUFF INH Q4-6HP PRN for SHORTNESS OF BREATH Allergies Coded Allergies: No Known Allergies (Unverified , 09/09/16) GME ATTESTATION GME ATTESTATION My faculty preceptor for this patient encounter was physically present during the encounter and was fully available. All aspects of the patient interview, examination, medical decision making process, and medical care plan development were reviewed and approved by the faculty preceptor. The faculty preceptor is aw are and concurs with the plan as stated in the body of this note and will attest to such by his/her cosignature. ATTENDING NOTE Patient was seen and examined by me this morning with the residents. Agree with the above assessment and plan CHEN STEWART DO Aug 27, 2019 12:46 DANISH RUBI MD Aug 27, 2019 13:00
== END 2019-08-27 11:30 | disposition home or self-care (01) ==
LOC: M ED 10:20 → M ED INP 10:21 → ENRESERV 12:22 → M MSPAV 15:37
PROVIDERS: ADMIT Internal Medicine; ATTEND Internal Medicine
DX: I27.20 Pulmonary hypertension, unspecified (principal); I50.810 Right heart failure, unspecified; E87.70 Fluid overload, unspecified; J44.9 Chronic obstructive pulmonary disease, unspecified; J96.11 Chronic respiratory failure with hypoxia; Z99.81 Dependence on supplemental oxygen; R00.0 Tachycardia, unspecified; I95.9 Hypotension, unspecified; R60.0 Localized edema; E78.5 Hyperlipidemia, unspecified; Z87.09 Personal history of other diseases of the respiratory system; Z79.899 Other long term (current) drug therapy; Z79.52 Long term (current) use of systemic steroids; Z79.51 Long term (current) use of inhaled steroids; Z79.2 Long term (current) use of antibiotics; F17.210 Nicotine dependence, cigarettes, uncomplicated
CPT/HCPCS: 36415; 36600; 71045; 80048; 80076; 82550; 82553; 82803; 83735; 83880; 84484; 85025; 85027; 93005; 93041; 94640; 96372; 96374; 96376; 97116; 97161; 97530; 99285; J1644; J1940

== ENCOUNTER → 2019-09-09 | Outpatient (REF) | payer BC ==
[~2019-09-09] MED LIST changes: +FURO20TA2 PO; +FURO40TA2 PO; +LEVA45AE INH; +LEVO500T3 PO; +SPIR1CAP INH
[2019-09-09 14:01] LABS: BLOOD UREA NITROGEN 7 MG/DL (7-18); CARBON DIOXIDE LEVEL 32 MEQ/L (21-32); CHLORIDE LEVEL 88 MEQ/L (98-107); GLOMERULAR FILTRATION RATE > 60.0 (>56); GLUCOSE, FASTING 92 MG/DL (70-100); SODIUM LEVEL 130 MEQ/L (136-145)
== END ==
LOC: M SFHCPLAZ 11:44
PROVIDERS: ATTEND Family Medicine
DX: I27.20 Pulmonary hypertension, unspecified (principal)

== ENCOUNTER → 2019-09-20 | Outpatient (REF) | payer BC ==
[2019-09-20 14:32] LABS: BLOOD UREA NITROGEN 8 MG/DL (7-18); CALCIUM LEVEL 9.3 MG/DL (8.5-10.1); CARBON DIOXIDE LEVEL 36 MEQ/L (21-32); CHLORIDE LEVEL 89 MEQ/L (98-107); GLOMERULAR FILTRATION RATE > 60.0 (>56); GLUCOSE, FASTING 103 MG/DL (70-100); POTASSIUM SERUM 4.2 MEQ/L (3.5-5.1); SODIUM LEVEL 130 MEQ/L (136-145)
== END ==
LOC: M SFHCPLAZ 11:47
PROVIDERS: ATTEND Family Medicine
DX: E87.1 Hypo-osmolality and hyponatremia (principal)

== ENCOUNTER → 2019-12-07 | Outpatient (CLI) | payer BC ==
[~2019-12-07] MED LIST changes: +AMOX500T PO; +CLAR500T97 PO; +DOCU100C16 PO; +LEVAINH INH; +PANT40TA29 PO; +PEG1POW PO
--- NOTE | 2019-12-07 12:37 | REP ---
CT CHEST WITHOUT CONTRAST: HISTORY: Other nonspecific abnormal finding of the lung field. There are numerous prior comparison CT studies. The most recent is from August 19, 2019 and the most remote is from July 18, 2014. CT FINDINGS: There are advanced emphysematous changes throughout the upper lobes particularly right sided. A large right lower lobe bullous persists essentially unchanged from comparison study. There is stable pleuroparenchymal fibrosis in the right lower lobe posteromedially. There are band-like areas of fibrosis in the right upper lobe. There is a spiculated area of right upper lobe consolidation on today's study with air bronchograms, which is new when compared to the August 19, [address] Multiple [address] CT study show waxing and waning areas of similar parenchymal opacity. The current right upper lobe band of opacity measures 2.2 x 4.2 cm. No other new parenchymal consolidation is seen. No pleural effusion is seen. There is a small quantity of pericardial fluid. No hilar or mediastinal adenopathy. There is minimal vascular calcification. IMPRESSION: Evidence of COPD again noted. The current study shows a new band-like area of opacity in the right upper lobe and otherwise stable changes. Electronically Signed by Vitor Abebe MD 12/07/2019 12:44 P
== END ==
LOC: M RAD 07:59
PROVIDERS: ATTEND Internal Medicine Pulmonary Disease
DX: R91.8 Other nonspecific abnormal finding of lung field (principal)

== ENCOUNTER → 2020-01-19 | Outpatient (CLI) | payer BC ==
--- NOTE | 2020-03-10 12:42 | REP ---
CHEST X-RAY: 2-VIEWS COMPARISON: None. HISTORY: Extremely short of breath. Other nonspecific abnormal lung field finding. FINDINGS: The lungs are hyperinflated with flattening of the hemidiaphragms and an increase in the AP diameter of the chest. This indicates some degree of COPD. There is a band of linear fibrosis in the right upper lobe posteriorly. There are emphysematous changes in the upper lobes bilaterally. There is no evidence of pleural effusion. No focal infiltrate is seen. Cardiomegaly is observed. The cardiothoracic ratio measures 50.2%. No acute bony abnormality is seen. IMPRESSION: COPD with hyperinflation. Mild cardiac enlargement is also noted. Linear fibrosis is seen in the right upper lobe. No other renal calculus. No left hydronephrosis. MTDD
== END ==
LOC: M RAD 17:00
PROVIDERS: ATTEND Internal Medicine Pulmonary Disease
DX: J44.9 Chronic obstructive pulmonary disease, unspecified (principal)

== ENCOUNTER 2020-04-13 08:13 | Inpatient (IN) | payer BC ==
[2020-04-13] VITALS (16 sets, daily range): BP systolic 80–104; BP diastolic 50–67
[~2020-04-13] VITALS: Ht 170.2 cm; Wt 58.0 kg
[~2020-04-13 08:13] MED LIST changes: +ADVAIR HFA 230/21MCG INHALER INH SCH; -AMOX500T PO; -CLAR500T97 PO; -DOCU100C16 PO; -LEVAINH INH; -PANT40TA29 PO; -PEG1POW PO
[2020-04-13] MEDS ORDERED: NS 500 ML IV ONE (09:00)
[2020-04-13 09:06] LABS: BASO % 0.4 % (0.0-1.0); EOS % 0.1 % (0.0-3.0); HEMATOCRIT 25.2 % (42.0-52.0); HEMOGLOBIN 8.4 g/dl (13.5-17.5); LYMPH # 0.7 10^3/uL (1.5-5.0); LYMPH % 7.4 % (24.0-44.0); MEAN CORPUSCULAR HEMOGLOBIN 30.2 pg (27.0-33.0); MEAN CORPUSCULAR HGB CONC 33.3 g/dl (32.0-36.5); MEAN CORPUSCULAR VOLUME 90.6 fl (80.0-96.0); MONO # 0.4 10^3/uL (0.0-0.8); NEUTROPHILS # 7.7 10^3/uL (1.5-8.5); NEUTROPHILS % 86.4 % (36.0-66.0); PLATELET COUNT, AUTOMATED 125 10^3/uL (150-450); RED BLOOD COUNT 2.78 10^6/uL (4.30-6.10); WHITE BLOOD COUNT 8.9 10^3/uL (4.0-10.0)
--- NOTE | 2020-04-13 09:09 | REP ---
INDICATION: tingling. COMPARISON: None. TECHNIQUE: Helical scanning is acquired. 5 mm axial images were reformatted. Coronal MPR images were generated. FINDINGS: Bone window settings demonstrate an intact bony calvarium. There is no evidence of skull fracture or incidental bony calvarial lesion. The visualized paranasal sinuses appear clear. No intraorbital abnormality is seen. On soft tissue window setting images; the lateral, third, and fourth ventricles are normal in size and position. Al-white differentiation pattern is normal above and below the tentorium. There are is no evidence of intracranial hemorrhage. No mass, edema, infarction, or midline shift is seen. No extra-axial fluid collection is appreciated. There is minimal generalized volume loss. Vascular calcification is noted in the distal carotid arteries. IMPRESSION: Mild vascular calcification in generalized volume loss. No acute intracranial abnormality.. <Electronically signed by Claudio Abebe > 04/13/20 [id number]
--- NOTE | 2020-04-13 09:20 | REP ---
INDICATION: CVA. COMPARISON: January 19, 2020.. TECHNIQUE: Sitting AP view. FINDINGS: The lungs are markedly hyperinflated consistent with COPD as before. There is generalized oligemic throughout the right lung and some of the left upper lobe. Mild cardiomegaly is again observed. There is coarse parenchymal fibrosis in the right upper lobe unchanged. No new infiltrate is seen. Oxygen delivery tubing and EKG electrodes are seen. No acute bony abnormality. A skin fold is seen on the right overlying the right chest. IMPRESSION: Cardiomegaly and evidence of advanced COPD and emphysema. Fibrotic changes right upper lobe region. No new infiltrate. <Electronically signed by Claudio Abebe > 04/13/20 [id number]
[2020-04-13 09:30] LABS: VENOUS BASE EXCESS 6.3 (-2.0-2.0); VENOUS HCO3 31.3 MEQ/L (23.0-27.0); VENOUS PARTIAL PRESSURE CO2 47.9 mmHg (38.0-50.0); VENOUS PARTIAL PRESSURE O2 66.6 mmHg (30.0-50.0); VENOUS PH 7.433 UNITS (7.330-7.430); VENOUS STANDARD HCO3 30.1 MEQ/L; VENOUS TOTAL CO2 32.8 MEQ/L (24.0-28.0)
[2020-04-13 09:45] LABS: CK-MB VALUE MASS 3.8 NG/ML (<3.6); CPK CREATINE PHOSPHOKINASE 79 U/L (39-308); MB/CK RELATIVE INDEX 4.81 (< OR =4); TROPONIN I < 0.02 NG/ML (< 0.10)
[2020-04-13 09:56] LABS: INR 1.17; PROTHROMBIN TIME 15.2 SECONDS (12.5-14.3)
[2020-04-13 09:57] LABS: PARTIAL THROMBOPLASTIN TIME 28.4 SECONDS (24.2-38.5)
[2020-04-13] MEDS ORDERED: PANTOPRAZOLE 40MG VIAL (C9113 PER 1) IV ONE (10:00)
[2020-04-13] MEDS ORDERED: LEVAINH INH (10:45)
[2020-04-13] MEDS ORDERED: FURO40TA2 PO (10:45)
[2020-04-13] MEDS ORDERED: PRED10TA2 PO (10:45)
[2020-04-13] MEDS: NS 1,000 ML IV SCH (10:45)
--- NOTE | 2020-04-13 11:14 | HPEPDOC ---
[facility] Medical History & Physical Date of Admission Apr 13, 2020 Date of Service: Apr 13, 2020 History and Physical Chief complaint: She presented to the ER after he reported that he was feeling off and couldnt focus History of present illness: Patient is a [id number] with a PMHx of COPD (Chronic Hypoxia on 2L, Chronic steroid dependence), Pulmonary nodules, DLP, Severe pulmonary HTN who presented to the emergency room after feeling off/can focus. Upon arrival to ER, patient didnt have any specific complaints. Did report some tingling of both sides of his face. Patient reports that sometimes he experiences chest discomfort while doing nothing currently. He denies any pain. Patient reports shortness of breath that his experience majority of his life. Reports that it has worsened over the last 1 month. Patient denies any changes in his baseline cough. Reports that he cant lay flat on his back because of shortness of breath. Denies any fevers or chills. Denies any lightheadedness or dizziness. Patient denies any abdominal pain, nausea, vomiting, constipation or diarrhea. Patient reports his last bowel movement was yesterday reported a soft, black without any bright red blood. Patient denies any urinary discomfort. Patient has had an EGD and colonoscopy with Dr. 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 Review of Systems: [10 point review of systems complete, all negative otherwise stated in HPI] Physical exam: - Vitals: BP [84/54], HR [99], RR [24], Sat [100%NC2L], Temp [97.8F] - General: Lying in bed, No acute distress, Speaking in full sentences, AAOx3 - HEENT: NC, AT, PERRLA - CVS: RRR, +S1S2 - Lungs: Fair air entry bilaterally, No appreciable wheezing / rales / rhonchi - Abdomen: Soft, Non-distended, Non-tender - Extremities: Trace/1+ pitting edema bilaterally, No calf tenderness - Neuro: No focal motor or sensory deficit - Skin: No visible rashes Labs: See below Imaging: ECHO 08/20/2019: 1. Suggestive of severe elevation of estimated right ventricle systolic pressure (at least 74 mmHg). Moderate right ventricle dilatation by visual assessment. Right ventricle hypertrophy with prominent moderator band and trabeculations of the right ventricle. At least moderate reduction in overall right ventricle contraction performance. Partial flattening of the ventricular septum in both systole and diastole in keeping with both pressure and volume overload of the right ventricle. Structurally normal appearing tricuspid leaflets. Severe tricuspid regurgitation. Systolic flow reversal in the hepatic veins consistent with severe tricuspid regurgitation. Severe right atrial dilatation by visual assessment. Inferior vena cava plethora with marked reduction of respiratory variation suggestive of elevated central venous pressure of at least 20 mmHg. 2. Normal left ventricle internal dimensions and wall thickness. Normal regional left ventricular (LV) wall motion and wall thickening. Normal LV systolic function. Left ventricular ejection fraction (LVEF) 70% by visual estimate. Normal LV diastolic function. 3. Mild aortic valve sclerosis of a 3-cusp aortic valve. No aortic regurgitation. 4. Otherwise normal appearing echocardiogram Doppler findings. CXR 04/13/2020: Cardiomegaly and evidence of advanced COPD and emphysema. Fibrotic changes right upper lobe region. No new infiltrate. CT Head 04/13/2020: Mild vascular calcification in generalized volume loss. No acute intracranial abnormality.. EK/29: Reviewed and does not reveal any significant changes compared to prior EKG; No ischemic changes noted Assessment and Plan: Symptomatic anemia - likely 2/2 GI bleeding - possibly 2/2 upper GI source - Patient presented to the emergency room with nonspecific complaints - Had reported a history of dark stools and shortness of breath that has been progressive - Patients SBP is lower than baseline; Baseline SBP of 90s - Hg of 8.4; baseline of 13-14 - BUN / Cr; ratio suggesting upper GI bleeding - Will start Protonix IV - Will provide 3 units PRBC transfusion; will follow H&H [id number] thereafter - Consulted surgery; will likely go for EGD today; will COVID test per OR policy - Patient will remain NPO; will c/w IV fluid hydration - c/w Telemetry monitoring Thrombocytopenia - possibly 2/2 GI bleed - Will continue to follow H&H - Plan for EGD (See above) Lactic acid - likely 2/2 hypovolemia - Will provide 3 units PRBC transfusion - c/w IV fluid hydration Chronic COPD with Chronic Hypoxic Respiratory Failure - Patient uses oxygen via nasal cannula at 2L while at home - Physical without any wheezing - Patient is on chronic prednisone at 10 mg PO daily; will start solumedrol for now - c/w inhaled therapy as ordered - Follows with Dr. Cary as an outpatient Severe pulmonary HTN - Patient is on Furosemide 40 daily; will hold for now - Will continue to monitor for signs of fluid overload; may require IV Furosemide during transfusions Pulmonary nodules - Follows with Dr. Cary as an outpatient Gastrointestinal prophylaxis - Will start Protonix DVT prophylaxis - Will start TEDs/Sequentials Vital Signs Vital Signs Date Time Temp Pulse Resp B/P (MAP) Pulse Ox O2 Delivery O2 Flow Rate FiO2 04/13/20 09:22 99 24 100 Nasal Cannula 2.0 04/13/20 09:15 84/54 (64) 04/13/20 08:54 97 04/13/20 08:14 97.8 Laboratory Data Labs 24H Laboratory Tests 2 04/13/20 08:36: POC Troponin I (Misc) 0.00 04/13/20 08:38: POC Glucose (Misc Panel) 114H, POC Sodium (Misc Panel) 135L, POC Potassium (Misc Panel) 3.9, POC Chloride (Misc Panel) 89L, POC Total CO2 (Misc Panel) 35.0H, POC Blood Urea Nitrogen (Misc Panel 45H, POC Ionized Calcium (Misc Panel) 4.3L, POC Creatinine (Misc Panel) 0.6, POC Hematocrit (Misc Panel) 29.0L 04/13/20 08:48: Immature Granulocyte % (Auto) 1.7, Neutrophils (%) (Auto) 86.4H, Lymphocytes (%) (Auto) 7.4L, Monocytes (%) (Auto) 4.0, Eosinophils (%) (Auto) 0.1, Basophils (%) (Auto) 0.4, Neutrophils # (Auto) 7.7, Lymphocytes # (Auto) 0.7L, Monocytes # (Auto) 0.4, Eosinophils # (Auto) 0.0, Basophils # (Auto) 0.0, Nucleated Red Blood Cells % (auto) 0.0, Total Creatine Kinase 79, Creatine Kinase MB 3.8H, Creatine Kinase MB Relative Index 4.81H, Troponin I < 0.02 04/13/20 09:16: Prothrombin Time 15.2H, Prothromb Time International Ratio 1.17, Activated Partial Thromboplast Time 28.4, Blood Gas Bicarbonate Standard 30.1, Venous Blood pH 7.433H, Venous Blood Partial Pressure CO2 47.9, Venous Blood Partial Pressure O2 66.6H, Venous Blood Total Carbon Dioxide 32.8H, Venous Blood HCO3 31.3H, Venous Blood Oxygen Saturation 92.0H, Venous Blood Base Excess 6.3H 04/13/20 09:17: Lactic Acid Level 4.5*H 04/13/20 09:52: Urine Color STRAW, Urine Appearance CLEAR, Urine pH 7.0, Urine Specific [place] 1.006, Urine Protein NEGATIVE, Urine Glucose (UA) NEGATIVE, Urine Ketones NEGATIVE, Urine Blood NEGATIVE, Urine Nitrite NEGATIVE, Urine Bilirubin NEGATIVE, Urine Urobilinogen 0.2, Urine Leukocyte Esterase NEGATIVE, Urine WBC (Auto) 0, Urine RBC (Auto) 1, Urine Hyaline Casts (Auto) 0, Urine Bacteria (Auto) NEGATIVE, Urine Squamous Epithelial Cells 0, Urine Sperm (Auto) CBC/BMP Laboratory Tests 04/13/20 08:48 Microbiology Microbiology 04/13/20 Blood Culture, Received Pending 04/13/20 Blood Culture, Received Pending Home Medications Scheduled Fluticasone/Vilanterol (Breo Ellipta 200-25 Mcg INH) 1 Inh Inh, 1 PUFF INH DAILY Furosemide (Furosemide) 40 Mg Tablet, 40 MG PO DAILY Prednisone (Prednisone) 10 Mg Tablet, 10 MG PO DAILY Tiotropium [place] (Spiriva) 18 Mcg Cap.w.dev, 1 INHALATION INH DAILY Scheduled PRN Levalbuterol Hydrochloride (Xopenex Hfa) 15 Gm Hfa.aer.ad, 2 PUFF INH Q4H PRN for SHORTNESS OF BREATH Allergies Coded Allergies: No Known Allergies (Unverified , 09/09/16) THANIA DONNELLY MD Apr 13, 2020 11:14
[2020-04-13] MEDS ORDERED: LEVALBUTEROL 1.25 MG/0.5 ML CONCENTRATE NEB INH PRN (11:15)
[2020-04-13] MEDS: methylPREDNISolone 125MG 2ML VIAL IV SCH (12:29)
[2020-04-13 16:13] LABS: HEMATOCRIT 26.4 % (42.0-52.0); HEMOGLOBIN 8.8 g/dl (13.5-17.5)
[2020-04-13 16:42] LABS: CK-MB VALUE MASS 3.3 NG/ML (<3.6); CPK CREATINE PHOSPHOKINASE 50 U/L (39-308); TROPONIN I < 0.02 NG/ML (< 0.10)
[2020-04-13] MEDS: ADVAIR HFA 230/21MCG INHALER INH SCH (20:16)
[2020-04-13] MEDS: PANTOPRAZOLE 40MG VIAL (C9113 PER 1) IV SCH (21:07)
[2020-04-14] VITALS (12 sets, daily range): BP systolic 82–110; BP diastolic 56–68
[2020-04-14] MEDS: NS 1,000 ML IV SCH ×2 (00:43→06:53)
[2020-04-14 02:07] LABS: HEMATOCRIT 28.5 % (42.0-52.0); HEMOGLOBIN 9.5 g/dl (13.5-17.5)
[2020-04-14 02:37] LABS: CK-MB VALUE MASS 2.6 NG/ML (<3.6); CPK CREATINE PHOSPHOKINASE 49 U/L (39-308); MB/CK RELATIVE INDEX 5.31 (< OR =4); TROPONIN I < 0.02 NG/ML (< 0.10)
[2020-04-14 05:26] LABS: BASO # 0.1 10^3/uL (0.0-0.2); BASO % 0.7 % (0.0-1.0); EOS # 0.1 10^3/uL (0.0-0.5); EOS % 0.8 % (0.0-3.0); HEMATOCRIT 30.1 % (42.0-52.0); LYMPH # 1.2 10^3/uL (1.5-5.0); LYMPH % 16.2 % (24.0-44.0); MEAN CORPUSCULAR HGB CONC 33.2 g/dl (32.0-36.5); MEAN CORPUSCULAR VOLUME 90.4 fl (80.0-96.0); MONO # 0.7 10^3/uL (0.0-0.8); MONO % 9.8 % (0.0-5.0); NEUTROPHILS # 5.1 10^3/uL (1.5-8.5); NEUTROPHILS % 71.3 % (36.0-66.0); PLATELET COUNT, AUTOMATED 101 10^3/uL (150-450); RED BLOOD COUNT 3.33 10^6/uL (4.30-6.10); WHITE BLOOD COUNT 7.2 10^3/uL (4.0-10.0)
[2020-04-14 05:44] LABS: BLOOD UREA NITROGEN 20 MG/DL (7-18); CALCIUM LEVEL 8.3 MG/DL (8.5-10.1); CARBON DIOXIDE LEVEL 36 MEQ/L (21-32); CHLORIDE LEVEL 102 MEQ/L (98-107); CREATININE FOR GFR 0.43 MG/DL (0.70-1.30); GLOMERULAR FILTRATION RATE > 60.0 (>56); GLUCOSE, FASTING 92 MG/DL (70-100); MAGNESIUM LEVEL 1.6 MG/DL (1.8-2.4); POTASSIUM SERUM 3.4 MEQ/L (3.5-5.1); SODIUM LEVEL 142 MEQ/L (136-145)
--- NOTE | 2020-04-14 07:00 | ECGEPIP ---
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
[2020-04-14] MEDS: ADVAIR HFA 230/21MCG INHALER INH SCH ×2 (07:12→19:10)
[2020-04-14] MEDS: TIOTROPIUM INHALER/CAPSULE (SPIRIVA) INH SCH (07:12)
[2020-04-14] MEDS ORDERED: MAG SULF 1GM/100ML (MAG RUN) 1 GM in IV 1 EA IV ONE (07:30)
[2020-04-14] MEDS ORDERED: POTASSIUM CHLORIDE 10% LIQ 20 MEQ/15 ML UDC PO ONE (07:30)
[2020-04-14] MEDS ORDERED: FLUBLOK(EGG FREE)(QUAD)INFLUENZA VACC 0.5ML SYRINGE 18YRS & OLDER IM ONE (09:00)
[2020-04-14] MEDS: PANTOPRAZOLE 40MG VIAL (C9113 PER 1) IV SCH ×2 (10:00→21:06)
[2020-04-14] MEDS ORDERED: propofoL 200 MG/20 ML VIAL As Ordered ONE (12:19)
[2020-04-14] MEDS ORDERED: LIDOCAINE 2% 100MG/5ML SDV (FOR ANES.) As Ordered ONE (12:19)
[2020-04-14] MEDS ORDERED: fentaNYL 100 MCG/2 ML INJECTION (J3010) As Ordered ONE (12:21)
--- NOTE | 2020-04-14 12:26 | CR.PDOC ---
General Surgery Consultation Date of Consultation 04/14/20 History and Physical CONSULT REPORT FOR: hospitalist service REASON FOR CONSULTATION: anemia, possible upper GI bleed HISTORY OF PRESENT ILLNESS: Patient is currently admitted in the hospital for general complaints of weakness and was found to be anemic. He does report black stool about 1-1/2 days ago. He denies any abdominal pain or bloating. He has not had any prior endoscopies. He denies any prior history of urinary GI bleed or ulcers. He has had a prior colonoscopy about 4 years ago. He is taking prednisone for his COPD and is not on any medication for her ulcer protection. He suspected to have an upper GI bleed for which I was asked to perform an upper endoscopy. PAST MEDICAL HISTORY: 1. COPD. PAST SURGICAL HISTORY: INCLUDES: 1. Vasectomy 2. Colonoscopy in 2017. ALLERGIES: Please see below.. HOME MEDICATIONS: Please see below. REVIEW OF SYSTEMS: GENERAL: Denies any fevers chills, weight loss CARDIOVASCULAR: Denies any chest pain SKIN: [Denies rash]. NEUROLOGIC: [Denies headache, stroke and transient ischemic attack]. HEMATOLOGY/ONCOLOGY: [Denies bleeding or clotting disorder]. HEART: [Denies any chest pains, palpitations, paroxysmal dyspnea, orthopnea]. PULMONARY: Patient mainly maintained on oxygen, has been on prednisone for roughly more than a year for his COPD GASTROINTESTINAL: Colonoscopy in 2017. GENITOURINARY: [Denies dysuria, frequency, hematuria and nocturia]. ENDOCRINE: [Denies polydipsia, polyphagia, polyuria, heat or cold intolerance]. INFECTIOUS: [Denies any recent upper respiratory tract infection, UTI, need for use of antibiotics]. NUTRITION: [Reports good appetite]. PHYSICAL EXAMINATION: VITALS SIGNS: Please see below. GENERAL APPEARANCE: Patient seen laying on bed, appears very comfortable. SKIN: Warm and dry. HEENT: [Normocephalic, atraumatic. [place] palpebral conjunctiva, anicteric sclerae. Lips and mucosa appear moist]. [place] O2 via nasal cannula NECK: [Supple, no thyromegaly. No obvious jugular venous distention]. LUNGS: [Clear to auscultation bilaterally. No wheezing appreciated]. HEART: [No chest wall abnormalities. Regular rate and rhythm with no murmurs appreciated]. ABDOMEN: Abdomen is soft, nontender, nondistended ANCILLARIES: . LABORATORY DATA: Please see below. IMPRESSION AND PLAN: Anemia Suspected upper GI bleed Patient reports black stool about 2 days prior to presentation. His last hemoglobin and hematocrit is relatively normal a few months ago with a big drop to 8.4 and hematocrit of 25.2 on presentation and he seems to be having symptoms of weakness from this. He is not actively bleeding at the moment. We are being asked to perform an upper GI endoscopy. He'll be scheduled today. Consent has been obtained after thorough discussion of the risks and benefits of the procedure. Vital Signs Vital Signs Date Time Temp Pulse Resp B/P (MAP) Pulse Ox O2 Delivery O2 Flow Rate FiO2 04/14/20 08:00 98.0 93 17 92/59 (70) 97 Nasal Cannula 2.0 04/13/20 08:54 97 I&Os I&O- Last 24 Hours up to 6 AM 04/14/20 06:00 Intake Total 4245 ml Output Total 1275 ml Balance 2970 ml Laboratory Data Labs 24H Laboratory Tests 2 04/13/20 12:25: Coronavirus (COVID-19)(PCR) NEGATIVE 04/13/20 16:01: Lactic Acid Followup at 4 Hours 1.7, Total Creatine Kinase 50, Creatine Kinase MB 3.3, Creatine Kinase MB Relative Index 6.60H, Troponin I < 0.02 04/14/20 01:59: Total Creatine Kinase 49, Creatine Kinase MB 2.6, Creatine Kinase MB Relative Index 5.31H, Troponin I < 0.02 04/14/20 05:06: Immature Granulocyte % (Auto) 1.2, Neutrophils (%) (Auto) 71.3H, Lymphocytes (%) (Auto) 16.2L, Monocytes (%) (Auto) 9.8H, Eosinophils (%) (Auto) 0.8, Basophils (%) (Auto) 0.7, Neutrophils # (Auto) 5.1, Lymphocytes # (Auto) 1.2L, Monocytes # (Auto) 0.7, Eosinophils # (Auto) 0.1, Basophils # (Auto) 0.1, Nucleated Red Blood Cells % (auto) 0.0, Anion Gap 4L, Glomerular Filtration Rate > 60.0, Calcium Level 8.3L, Magnesium Level 1.6L 04/14/20 11:42: Lab Scanned Report Miscellaneous Lab CBC/BMP Laboratory Tests 04/13/20 16:01 04/14/20 01:59 04/14/20 05:06 Microbiology Microbiology 04/13/20 Blood Culture - Preliminary, Resulted No growth after 24 hours . All specim... 04/13/20 Blood Culture - Preliminary, Resulted No growth after 24 hours . All specim... Home Medications Scheduled Fluticasone/Vilanterol (Breo Ellipta 200-25 Mcg INH) 1 Inh Inh, 1 PUFF INH DAILY, (Reported) Furosemide (Furosemide) 40 Mg Tablet, 40 MG PO DAILY, (Reported) Prednisone (Prednisone) 10 Mg Tablet, 10 MG PO DAILY, (Reported) Tiotropium [place] (Spiriva) 18 Mcg Cap.w.dev, 1 INHALATION INH DAILY, (Reported) Scheduled PRN Levalbuterol Hydrochloride (Xopenex Hfa) 15 Gm Hfa.aer.ad, 2 PUFF INH Q4H PRN for SHORTNESS OF BREATH, (Reported) Allergies Coded Allergies: No Known Allergies (Unverified , 09/09/16) SHANTE MEJIA MD Apr 14, 2020 12:26
--- NOTE | 2020-04-14 13:02 | ROOR ---
Patient Name: Louis Ralph Procedure Date: 04/14/2020 12:40 PM Date of : 1960 Age: 59 Room: Main OR Gender: Male Note Status: Finalized Procedure: Upper GI endoscopy Indications: Acute post hemorrhagic anemia Providers: Phong Emerson MD Referring MD: 2. Inpatient 2. Inpatient Requesting Provider: Medicines: Monitored Anesthesia Care Complications: No immediate complications. Procedure: Pre-Anesthesia Assessment: - Prior to the procedure, a History and Physical was performed, and patient medications and allergies were reviewed. The patient is competent. The risks and benefits of the procedure and the sedation options and risks were discussed with the patient. All questions were answered and informed consent was obtained. Patient identification and proposed procedure were verified by the physician, the nurse and the anesthesiologist in the procedure room. Mental Status Examination: alert and oriented. Airway Examination: normal oropharyngeal airway and neck mobility. Respiratory Examination: clear to auscultation. CV Examination: normal. Prophylactic Antibiotics: The patient does not require prophylactic antibiotics. Prior Anticoagulants: The patient has taken no previous anticoagulant or antiplatelet agents. ASA Grade Assessment: III - A patient with severe systemic disease. After reviewing the risks and benefits, the patient was deemed in satisfactory condition to undergo the procedure. The anesthesia plan was to use monitored anesthesia care (MAC). Immediately prior to administration of medications, the patient was re-assessed for adequacy to receive sedatives. The heart rate, respiratory rate, oxygen saturations, blood pressure, adequacy of pulmonary ventilation, and response to care were monitored throughout the procedure. The physical status of the patient was re-assessed after the procedure. The Endoscope was introduced through the mouth, and advanced to the second part of duodenum. The upper GI endoscopy was accomplished without difficulty. The patient tolerated the procedure well. Findings: The middle third of the esophagus was mildly tortuous. no stigmata of recent bleed, esophagitis, varices Segmental mild inflammation characterized by erythema, granularity and aphthous ulcerations was found in the gastric fundus and in the gastric antrum. This was biopsied with a cold forceps for Helicobacter pylori testing. Estimated blood loss was minimal. Two non-bleeding superficial gastric ulcers with no stigmata of bleeding were found at the pylorus. The largest lesion was 5 mm in largest dimension. Patchy mildly erythematous mucosa without active bleeding and with no stigmata of bleeding was found in the duodenal bulb. The second portion of the duodenum was normal. Impression: - Tortuous esophagus. - Chronic gastritis. Biopsied. - Non-bleeding gastric ulcers with no stigmata of bleeding. - Erythematous duodenopathy. - Normal second portion of the duodenum. Recommendation: - Admit the patient to [facility] for [facility] care. - Use Protonix (pantoprazole) 40 mg PO daily indefinitely. Phong Emerson MD Phong Emerson MD 04/14/2020 1:01:46 PM Electronically signed by Phong Emerson MD Number of Addenda: 0 Note Initiated On: 04/14/2020 12:40 PM Estimated Blood Loss: Estimated blood loss was minimal.
[2020-04-14] MEDS ORDERED: ONDANSETRON 4MG/2ML VIAL IV PRN (13:30)
[2020-04-14] MEDS ORDERED: LR 1,000 ML IV SCH (13:30)
[2020-04-14] MEDS: methylPREDNISolone 125MG 2ML VIAL IV SCH (13:51)
[2020-04-14 14:32] LABS: HEMATOCRIT 30.5 % (42.0-52.0); HEMOGLOBIN 10.1 g/dl (13.5-17.5)
[2020-04-14 21:33] LABS: HEMATOCRIT 33.4 % (42.0-52.0); HEMOGLOBIN 10.8 g/dl (13.5-17.5)
[2020-04-15] VITALS: BP 91/55
[2020-04-15 04:00] VITALS: BP 93/60
[2020-04-15 05:30] LABS: BASO % 0.4 % (0.0-1.0); EOS # 0.1 10^3/uL (0.0-0.5); HEMATOCRIT 31.3 % (42.0-52.0); HEMOGLOBIN 10.1 g/dl (13.5-17.5); LYMPH # 0.9 10^3/uL (1.5-5.0); MEAN CORPUSCULAR HEMOGLOBIN 30.9 pg (27.0-33.0); MEAN CORPUSCULAR HGB CONC 32.3 g/dl (32.0-36.5); MEAN CORPUSCULAR VOLUME 95.7 fl (80.0-96.0); MONO # 0.5 10^3/uL (0.0-0.8); MONO % 7.3 % (0.0-5.0); NEUTROPHILS # 5.5 10^3/uL (1.5-8.5); NEUTROPHILS % 76.8 % (36.0-66.0); RED BLOOD COUNT 3.27 10^6/uL (4.30-6.10); WHITE BLOOD COUNT 7.2 10^3/uL (4.0-10.0)
[2020-04-15 05:37] LABS: PLATELET COUNT, AUTOMATED 95 10^3/uL (150-450)
[2020-04-15 06:02] LABS: BLOOD UREA NITROGEN 19 MG/DL (7-18); CALCIUM LEVEL 8.4 MG/DL (8.5-10.1); CARBON DIOXIDE LEVEL 34 MEQ/L (21-32); CHLORIDE LEVEL 103 MEQ/L (98-107); CREATININE FOR GFR 0.59 MG/DL (0.70-1.30); GLOMERULAR FILTRATION RATE > 60.0 (>56); GLUCOSE, FASTING 112 MG/DL (70-100); MAGNESIUM LEVEL 1.8 MG/DL (1.8-2.4); POTASSIUM SERUM 3.7 MEQ/L (3.5-5.1); SODIUM LEVEL 141 MEQ/L (136-145)
[2020-04-15] MEDS: TIOTROPIUM INHALER/CAPSULE (SPIRIVA) INH SCH (07:08)
[2020-04-15] MEDS: ADVAIR HFA 230/21MCG INHALER INH SCH ×2 (07:08→20:06)
[2020-04-15 08:00] VITALS: BP 80/60
--- NOTE | 2020-04-15 08:06 | IPNPDOC ---
Text Note Date of Service The patient was seen on 04/14/20. NOTE Subjective: Patient seen and examined at bedside. No acute overnight events reported. Patient has no new medical complaints this morning. Anxious to proceed with EGD and to advance diet. Objective: General: NAD, lying comfortably in bed HEENT: NC/AT, EOMI, PERRL, nasal cannula in place Lungs: CTA B/L, diminished breath sounds Heart: +S1S2, RRR Abd: soft, NT, +BS Ext: chronic venous stasis changes lower extremities A/P: 59 yo male for melena, symptomatic anemia with SOB, orthopnea, chest pain; PMHx of COPD/chronic hypoxic respiratory failure/2L nasal cannula/chronic steroid dependence, pulmonary nodules, DLP, severe pulmonary HTN. #Symptomatic anemia - likely 2/2 UGIB - last colonoscopy 2016 Dr. Padilla - Had reported a history of dark stools and shortness of breath that has been progressive - on admission Patients SBP is lower than baseline; Baseline SBP of 90s - Hg of 8.4; baseline of 13-14 - BUN / Cr; ratio suggesting upper GI bleeding - Protonix IV - s/p 3 PRBC, serial H/H - on schedule for EGD today - follow as per surgery - appreciate assistance - Patient will remain NPO; will c/w IV fluid hydration - c/w Telemetry monitoring #Thrombocytopenia - Will continue to follow H&H - Plan for EGD (See above) #Lactic acid - resolved - likely 2/2 hypovolemia - Will provide 3 units PRBC transfusion - c/w IV fluid hydration #Chronic COPD with Chronic Hypoxic Respiratory Failure - Patient uses oxygen via nasal cannula at 2L while at home - Physical without any wheezing - Patient is on chronic prednisone at 10 mg PO daily; currently receiving so lumedrol - c/w inhaled therapy as ordered - Follows with Dr. Cary as an outpatient #Severe pulmonary HTN - Patient is on Furosemide 40 daily; will hold for now - Will continue to monitor for signs of fluid overload; may require IV Furosemide during transfusions #Pulmonary nodules - Follows with Dr. Cary as an outpatient #Gastrointestinal prophylaxis - Will start Protonix #DVT prophylaxis - TEDs/Sequentials VS,Fishbone, I+O VS, Fishbone, I+O Laboratory Tests 04/13/20 16:01 04/14/20 01:59 04/14/20 05:06 Vital Signs Date Time Temp Pulse Resp B/P (MAP) Pulse Ox O2 Delivery O2 Flow Rate FiO2 04/14/20 08:00 98.0 93 17 92/59 (70) 97 Nasal Cannula 2.0 04/13/20 08:54 97 I&O- Last 24 Hours up to 6 AM0 04/14/20 06:00 Intake Total 4245 ml Output Total 1275 ml Balance 2970 ml JOSE WHITE MD Apr 14, 2020 10:10
--- NOTE | 2020-04-15 08:10 | IPNPDOC ---
Text Note Date of Service The patient was seen on 04/15/20. NOTE Subjective: Patient seen and examined at bedside. No acute overnight events reported. Patient has no new medical complaints this morning. He underwent EGD yesterday with no acute findings. Objective: General: NAD, lying comfortably in bed HEENT: NC/AT, EOMI, PERRL, nasal cannula in place Lungs: CTA B/L, diminished breath sounds Heart: +S1S2, RRR Abd: soft, NT, +BS Ext: chronic venous stasis changes lower extremities A/P: 59 yo male for melena, symptomatic anemia with SOB, orthopnea, chest pain; PMHx of COPD/chronic hypoxic respiratory failure/2L nasal cannula/chronic steroid dependence, pulmonary nodules, DLP, severe pulmonary HTN. #Symptomatic anemia - EGD yesterday 04/14/20 - tortuous esophagus, chronic gastritis, non-bleeding gastric ulcers with no stigmata of bleeding, erythematous duodenopathy - received 1 PRBC after EGD - 4 units total this admission - follow as per surgery - assistance appreciated - last colonoscopy 2016 Dr. Padilla - Had reported a history of dark stools and shortness of breath that has been progressive - on admission Patients SBP is lower than baseline; Baseline SBP of 90s - BUN / Cr; ratio suggesting upper GI bleeding - Protonix IV - transitioned to PO #Thrombocytopenia - Will continue to follow H&H - Plan for EGD (See above) #Lactic acid - resolved - likely 2/2 hypovolemia #Chronic COPD with Chronic Hypoxic Respiratory Failure - Patient uses oxygen via nasal cannula at 2L while at home - Physical without any wheezing - Patient is on chronic prednisone at 10 mg PO daily; currently receiving solumedrol - c/w inhaled therapy as ordered - Follows with Dr. Cary as an outpatient #Severe pulmonary HTN - Patient is on Furosemide 40 daily; will hold for now - Will continue to monitor for signs of fluid overload; may require IV Furosemide during transfusions #Pulmonary nodules - Follows with Dr. Cary as an outpatient #Gastrointestinal prophylaxis - Protonix #DVT prophylaxis - TEDs/Sequentials VS,Fishbone, I+O VS, Fishbone, I+O Laboratory Tests 04/14/20 14:11 04/14/20 21:22 04/15/20 04:58 Vital Signs Date Time Temp Pulse Resp B/P (MAP) Pulse Ox O2 Delivery O2 Flow Rate FiO2 10/31/20 04:00 97.7 99 18 93/60 (71) 97 Nasal Cannula 2.0 04/13/20 08:54 97 I&O- Last 24 Hours up to 6 AM 04/15/20 06:00 Intake Total 2333 ml Output Total 800 ml Balance 1533 ml JOSE WHITE MD Apr 15, 2020 08:10
[2020-04-15] MEDS: PANTOPRAZOLE 40MG VIAL (C9113 PER 1) IV SCH ×2 (10:12→21:05)
[2020-04-15] MEDS: methylPREDNISolone 125MG 2ML VIAL IV SCH (10:13)
[2020-04-15 12:00] VITALS: BP 90/62
[2020-04-15 16:00] VITALS: BP 93/63
[2020-04-15 19:06] VITALS: BP 103/73
[2020-04-16] VITALS (7 sets, daily range): BP systolic 90–110; BP diastolic 60–73
[2020-04-16 05:14] LABS: BASO % 0.4 % (0.0-1.0); EOS # 0.1 10^3/uL (0.0-0.5); EOS % 1.3 % (0.0-3.0); HEMATOCRIT 31.5 % (42.0-52.0); HEMOGLOBIN 9.9 g/dl (13.5-17.5); LYMPH # 1.2 10^3/uL (1.5-5.0); MEAN CORPUSCULAR HGB CONC 31.4 g/dl (32.0-36.5); MEAN CORPUSCULAR VOLUME 95.5 fl (80.0-96.0); MONO # 0.6 10^3/uL (0.0-0.8); MONO % 9.2 % (0.0-5.0); NEUTROPHILS # 4.7 10^3/uL (1.5-8.5); NEUTROPHILS % 69.6 % (36.0-66.0); PLATELET COUNT, AUTOMATED 116 10^3/uL (150-450); WHITE BLOOD COUNT 6.8 10^3/uL (4.0-10.0)
[2020-04-16 05:38] LABS: BLOOD UREA NITROGEN 14 MG/DL (7-18); CALCIUM LEVEL 8.2 MG/DL (8.5-10.1); CARBON DIOXIDE LEVEL 35 MEQ/L (21-32); CHLORIDE LEVEL 103 MEQ/L (98-107); CREATININE FOR GFR 0.48 MG/DL (0.70-1.30); GLOMERULAR FILTRATION RATE > 60.0 (>56); GLUCOSE, FASTING 86 MG/DL (70-100); MAGNESIUM LEVEL 1.6 MG/DL (1.8-2.4); POTASSIUM SERUM 3.8 MEQ/L (3.5-5.1); SODIUM LEVEL 141 MEQ/L (136-145)
[2020-04-16] MEDS: MAG SULF 1GM/100ML (MAG RUN) 1 GM in IV 1 EA IV SCH ×2 (06:51→07:48)
[2020-04-16] MEDS: TIOTROPIUM INHALER/CAPSULE (SPIRIVA) INH SCH (06:58)
[2020-04-16] MEDS: ADVAIR HFA 230/21MCG INHALER INH SCH ×2 (06:58→20:15)
[2020-04-16] MEDS: PANTOPRAZOLE 40MG TAB (PROTONIX) PO SCH (07:48)
[2020-04-16] MEDS: DOCUSATE SODIUM 100 MG CAP PO SCH ×2 (09:08→20:35)
[2020-04-16] MEDS: MIRALAX *UNIT DOSE* 17GM PACKET PO PRN ×2 (11:04→15:02)
[2020-04-16] MEDS: methylPREDNISolone 125MG 2ML VIAL IV SCH (11:04)
--- NOTE | 2020-04-16 17:39 | IPNPDOC ---
Subjective Date Seen The patient was seen on 04/16/20. Subjective Chief Complaint/HPI Mr. Ralph is a 59 year old male with COPD chronically on 2L and pulmonary nodules here with symptomatic anemia. This morning, denies any fever/chills, dyspnea, chest pain, nausea, abdominal pain, or dysuria. No BM for the past 4 days. Ambulated with physical therapy today. Objective Physical Examination General Exam: Positive: Alert, Cooperative Eye Exam: Positive: EOMI; Negative: Sclera icteric ENT Exam: Positive: Atraumatic Neck Exam: Positive: Supple Chest Exam: Positive: Wheezing (mild) Heart Exam: Positive: Tachycardic, Regular Rhythm Abdomen Exam: Positive: Normal bowel sounds, Soft; Negative: Tenderness Extremity Exam: Negative: Cyanosis Neuro Exam: Positive: Cranial Nerves 3-12 NL Psych Exam: Positive: Mental status NL, Mood NL Assessment /Plan Assessment Mr. Ralph is a 59 year old male here with symptomatic anemia. EGD on 04/14/2020 demonstrated chronic gastritis and non-bleeding gastric ulcers. Will be on Protonix 40mg qD indefinitely. Otherwise, last colonoscopy was [address] Padilla. Patient tells me that they did not find anything. No bowel movements for the past 4 days. Started Colace and miralax today. If no BM by martha renee, will add on Senna. Will try to obtain fecal occult. If positive, he may benefit from outpatient colonoscopy. Plan/VTE VTE Prophylaxis Ordered?: Yes Plan 1. Symptomatic anemia -4 units of pRBC during this admission -EGD demonstrated tortuous esophagus, chronic gastritis, and non-bleeding gastric ulcer. -Last colonoscopy was with Dr. Padilla in 2016. -Pending fecal occult -Monitoring H&H 2. Chronic gastritis -Will need life long Protonix 40mg qD 3. Chronic hypoxic respiratory failure and COPD -Chronically on 2-3L of NC at home -Chronically on prednisone -Continue with inhalers 4. Severe pulmonary HTN -Lasix 40mg qD -On hold due to hypotension 5. Pulmonary nodules -Follow up with Dr. Cary outpatient 6. DVT ppx -SCD and TEDs VS, I&O, 24H, Fishbone Vital Signs/I&O Vital Signs Date Time Temp Pulse Resp B/P (MAP) Pulse Ox O2 Delivery O2 Flow Rate FiO2 04/16/20 16:00 97.9 111 16 101/73 (82) 96 Nasal Cannula 2.0 04/13/20 08:54 97 I&O- Last 24 Hours up to 6 AM 04/16/20 06:00 Intake Total 2032 ml Output Total 1155 ml Balance 877 ml Laboratory Data 24H LABS Laboratory Tests 2 04/16/20 04:54: Immature Granulocyte % (Auto) 1.5, Neutrophils (%) (Auto) 69.6H, Lymphocytes (%) (Auto) 18.0L, Monocytes (%) (Auto) 9.2H, Eosinophils (%) (Auto) 1.3, Basophils (%) (Auto) 0.4, Neutrophils # (Auto) 4.7, Lymphocytes # (Auto) 1.2L, Monocytes # (Auto) 0.6, Eosinophils # (Auto) 0.1, Basophils # (Auto) 0.0, Nucleated Red Blood Cells % (auto) 0.0, Anion Gap 3L, Glomerular Filtration Rate > 60.0, Calcium Level 8.2L, Magnesium Level 1.6L CBC/BMP Laboratory Tests 04/16/20 04:54 Microbiology Microbiology 04/13/20 Blood Culture - Preliminary, Resulted No Growth after 72 hours. All specime... 04/13/20 Blood Culture - Preliminary, Resulted No Growth after 72 hours. All specime... ZAKI BOWSER DO Apr 16, 2020 17:39
[2020-04-17] VITALS: BP 84/60
[2020-04-17 04:00] VITALS: BP_SYST 131; BP_SYST 88; BP_DIAS 65; BP_DIAS 76
[2020-04-17 04:46] LABS: BASO % 0.5 % (0.0-1.0); EOS # 0.1 10^3/uL (0.0-0.5); EOS % 1.8 % (0.0-3.0); HEMATOCRIT 32.9 % (42.0-52.0); HEMOGLOBIN 10.6 g/dl (13.5-17.5); LYMPH % 14.1 % (24.0-44.0); MEAN CORPUSCULAR HEMOGLOBIN 30.7 pg (27.0-33.0); MEAN CORPUSCULAR HGB CONC 32.2 g/dl (32.0-36.5); MEAN CORPUSCULAR VOLUME 95.4 fl (80.0-96.0); MONO # 0.7 10^3/uL (0.0-0.8); MONO % 9.9 % (0.0-5.0); NEUTROPHILS # 5.3 10^3/uL (1.5-8.5); NEUTROPHILS % 72.5 % (36.0-66.0); PLATELET COUNT, AUTOMATED 141 10^3/uL (150-450); RED BLOOD COUNT 3.45 10^6/uL (4.30-6.10); WHITE BLOOD COUNT 7.4 10^3/uL (4.0-10.0)
[2020-04-17 05:15] LABS: BLOOD UREA NITROGEN 15 MG/DL (7-18); CALCIUM LEVEL 8.3 MG/DL (8.5-10.1); CARBON DIOXIDE LEVEL 33 MEQ/L (21-32); CHLORIDE LEVEL 100 MEQ/L (98-107); CREATININE FOR GFR 0.55 MG/DL (0.70-1.30); GLOMERULAR FILTRATION RATE > 60.0 (>56); GLUCOSE, FASTING 83 MG/DL (70-100); MAGNESIUM LEVEL 1.8 MG/DL (1.8-2.4); POTASSIUM SERUM 4.7 MEQ/L (3.5-5.1); SODIUM LEVEL 136 MEQ/L (136-145)
[2020-04-17] MEDS ORDERED: SENNA 8.6 MG TAB (SENOKOT) PO SCH (07:45)
[2020-04-17] MEDS ORDERED: FUROSEMIDE 40 MG TAB PO SCH (07:45)
[2020-04-17] MEDS: ADVAIR HFA 230/21MCG INHALER INH SCH (07:54)
[2020-04-17] MEDS: TIOTROPIUM INHALER/CAPSULE (SPIRIVA) INH SCH (07:54)
[2020-04-17 08:00] VITALS: BP 89/64
[2020-04-17] MEDS: PANTOPRAZOLE 40MG TAB (PROTONIX) PO SCH (08:02)
[2020-04-17] MEDS: DOCUSATE SODIUM 100 MG CAP PO SCH (08:02)
[2020-04-17] MEDS ORDERED: predniSONE 10 MG TAB PO SCH (09:00)
[2020-04-17] MEDS ORDERED: DOCU100C16 PO (09:49)
[2020-04-17] MEDS ORDERED: PEG1POW PO (09:49)
[2020-04-17] MEDS ORDERED: PANT40TA29 PO (09:49)
--- NOTE | 2020-04-17 21:42 | DS.PDOC ---
Discharge Summary General Date of Admission Apr 13, 2020 at 10:44 Date of Discharge 2019 Specialist/Consultants [facility] General surgery, Dr. Emerson Discharge Summary PROCEDURES PERFORMED DURING STAY: EGD on 04/14/2020 ADMITTING DIAGNOSES: 1. Symptomatic anemia, possible GI bleed secondary to upper GI source 2. Thrombocytopenia 3. COPD 4. Chronic hypoxic respiratory failure 5. Severe pulmonary HTN 6. Pulmonary nodules DISCHARGE DIAGNOSES: 1. Symptomatic anemia 2. Chronic gastritis 3. Thrombocytopenia 4. COPD 5. Chronic hypoxic respiratory failure 6. Severe pulmonary HTN 7. Pulmonary nodules COMPLICATIONS/CHIEF COMPLAINT: Gi Bleed. HISTORY OF PRESENT ILLNESS: Mr. Ralph is a 59-year-old male with COPD, chronic hypoxic respiratory failure on 2 L, pulmonary nodules, severe pulmonary hypertension, and dyslipidemia who came to the ED for feeling off with difficulty focusing. When he was in the ED, he did not have any specific complaints. Patient reports having dyspnea for most of his life. Dyspnea has been worsening over the last month. He cannot lie flat on his back due to shortness of breath. Denies any changes to his baseline cough. Denies abdominal pain, nausea, vomiting, constipation, or diarrhea. His last bowel movement was the day prior to admission. It was soft and block without any bright red blood. Patient had an EGD and colonoscopy with Dr. Padilla in 2017 On admission, his hemoglobin was found to be 8.4. His baseline hemoglobin is usually between 13-14. BUN/creatinine ratio suggestive of upper GI bleeding. He was transfused with 3 units of packed red blood cells and H&H monitoring. Diuretics were held due to concern for GI bleed. HOSPITAL COURSE: During his admission, general surgery was consulted for EGD. Dr. Emerson performed the procedure on 04/14/2020. Demonstrated gastritis and aphthous ulceration in the gastric fundus and the gastric antrum. These were biopsied for H. pylori testing. There is also 2 nonbleeding superficial gastric ulcers with no stigmata of bleeding were found in the pylorus. The largest lesion was 5 mm in dimension. Patient will need to be on lifelong Protonix. His hemoglobin has remained stable around 10. Today he feels well, denies any fever or chills, lightheadedness or dizziness, chest pain, dyspnea, abdominal pain, or dysuria. He felt ready for home and was subsequently discharged. DISCHARGE MEDICATIONS: Please see below. ALLERGIES: Please see below. PHYSICAL EXAMINATION ON DISCHARGE: VITAL SIGNS: Please see below. GENERAL: Comfortable, in no apparent distress. HEENT: Head normocephalic/atraumatic, EOMI, sclera clear. NECK: Supple, no JVD. RESPIRATORY: Lungs clear to auscultation bilaterally. CARDIOVASCULAR: Tachycardic but regular ABDOMEN: Soft, nontender, no guarding or rebound tenderness. Normal bowel sounds. MUSCLE SKELETAL: Bilateral pitting edema NEUROLOGICAL: CN 312 grossly intact, no focal deficits noted. PSYCHOLOGICAL: Normal mood and affect LABORATORY DATA: Please see below. IMAGING: Chest x-ray Cardiomegaly and evidence of advanced COPD and emphysema. Fibrotic changes right upper lobe region. No new infiltrate. CT head Mild vascular calcification in generalized volume loss. No acute intracranial abnormality PROGNOSIS: Stable ACTIVITY: As tolerated. DIET: 2 g sodium DISCHARGE PLAN: Home DISPOSITION: Home, Self-Care. DISCHARGE INSTRUCTIONS: 1. Follow-up with her PCP within 5 days 2. Will need to be on PPIs lifelong. ITEMS TO FOLLOWUP ON ON OUTPATIENT: 1. Biopsy results from EGD for H. pylori DISCHARGE CONDITION: Stable. Total time spent on discharge planning, discharge summary, medication reconciliation: 45 minutes Vital Signs/I&Os Vital Signs Date Time Temp Pulse Resp B/P (MAP) Pulse Ox O2 Delivery O2 Flow Rate FiO2 04/17/20 08:00 2.0 04/17/20 08:00 97.6 116 18 89/64 (72) 94 Nasal Cannula 04/13/20 08:54 97 I&O- Last 24 Hours up to 6 AM 04/17/20 06:00 Intake Total 2220 ml Output Total 825 ml Balance 1395 ml Laboratory Data Labs 24H Laboratory Tests 2 04/17/20 04:37: Immature Granulocyte % (Auto) 1.2, Neutrophils (%) (Auto) 72.5H, Lymphocytes (%) (Auto) 14.1L, Monocytes (%) (Auto) 9.9H, Eosinophils (%) (Auto) 1.8, Basophils (%) (Auto) 0.5, Neutrophils # (Auto) 5.3, Lymphocytes # (Auto) 1.0L, Monocytes # (Auto) 0.7, Eosinophils # (Auto) 0.1, Basophils # (Auto) 0.0, Nucleated Red Blood Cells % (auto) 0.0, Anion Gap 3L, Glomerular Filtration Rate > 60.0, Calcium Level 8.3L, Magnesium Level 1.8 CBC/BMP Laboratory Tests 04/17/20 04:37 Microbiology Microbiology 04/13/20 Blood Culture - Preliminary, Resulted No Growth after 72 hours. All specime... 04/13/20 Blood Culture - Preliminary, Resulted No Growth after 72 hours. All specime... Discharge Medications Scheduled Docusate Sodium (Docusate Sodium) 100 Mg Capsule, 100 MG PO BID Fluticasone/Vilanterol (Breo Ellipta 200-25 Mcg INH) 1 Inh Inh, 1 PUFF INH DAILY, (Reported) Furosemide (Furosemide) 40 Mg Tablet, 40 MG PO DAILY, (Reported) Pantoprazole Sodium (Pantoprazole Sodium) 40 Mg Tablet.dr, 40 MG PO DAILY Prednisone (Prednisone) 10 Mg Tablet, 10 MG PO DAILY, (Reported) Tiotropium [place] (Spiriva) 18 Mcg Cap.w.dev, 1 INHALATION INH DAILY, (Reported) Scheduled PRN Levalbuterol Hydrochloride (Xopenex Hfa) 15 Gm Hfa.aer.ad, 2 PUFF INH Q4H PRN for SHORTNESS OF BREATH, (Reported) Polyethylene Glycol 3350 (Polyethylene Glycol 3350) 17 Gm Powd.pack, 1 PKT PO DAILYPRN PRN for CONSTIPATION Allergies Coded Allergies: No Known Allergies (Unverified , 09/09/16) ZAKI BOWSER DO Apr 17, 2020 17:24
== END 2020-04-17 14:41 | disposition home or self-care (01) | DRG 253 ==
LOC: M ED 08:13 → M ED INP 10:44 → ENRESERV 11:04 → M PCU 12:01
PROVIDERS: ADMIT Internal Medicine; ATTEND Internal Medicine
PROC: 0DB68ZX Excision of Stomach, Via Natural or Artificial Opening Endoscopic, Diagnostic (ICD-10-PCS; principal; 2020-04-13)
PROC: 30233N1 Transfusion of Nonautologous Red Blood Cells into Peripheral Vein, Percutaneous Approach (ICD-10-PCS; 2020-04-13)
DX: K92.2 Gastrointestinal hemorrhage, unspecified (principal); J96.11 Chronic respiratory failure with hypoxia; E87.2 Acidosis; I27.20 Pulmonary hypertension, unspecified; D69.6 Thrombocytopenia, unspecified; J44.9 Chronic obstructive pulmonary disease, unspecified; D50.0 Iron deficiency anemia secondary to blood loss (chronic); R91.8 Other nonspecific abnormal finding of lung field; E78.5 Hyperlipidemia, unspecified; Z79.899 Other long term (current) drug therapy

== ENCOUNTER → 2020-05-02 | Outpatient (REF) | payer BC ==
[~2020-05-02] MED LIST changes: -ADVAIR HFA 230/21MCG INHALER INH SCH; +AMOX500T PO; +CLAR500T97 PO; +DOCU100C16 PO; +LEVAINH INH; +PANT40TA29 PO; +PEG1POW PO
[2020-05-02 13:59] LABS: BASO # 0.1 10^3/uL (0.0-0.2); BASO % 0.8 % (0.0-1.0); EOS % 0.3 % (0.0-3.0); HEMATOCRIT 38.8 % (42.0-52.0); HEMOGLOBIN 13.2 g/dl (13.5-17.5); LYMPH # 0.6 10^3/uL (1.5-5.0); LYMPH % 8.9 % (24.0-44.0); MEAN CORPUSCULAR HEMOGLOBIN 30.6 pg (27.0-33.0); MONO # 0.4 10^3/uL (0.0-0.8); MONO % 6.3 % (0.0-5.0); NEUTROPHILS % 79.1 % (36.0-66.0); PLATELET COUNT, AUTOMATED 277 10^3/uL (150-450); RED BLOOD COUNT 4.31 10^6/uL (4.30-6.10); WHITE BLOOD COUNT 6.4 10^3/uL (4.0-10.0)
[2020-05-02 14:03] LABS: ALBUMIN 3.4 GM/DL (3.2-5.2); ALT/SGPT 38 U/L (12-78); BLOOD UREA NITROGEN 17 MG/DL (7-18); CALCIUM LEVEL 9.1 MG/DL (8.5-10.1); CARBON DIOXIDE LEVEL 34 MEQ/L (21-32); CHLORIDE LEVEL 89 MEQ/L (98-107); CREATININE FOR GFR 0.86 MG/DL (0.70-1.30); GLOMERULAR FILTRATION RATE > 60.0 (>56); GLUCOSE, FASTING 118 MG/DL (70-100); SODIUM LEVEL 130 MEQ/L (136-145); TOTAL PROTEIN 6.4 GM/DL (6.4-8.2)
== END ==
LOC: M SFHCPLAZ 10:45
PROVIDERS: ATTEND Physician Assistant Medical
DX: K92.2 Gastrointestinal hemorrhage, unspecified (principal)

== ENCOUNTER → 2020-05-19 | Outpatient (REF) | payer BC ==
[2020-05-19 16:51] LABS: HEMATOCRIT 40.4 % (42.0-52.0); HEMOGLOBIN 13.2 g/dl (13.5-17.5); MEAN CORPUSCULAR HEMOGLOBIN 29.5 pg (27.0-33.0); MEAN CORPUSCULAR HGB CONC 32.7 g/dl (32.0-36.5); MEAN CORPUSCULAR VOLUME 90.2 fl (80.0-96.0); PLATELET COUNT, AUTOMATED 190 10^3/uL (150-450); RED BLOOD COUNT 4.48 10^6/uL (4.30-6.10); WHITE BLOOD COUNT 6.2 10^3/uL (4.0-10.0)
[2020-05-19 16:52] LABS: PERCENT SATURATION 55.5 % (19.7-50.0)
== END ==
LOC: M SFHCPLAZ 11:44
PROVIDERS: ATTEND Family Medicine
DX: D50.8 Other iron deficiency anemias (principal)

== ENCOUNTER → 2020-08-03 | Outpatient (REF) | payer BC ==
[2020-08-03 18:24] LABS: BLOOD UREA NITROGEN 18 MG/DL (7-18); CALCIUM LEVEL 9.8 MG/DL (8.5-10.1); CARBON DIOXIDE LEVEL 31 MEQ/L (21-32); CHLORIDE LEVEL 89 MEQ/L (98-107); CREATININE FOR GFR 0.61 MG/DL (0.70-1.30); GLOMERULAR FILTRATION RATE > 60.0 (>56); GLUCOSE, FASTING 102 MG/DL (70-100); POTASSIUM SERUM 4.7 MEQ/L (3.5-5.1); SODIUM LEVEL 131 MEQ/L (136-145)
== END ==
LOC: M PLALAB 16:49
PROVIDERS: ATTEND Internal Medicine
DX: I50.9 Heart failure, unspecified (principal)

== ENCOUNTER → 2020-08-16 | Outpatient (CLI) | payer BC ==
[~2020-08-16] MED LIST changes: -PEG1POW PO; +POLY17PO18 PO
[2020-08-16 17:37] LABS: HEMATOCRIT 43.1 % (42.0-52.0); HEMOGLOBIN 13.9 g/dl (13.5-17.5); MEAN CORPUSCULAR HGB CONC 32.3 g/dl (32.0-36.5); MEAN CORPUSCULAR VOLUME 93.1 fl (80.0-96.0); PLATELET COUNT, AUTOMATED 334 10^3/uL (150-450); RED BLOOD COUNT 4.63 10^6/uL (4.30-6.10); WHITE BLOOD COUNT 10.2 10^3/uL (4.0-10.0)
[2020-08-16 19:20] LABS: BLOOD UREA NITROGEN 15 MG/DL (7-18); CALCIUM LEVEL 10.5 MG/DL (8.5-10.1); CARBON DIOXIDE LEVEL 41 MEQ/L (21-32); CHLORIDE LEVEL 89 MEQ/L (98-107); CREATININE FOR GFR 0.72 MG/DL (0.70-1.30); GLOMERULAR FILTRATION RATE > 60.0 (>56); GLUCOSE, FASTING 112 MG/DL (70-100); NT-PRO BNP 3581 PG/ML (<125); POTASSIUM SERUM 6.7 MEQ/L (3.5-5.1); SODIUM LEVEL 132 MEQ/L (136-145)
== END ==
LOC: M PLALAB 15:44
PROVIDERS: ATTEND Internal Medicine
DX: I50.9 Heart failure, unspecified (principal)

== ENCOUNTER → 2020-08-18 | Outpatient (CLI) | payer BC ==
[2020-08-18 17:36] LABS: BLOOD UREA NITROGEN 19 MG/DL (7-18); CALCIUM LEVEL 10.1 MG/DL (8.5-10.1); CARBON DIOXIDE LEVEL 41 MEQ/L (21-32); CHLORIDE LEVEL 84 MEQ/L (98-107); CREATININE FOR GFR 0.73 MG/DL (0.70-1.30); GLOMERULAR FILTRATION RATE > 60.0 (>56); GLUCOSE, FASTING 102 MG/DL (70-100); POTASSIUM SERUM 4.8 MEQ/L (3.5-5.1); SODIUM LEVEL 130 MEQ/L (136-145)
== END ==
LOC: M PLALAB 15:32
PROVIDERS: ATTEND Internal Medicine
DX: I50.9 Heart failure, unspecified (principal)

== ENCOUNTER → 2020-08-20 | Outpatient (CLI) | payer BC | LOC: M LABSMTC 09:12 | PROVIDERS: ATTEND Internal Medicine | DX: Z20.822 Contact with and (suspected) exposure to COVID-19 (principal); J44.9 Chronic obstructive pulmonary disease, unspecified ==

== ENCOUNTER → 2020-10-03 | Outpatient (REF) | payer BC ==
[2020-10-03 16:34] LABS: BLOOD UREA NITROGEN 16 MG/DL (7-18); CARBON DIOXIDE LEVEL 37 MEQ/L (21-32); CHLORIDE LEVEL 86 MEQ/L (98-107); CREATININE FOR GFR 0.62 MG/DL (0.70-1.30); GLOMERULAR FILTRATION RATE > 60.0 (>49); GLUCOSE, FASTING 89 MG/DL (70-100); POTASSIUM SERUM 4.6 MEQ/L (3.5-5.1); SODIUM LEVEL 130 MEQ/L (136-145)
[2020-10-03 16:41] LABS: PTH INTACT 152.6 PG/ML (18.5-88.0)
== END ==
LOC: M SFHCPLAZ 13:26
PROVIDERS: ATTEND Family Medicine
DX: E83.52 Hypercalcemia (principal); Z12.5 Encounter for screening for malignant neoplasm of prostate
CPT/HCPCS: 36415; 80048; 83970; G0103

== ENCOUNTER → 2020-10-27 | Outpatient (CLI) | payer BC ==
[2020-10-27 17:33] LABS: BLOOD UREA NITROGEN 13 MG/DL (7-18); CALCIUM LEVEL 9.9 MG/DL (8.8-10.2); CARBON DIOXIDE LEVEL 36 MEQ/L (21-32); CHLORIDE LEVEL 86 MEQ/L (98-107); CREATININE FOR GFR 0.56 MG/DL (0.70-1.30); GLOMERULAR FILTRATION RATE > 60.0 (>49); GLUCOSE, FASTING 86 MG/DL (70-100); POTASSIUM SERUM 4.1 MEQ/L (3.5-5.1); SODIUM LEVEL 131 MEQ/L (136-145)
== END ==
LOC: M PLALAB 15:29
PROVIDERS: ATTEND Internal Medicine
DX: I50.9 Heart failure, unspecified (principal)

== ENCOUNTER → 2020-12-28 | Outpatient (CLI) | payer BC ==
[2020-12-28 16:40] LABS: HEMATOCRIT 42.7 % (42.0-52.0); HEMOGLOBIN 13.7 g/dl (13.5-17.5); MEAN CORPUSCULAR HEMOGLOBIN 29.4 pg (27.0-33.0); MEAN CORPUSCULAR HGB CONC 32.1 g/dl (32.0-36.5); MEAN CORPUSCULAR VOLUME 91.6 fl (80.0-96.0); PLATELET COUNT, AUTOMATED 245 10^3/uL (150-450); RED BLOOD COUNT 4.66 10^6/uL (4.30-6.10); WHITE BLOOD COUNT 8.7 10^3/uL (4.0-10.0)
[2020-12-28 17:13] LABS: BLOOD UREA NITROGEN 9 MG/DL (7-18); CALCIUM LEVEL 9.7 MG/DL (8.8-10.2); CARBON DIOXIDE LEVEL 38 MEQ/L (21-32); CHLORIDE LEVEL 90 MEQ/L (98-107); CREATININE FOR GFR 0.51 MG/DL (0.70-1.30); GLOMERULAR FILTRATION RATE > 60.0 (>49); GLUCOSE, FASTING 77 MG/DL (70-100); NT-PRO BNP 286 PG/ML (<125); POTASSIUM SERUM 5.2 MEQ/L (3.5-5.1); SODIUM LEVEL 134 MEQ/L (136-145)
== END ==
LOC: M PLALAB 14:21
PROVIDERS: ATTEND Internal Medicine
DX: I50.9 Heart failure, unspecified (principal)

== ENCOUNTER → 2021-01-02 | Outpatient (CLI) | payer BC ==
[2021-01-02 19:27] LABS: ALBUMIN 3.9 GM/DL (3.2-5.2); ALT/SGPT 122 U/L (12-78); BILIRUBIN,TOTAL 1.2 MG/DL (0.2-1.0); BLOOD UREA NITROGEN 9 MG/DL (7-18); CALCIUM LEVEL 9.6 MG/DL (8.8-10.2); CARBON DIOXIDE LEVEL 41 MEQ/L (21-32); CHLORIDE LEVEL 90 MEQ/L (98-107); GLOMERULAR FILTRATION RATE > 60.0 (>49); GLUCOSE, FASTING 94 MG/DL (70-100); POTASSIUM SERUM 4.5 MEQ/L (3.5-5.1); SODIUM LEVEL 136 MEQ/L (136-145); THYROID STIMULATING HORMONE 0.315 uIU/ML (0.358-3.740); TOTAL PROTEIN 7.5 GM/DL (6.4-8.2)
== END ==
LOC: M PLALAB 14:59
PROVIDERS: ATTEND Family Medicine
DX: R63.4 Abnormal weight loss (principal)

== ENCOUNTER 2021-01-30 05:20 | Emergency (ER) | payer BC ==
[~2021-01-30] VITALS: Ht 170.2 cm; Wt 50.9 kg
[~2021-01-30 05:20] MED LIST changes: -MIDO10TA; -TORS20TA2; -TYVA0.6S3
[2021-01-30] MEDS ORDERED: methylPREDNISolone 125MG 2ML VIAL IV ONE (06:20)
[2021-01-30] MEDS: COMBIVENT RESPIMAT 100-20MCG INHALER 4GM INH SCH ×3 (06:36→08:24)
[2021-01-30 06:39] LABS: BASO # 0.1 10^3/uL (0.0-0.2); BASO % 0.7 % (0.0-1.0); EOS # 0.1 10^3/uL (0.0-0.5); EOS % 1.6 % (0.0-3.0); HEMOGLOBIN 12.9 g/dl (13.5-17.5); LYMPH # 0.6 10^3/uL (1.5-5.0); LYMPH % 7.3 % (24.0-44.0); MEAN CORPUSCULAR HGB CONC 31.5 g/dl (32.0-36.5); MEAN CORPUSCULAR VOLUME 92.1 fl (80.0-96.0); MONO # 0.5 10^3/uL (0.0-0.8); MONO % 6.3 % (2.0-8.0); NEUTROPHILS # 6.8 10^3/uL (1.5-8.5); NEUTROPHILS % 81.9 % (36.0-66.0); PLATELET COUNT, AUTOMATED 213 10^3/uL (150-450); RED BLOOD COUNT 4.45 10^6/uL (4.30-6.10); WHITE BLOOD COUNT 8.3 10^3/uL (4.0-10.0)
[2021-01-30 07:26] LABS: ALBUMIN 3.9 GM/DL (3.2-5.2); ALT/SGPT 75 U/L (12-78); BILIRUBIN,DIRECT 0.3 MG/DL (0.0-0.2); BILIRUBIN,TOTAL 0.9 MG/DL (0.2-1.0); BLOOD UREA NITROGEN 9 MG/DL (7-18); CALCIUM LEVEL 8.9 MG/DL (8.8-10.2); CARBON DIOXIDE LEVEL 42 MEQ/L (21-32); CHLORIDE LEVEL 91 MEQ/L (98-107); CK-MB VALUE MASS 6.2 NG/ML (<3.6); CPK CREATINE PHOSPHOKINASE 88 U/L (39-308); CREATININE FOR GFR 0.54 MG/DL (0.70-1.30); GLOMERULAR FILTRATION RATE > 60.0 (>49); GLUCOSE, FASTING 102 MG/DL (70-100); MB/CK RELATIVE INDEX 7.05 (< OR =4); NT-PRO BNP 982 PG/ML (<125); POTASSIUM SERUM 5.2 MEQ/L (3.5-5.1); SODIUM LEVEL 133 MEQ/L (136-145); THYROID STIMULATING HORMONE 0.874 uIU/ML (0.358-3.740); TOTAL PROTEIN 6.9 GM/DL (6.4-8.2); TROPONIN I < 0.02 NG/ML (< 0.10)
--- NOTE | 2021-01-30 07:37 | REPVR ---
PROCEDURE INFORMATION: Exam: XR Chest Exam date and time: 01/30/2021 6:28 AM Age: 60 years old Clinical indication: Cough and dyspnea; Additional info: Dyspnea/cough TECHNIQUE: Imaging protocol: XR of the chest. Views: 1 view. COMPARISON: MD PORTABLE CHEST X-RAY 04/13/2020 8:55 AM FINDINGS: Lungs: COPD, interstitial disease, and right upper lobe parenchymal stranding. Pleural spaces: No significant pleural effusion. Heart/Mediastinum: Asymmetric left pulmonary artery enlargement. No cardiomegaly. Bones/joints: Unremarkable. IMPRESSION: 1. COPD, interstitial disease, and right upper lobe parenchymal stranding. 2. Asymmetric left pulmonary artery enlargement. Electronically signed by: John Pastrana On 01/30/2021 07:37:42 AM
--- NOTE | 2021-01-30 07:54 | ECGEPIP ---
[facility] - ED Test Date: 2021-01-30 Pat Name: ELANA LEON Department: Room: - Gender: Male [employer] Up Folding: flor : 1960 Requested By: BERRY Ye Order Number: [id number] Reading MD: Berry Baldwin Measurements Intervals Wesley Rate: 95 P: 82 IN: 222 QRS: 101 QRSD: 94 T: 62 QT: 364 QTc: 457 Interpretive Statements Sinus rhythm with 1st degree AV block Low QRS complex voltage in the limb leads Rightward axis Pulmonary disease pattern Nonspecific ST-T wave abnormalities Similar to tracing done 08-23-19 Electronically Signed on 01-30-2021 7:53:51 EDT by Berry Baldwin
[2021-01-30] MEDS ORDERED: MIDO10TA (08:53)
[2021-01-30] MEDS ORDERED: TORS20TA2 (08:53)
[2021-01-30] MEDS ORDERED: TYVA0.6S3 (08:53)
[2021-01-30] MEDS ORDERED: FUROSEMIDE 100MG/10ML VIAL (J1940) IV ONE (09:15)
--- NOTE | 2021-01-30 11:39 | ED PDOC ---
Post-Departure Follow-Up dr fernandez faxed formal report of cxr for fu in regards to asymmetric pa. Gayle Roberts MD Jan 30, 2021 11:39
[2021-01-30 12:15] VITALS: BP 92/62
== END 2021-01-30 14:05 | disposition home or self-care (01) ==
LOC: M ED 05:20
DX: I50.813 Acute on chronic right heart failure (principal); I27.20 Pulmonary hypertension, unspecified; R94.31 Abnormal electrocardiogram [ECG] [EKG]; J44.9 Chronic obstructive pulmonary disease, unspecified; Z87.891 Personal history of nicotine dependence; Z79.899 Other long term (current) drug therapy
CPT/HCPCS: 71045; 80048; 80076; 82550; 82553; 83605; 83880; 84443; 84484; 85025; 87040; 87077; 87186; 87798; 93005; 93041; 94640; 94760; 96374; 99285; J1940; J2930

== ENCOUNTER → 2021-01-30 | Outpatient (CLI) | payer BC ==
[~2021-01-30] MED LIST changes: +MIDO10TA; +TORS20TA2; +TYVA0.6S3
[2021-01-30 18:48] LABS: ALBUMIN 4.1 GM/DL (3.2-5.2); ALT/SGPT 81 U/L (12-78); BILIRUBIN,DIRECT 0.4 MG/DL (0.0-0.2); BILIRUBIN,TOTAL 1.4 MG/DL (0.2-1.0); HEPATITIS A ANTIBODY IGM NEGATIVE (NEGATIVE); HEPATITIS B CORE ANTIBODY IGM NEGATIVE (NEGATIVE); HEPATITIS B SURFACE ANTIGEN NEGATIVE (NEGATIVE); HEPATITIS C VIRUS ABY INDEX < 0.0 INDEX (<0.8); THYROID STIMULATING HORMONE 0.309 uIU/ML (0.358-3.740); TOTAL PROTEIN 7.5 GM/DL (6.4-8.2)
== END ==
LOC: M PLALAB 14:50
PROVIDERS: ATTEND Family Medicine
DX: R79.89 Other specified abnormal findings of blood chemistry (principal); R74.01 Elevation of levels of liver transaminase levels

== ENCOUNTER → 2021-04-04 | Outpatient (CLI) | payer BC ==
[~2021-04-04] MED LIST changes: +MIDO10TA; +TORS20TA2; +TYVA0.6S3
[2021-04-04 18:12] LABS: ALBUMIN 3.3 GM/DL (3.2-5.2); ALT/SGPT 42 U/L (12-78); BLOOD UREA NITROGEN 16 MG/DL (7-18); CARBON DIOXIDE LEVEL 40 MEQ/L (21-32); CHLORIDE LEVEL 95 MEQ/L (98-107); GLOMERULAR FILTRATION RATE > 60.0 (>49); GLUCOSE, FASTING 91 MG/DL (70-100); SODIUM LEVEL 140 MEQ/L (136-145); THYROID STIMULATING HORMONE 0.735 uIU/ML (0.358-3.740); TOTAL PROTEIN 6.7 GM/DL (6.4-8.2)
== END ==
LOC: M PLALAB 14:29
PROVIDERS: ATTEND Family Medicine
DX: R79.89 Other specified abnormal findings of blood chemistry (principal); R74.01 Elevation of levels of liver transaminase levels

== ENCOUNTER → 2021-11-19 | Outpatient (CLI) | payer BC ==
[~2021-11-19] MED LIST changes: -LEVO500T3 PO; +LEVO500T4 PO
[2021-11-19 14:26] LABS: HEMATOCRIT 42.5 % (42.0-52.0); HEMOGLOBIN 13.1 g/dl (13.5-17.5); MEAN CORPUSCULAR HEMOGLOBIN 29.6 pg (27.0-33.0); MEAN CORPUSCULAR HGB CONC 30.8 g/dl (32.0-36.5); MEAN CORPUSCULAR VOLUME 95.9 fl (80.0-96.0); PLATELET COUNT, AUTOMATED 214 10^3/uL (150-450); RED BLOOD COUNT 4.43 10^6/uL (4.30-6.10); WHITE BLOOD COUNT 8.9 10^3/uL (4.0-10.0)
[2021-11-19 15:05] LABS: ALBUMIN 3.8 GM/DL (3.2-5.2); ALT/SGPT 36 U/L (12-78); BILIRUBIN,TOTAL 1.4 MG/DL (0.2-1.0); BLOOD UREA NITROGEN 14 MG/DL (7-18); CALCIUM LEVEL 10.1 MG/DL (8.8-10.2); CARBON DIOXIDE LEVEL 44 MEQ/L (21-32); CHLORIDE LEVEL 97 MEQ/L (98-107); CHOLESTEROL LEVEL 274 MG/DL (<200); CREATININE FOR GFR 0.54 MG/DL (0.70-1.30); FERRITIN 208 NG/ML (26-388); GLOMERULAR FILTRATION RATE > 60.0 (>49); GLUCOSE, FASTING 99 MG/DL (70-100); HDL CHOLESTEROL 133 MG/DL (>40); IRON (FE) 91 UG/DL (65-175); LDL CHOLESTEROL 126 MG/DL (<100); NON-HDL-C 141 MG/DL; PERCENT SATURATION 26.8 % (19.7-50.0); POTASSIUM SERUM 4.2 MEQ/L (3.5-5.1); SODIUM LEVEL 143 MEQ/L (136-145); TOTAL IRON BINDING CAPACITY 340 UG/DL (250-450); TOTAL PROTEIN 6.8 GM/DL (6.4-8.2); TRIGLYCERIDES LEVEL 77 MG/DL (<150)
[2021-11-19 15:34] LABS: HEMOGLOBIN A1c 5.2 %
== END ==
LOC: M PLALAB 09:58
PROVIDERS: ATTEND Family Medicine
DX: D50.8 Other iron deficiency anemias (principal); Z13.1 Encounter for screening for diabetes mellitus; Z12.5 Encounter for screening for malignant neoplasm of prostate; E78.2 Mixed hyperlipidemia
CPT/HCPCS: 36415; 80053; 80061; 82728; 83036; 83550; 85027; G0103

== ENCOUNTER 2022-04-22 18:29 | Inpatient (IN) | payer BC ==
[~2022-04-22] VITALS: Ht 170.2 cm; Wt 65.6 kg
[~2022-04-22 18:29] MED LIST changes: +LEVO1TAB39 PO; -LEVO500T4 PO
[2022-04-22] MEDS ORDERED: IPRATROPIUM 0.5MG/ALBUTEROL 2.5MG INH SOL UD 3ML (DUONEB) NEB ONE (19:15)
[2022-04-22 19:47] LABS: BASO % 0.4 % (0.0-1.0); EOS % 0.1 % (0.0-3.0); HEMATOCRIT 43.1 % (42.0-52.0); HEMOGLOBIN 12.8 g/dl (13.5-17.5); LYMPH # 0.4 10^3/uL (1.5-5.0); LYMPH % 5.2 % (24.0-44.0); MEAN CORPUSCULAR HEMOGLOBIN 28.6 pg (27.0-33.0); MEAN CORPUSCULAR HGB CONC 29.7 g/dl (32.0-36.5); MEAN CORPUSCULAR VOLUME 96.4 fl (80.0-96.0); MONO # 0.6 10^3/uL (0.0-0.8); NEUTROPHILS # 6.9 10^3/uL (1.5-8.5); NEUTROPHILS % 85.7 % (36.0-66.0); PLATELET COUNT, AUTOMATED 130 10^3/uL (150-450); RED BLOOD COUNT 4.47 10^6/uL (4.30-6.10)
[2022-04-22] MEDS ORDERED: NS 1,000 ML IV ONE (20:15)
[2022-04-22 21:01] LABS: ALBUMIN 3.2 GM/DL (3.2-5.2); ALT/SGPT 29 U/L (12-78); BILIRUBIN,TOTAL 1.9 MG/DL (0.2-1.0); BLOOD UREA NITROGEN 28 MG/DL (7-18); CALCIUM LEVEL 8.8 MG/DL (8.8-10.2); CARBON DIOXIDE LEVEL 54 MEQ/L (21-32); CHLORIDE LEVEL 78 MEQ/L (98-107); CREATININE FOR GFR 0.84 MG/DL (0.70-1.30); GLOMERULAR FILTRATION RATE > 60.0 (>49); GLUCOSE, FASTING 129 MG/DL (70-100); MAGNESIUM LEVEL 1.6 MG/DL (1.8-2.4); NT-PRO BNP 7468 PG/ML (<125); SODIUM LEVEL 133 MEQ/L (136-145); TOTAL PROTEIN 6.5 GM/DL (6.4-8.2)
[2022-04-22] MEDS ORDERED: FLEET OIL RETENTION ENEMA PR PRN (21:20)
[2022-04-23] VITALS (14 sets, daily range): BP systolic 87–103; BP diastolic 60–79
[2022-04-23] MEDS ORDERED: SPIR1CAP INH (00:08)
[2022-04-23] MEDS ORDERED: ALBU8.5H INH (00:08)
[2022-04-23] MEDS ORDERED: MIRA1POW3 PO (00:08)
[2022-04-23] MEDS ORDERED: PANT-23 PO (00:08)
[2022-04-23] MEDS ORDERED: DULC5TAB PO (00:08)
[2022-04-23] MEDS ORDERED: TORS20TA2 PO (00:08)
[2022-04-23] MEDS ORDERED: ALEV220T22 PO (00:08)
[2022-04-23] MEDS ORDERED: HOME MED LIST COMPLETE! XX SCH (00:10)
[2022-04-23] MEDS ORDERED: ACETAMINOPHEN TAB 650MG DOSE (2X325MG) PO PRN (02:50)
[2022-04-23] MEDS ORDERED: FLEET ENEMA PR ONE (02:50)
[2022-04-23] MEDS ORDERED: NS 500 ML IV ONE (02:50)
[2022-04-23] MEDS ORDERED: ALBUTEROL SULFATE 2.5 MG/0.5 ML INH NEB SOLN NEB PRN (02:50)
[2022-04-23] MEDS ORDERED: NS 1,000 ML IV SCH (03:30)
[2022-04-23] MEDS: methylPREDNISolone 40MG 1ML VIAL IV SCH ×3 (04:00→20:51)
[2022-04-23 04:18] LABS: ABG BASE EXCESS 23.8 (-2.0-2.0); ABG HCO3 54.6 MEQ/L (22.0-26.0); ABG O2 SATURATION 93.7 % (95.0-99.0); ABG PARTIAL PRESSURE O2 66.8 mmHg (75.0-100.0); ABG STANDARD HCO3 48.7 MEQ/L (22.0-26.0); ABG TOTAL CO2 57.6 MEQ/L (23.0-31.0); ABG pH (ARTERIAL) 7.372 UNITS (7.350-7.450)
[2022-04-23 04:26] LABS: ABG PARTIAL PRESSURE CO2 96.2 mmHg (35.0-45.0)
[2022-04-23] MEDS ORDERED: MAG SULF 1GM/100ML (MAG RUN) 1 GM in IV 1 EA IV ONE (04:50)
[2022-04-23 05:21] LABS: BLOOD UREA NITROGEN 25 MG/DL (7-18); CARBON DIOXIDE LEVEL 55 MEQ/L (21-32); CHLORIDE LEVEL 82 MEQ/L (98-107); CREATININE FOR GFR 0.63 MG/DL (0.70-1.30); GLOMERULAR FILTRATION RATE > 60.0 (>49); GLUCOSE, FASTING 121 MG/DL (70-100); POTASSIUM SERUM 3.7 MEQ/L (3.5-5.1); SODIUM LEVEL 138 MEQ/L (136-145)
[2022-04-23] MEDS: HEPARIN SOD (PORCINE) 5000UNITS/ML 1ML VIAL/SYRINGE SC SCH ×3 (05:49→20:52)
[2022-04-23] MEDS: IPRATROPIUM 0.5MG/ALBUTEROL 2.5MG INH SOL UD 3ML (DUONEB) NEB SCH ×3 (07:19→20:34)
[2022-04-23 07:48] LABS: ABG BASE EXCESS 19.2 (-2.0-2.0); ABG HCO3 49.1 MEQ/L (22.0-26.0); ABG PARTIAL PRESSURE O2 157.6 mmHg (75.0-100.0); ABG STANDARD HCO3 43.5 MEQ/L (22.0-26.0); ABG TOTAL CO2 51.8 MEQ/L (23.0-31.0); ABG pH (ARTERIAL) 7.362 UNITS (7.350-7.450)
[2022-04-23 07:51] LABS: ABG PARTIAL PRESSURE CO2 88.5 mmHg (35.0-45.0)
[2022-04-23] MEDS ORDERED: POTASSIUM CHLORIDE 10% LIQ 20 MEQ/15 ML UDC PO ONE (07:55)
[2022-04-23] MEDS ORDERED: AZITHROMYCIN INJ 500 MG, VIAL MATE ADAPTER 1 EACH in NS 250 ML IV SCH (08:00)
[2022-04-23] MEDS: DOCUSATE SODIUM 100MG CAPSULE PO SCH ×2 (08:11→20:51)
[2022-04-23] MEDS: PANTOPRAZOLE 40MG TAB (PROTONIX) PO SCH (08:11)
[2022-04-23] MEDS: MIRALAX *UNIT DOSE* 17GM PACKET PO SCH (08:11)
[2022-04-23] MEDS: THIAMINE 100 MG TAB PO SCH (08:12)
[2022-04-23] MEDS: FOLIC ACID 1MG TAB PO SCH (08:12)
[2022-04-23] MEDS: MULTIVITAMINS/MINERALS THERAP 1 TAB PO SCH (08:14)
[2022-04-23] MEDS: BUDESONIDE 0.5 MG/2 ML INHALATION SUSPENSION INH SCH ×2 (08:27→20:34)
[2022-04-23] MEDS ORDERED: DEXTROSE 50% 50 ML SYRINGE IV PRN (13:10)
[2022-04-23] MEDS ORDERED: GLUCOSE 4GM CHEW TABLET PO PRN (13:10)
[2022-04-23] MEDS ORDERED: GLUCAGON INJ 1MG VIAL SC PRN (13:10)
[2022-04-23] MEDS ORDERED: FUROSEMIDE 20 MG TAB PO ONE (14:00)
[2022-04-23] MEDS: INSULIN LISPRO (NovoLOG) PER UNIT SC SCH ×2 (17:30→20:51)
[2022-04-24] VITALS (10 sets, daily range): BP systolic 82–146; BP diastolic 57–105
[2022-04-24] MEDS: IPRATROPIUM 0.5MG/ALBUTEROL 2.5MG INH SOL UD 3ML (DUONEB) NEB SCH ×4 (02:26→19:46)
[2022-04-24] MEDS: methylPREDNISolone 40MG 1ML VIAL IV SCH ×3 (04:00→20:08)
[2022-04-24] MEDS: HEPARIN SOD (PORCINE) 5000UNITS/ML 1ML VIAL/SYRINGE SC SCH ×3 (05:06→20:08)
[2022-04-24 05:12] LABS: BASO % 0.3 % (0.0-1.0); HEMATOCRIT 35.3 % (42.0-52.0); LYMPH # 0.3 10^3/uL (1.5-5.0); LYMPH % 4.7 % (24.0-44.0); MEAN CORPUSCULAR HEMOGLOBIN 29.1 pg (27.0-33.0); MEAN CORPUSCULAR HGB CONC 30.6 g/dl (32.0-36.5); MEAN CORPUSCULAR VOLUME 95.1 fl (80.0-96.0); MONO # 0.3 10^3/uL (0.0-0.8); MONO % 4.4 % (2.0-8.0); PLATELET COUNT, AUTOMATED 104 10^3/uL (150-450); RED BLOOD COUNT 3.71 10^6/uL (4.30-6.10); WHITE BLOOD COUNT 6.8 10^3/uL (4.0-10.0)
[2022-04-24 05:13] LABS: HEMOGLOBIN 10.8 g/dl (13.5-17.5)
[2022-04-24 05:25] LABS: BLOOD UREA NITROGEN 19 MG/DL (7-18); CALCIUM LEVEL 8.6 MG/DL (8.8-10.2); CARBON DIOXIDE LEVEL 42 MEQ/L (21-32); CHLORIDE LEVEL 86 MEQ/L (98-107); CREATININE FOR GFR 0.52 MG/DL (0.70-1.30); GLOMERULAR FILTRATION RATE > 60.0 (>49); GLUCOSE, FASTING 143 MG/DL (70-100); POTASSIUM SERUM 3.9 MEQ/L (3.5-5.1); SODIUM LEVEL 132 MEQ/L (136-145)
[2022-04-24 05:54] LABS: ABG BASE EXCESS 27.5 (-2.0-2.0); ABG HCO3 55.5 MEQ/L (22.0-26.0); ABG PARTIAL PRESSURE O2 139.3 mmHg (75.0-100.0); ABG TOTAL CO2 57.8 MEQ/L (23.0-31.0)
[2022-04-24 06:00] LABS: ABG PARTIAL PRESSURE CO2 74.5 mmHg (35.0-45.0)
[2022-04-24] MEDS: INSULIN LISPRO (NovoLOG) PER UNIT SC SCH ×4 (07:30→20:09)
[2022-04-24] MEDS: BUDESONIDE 0.5 MG/2 ML INHALATION SUSPENSION INH SCH ×2 (07:53→19:46)
[2022-04-24] MEDS: DOCUSATE SODIUM 100MG CAPSULE PO SCH ×2 (09:40→20:08)
[2022-04-24] MEDS: FOLIC ACID 1MG TAB PO SCH (09:40)
[2022-04-24] MEDS: PANTOPRAZOLE 40MG TAB (PROTONIX) PO SCH (09:40)
[2022-04-24] MEDS: THIAMINE 100 MG TAB PO SCH (09:40)
[2022-04-24] MEDS: MULTIVITAMINS/MINERALS THERAP 1 TAB PO SCH (09:41)
[2022-04-24] MEDS: MIRALAX *UNIT DOSE* 17GM PACKET PO SCH (09:41)
[2022-04-24] MEDS: AZITHROMYCIN 250MG TABLET PO SCH (09:41)
[2022-04-25] VITALS (9 sets, daily range): BP systolic 87–106; BP diastolic 59–78
[2022-04-25] MEDS: IPRATROPIUM 0.5MG/ALBUTEROL 2.5MG INH SOL UD 3ML (DUONEB) NEB SCH ×4 (01:25→20:25)
[2022-04-25] MEDS: methylPREDNISolone 40MG 1ML VIAL IV SCH ×3 (05:01→21:02)
[2022-04-25] MEDS: HEPARIN SOD (PORCINE) 5000UNITS/ML 1ML VIAL/SYRINGE SC SCH ×3 (05:01→21:02)
[2022-04-25] MEDS: FOLIC ACID 1MG TAB PO SCH (07:59)
[2022-04-25] MEDS: THIAMINE 100 MG TAB PO SCH (07:59)
[2022-04-25] MEDS: MIDODRINE 5 MG TAB PO SCH ×3 (07:59→16:16)
[2022-04-25] MEDS: MULTIVITAMINS/MINERALS THERAP 1 TAB PO SCH (07:59)
[2022-04-25] MEDS: AZITHROMYCIN 250MG TABLET PO SCH (07:59)
[2022-04-25] MEDS: PANTOPRAZOLE 40MG TAB (PROTONIX) PO SCH (07:59)
[2022-04-25] MEDS: BUDESONIDE 0.5 MG/2 ML INHALATION SUSPENSION INH SCH ×2 (08:00→20:25)
[2022-04-25] MEDS: INSULIN LISPRO (NovoLOG) PER UNIT SC SCH ×4 (08:00→20:52)
[2022-04-25] MEDS: DOCUSATE SODIUM 100MG CAPSULE PO SCH ×2 (08:01→20:37)
[2022-04-25] MEDS: MIRALAX *UNIT DOSE* 17GM PACKET PO SCH (08:02)
[2022-04-25] MEDS ORDERED: FLUBLOK(EGG FREE)(QUAD)INFLUENZA VACC 0.5ML SYRINGE 18YRS & OLDER IM.IMMUN ONE (09:00)
[2022-04-25 10:02] LABS: HEMATOCRIT 41.1 % (42.0-52.0); HEMOGLOBIN 12.4 g/dl (13.5-17.5); MEAN CORPUSCULAR HEMOGLOBIN 28.6 pg (27.0-33.0); MEAN CORPUSCULAR HGB CONC 30.2 g/dl (32.0-36.5); MEAN CORPUSCULAR VOLUME 94.9 fl (80.0-96.0); PLATELET COUNT, AUTOMATED 146 10^3/uL (150-450); RED BLOOD COUNT 4.33 10^6/uL (4.30-6.10); WHITE BLOOD COUNT 10.6 10^3/uL (4.0-10.0)
[2022-04-25 11:14] LABS: BLOOD UREA NITROGEN 23 MG/DL (7-18); CALCIUM LEVEL 9.8 MG/DL (8.8-10.2); CARBON DIOXIDE LEVEL 47 MEQ/L (21-32); CHLORIDE LEVEL 85 MEQ/L (98-107); CREATININE FOR GFR 0.65 MG/DL (0.70-1.30); GLOMERULAR FILTRATION RATE > 60.0 (>49); GLUCOSE, FASTING 159 MG/DL (70-100); NT-PRO BNP 9726 PG/ML (<125); POTASSIUM SERUM 3.9 MEQ/L (3.5-5.1); SODIUM LEVEL 137 MEQ/L (136-145)
[2022-04-26] MEDS: IPRATROPIUM 0.5MG/ALBUTEROL 2.5MG INH SOL UD 3ML (DUONEB) NEB SCH ×2 (01:16→07:09)
[2022-04-26] MEDS: methylPREDNISolone 40MG 1ML VIAL IV SCH (05:08)
[2022-04-26] MEDS: HEPARIN SOD (PORCINE) 5000UNITS/ML 1ML VIAL/SYRINGE SC SCH ×3 (05:09→20:18)
[2022-04-26 06:00] VITALS: BP 110/72
[2022-04-26] MEDS: BUDESONIDE 0.5 MG/2 ML INHALATION SUSPENSION INH SCH ×2 (07:09→19:07)
[2022-04-26] MEDS: MIRALAX *UNIT DOSE* 17GM PACKET PO SCH (09:00)
[2022-04-26] MEDS: DOCUSATE SODIUM 100MG CAPSULE PO SCH ×2 (09:26→20:17)
[2022-04-26] MEDS: MIDODRINE 5 MG TAB PO SCH (09:26)
[2022-04-26] MEDS: AZITHROMYCIN 250MG TABLET PO SCH (09:26)
[2022-04-26] MEDS: PANTOPRAZOLE 40MG TAB (PROTONIX) PO SCH (09:26)
[2022-04-26] MEDS: MULTIVITAMINS/MINERALS THERAP 1 TAB PO SCH (09:26)
[2022-04-26] MEDS: FOLIC ACID 1MG TAB PO SCH (09:26)
[2022-04-26] MEDS: INSULIN LISPRO (NovoLOG) PER UNIT SC SCH ×4 (09:27→21:00)
[2022-04-26] MEDS ORDERED: methylPREDNISolone 125MG 2ML VIAL IV ONE (10:35)
[2022-04-26] MEDS ORDERED: FUROSEMIDE 100MG/10ML VIAL (J1940) IV ONE (10:35)
[2022-04-26 10:51] LABS: ABG BASE EXCESS 15.9 (-2.0-2.0); ABG HCO3 44.7 MEQ/L (22.0-26.0); ABG O2 SATURATION 93.8 % (95.0-99.0); ABG PARTIAL PRESSURE O2 67.7 mmHg (75.0-100.0); ABG STANDARD HCO3 39.8 MEQ/L (22.0-26.0); ABG TOTAL CO2 47.1 MEQ/L (23.0-31.0); ABG pH (ARTERIAL) 7.386 UNITS (7.350-7.450)
[2022-04-26 11:09] LABS: ABG PARTIAL PRESSURE CO2 76.3 mmHg (35.0-45.0)
[2022-04-26] MEDS ORDERED: ISOVUE-370 76% 100ML VIAL As Ordered ONE (11:19)
[2022-04-26] MEDS ORDERED: FUROSEMIDE 40 MG TAB PO ONE (11:30)
[2022-04-26 11:51] VITALS: BP 108/68
[2022-04-26] MEDS ORDERED: LEVALBUTEROL 1.25 MG/0.5 ML CONCENTRATE NEB INH PRN (12:00)
[2022-04-26] MEDS ORDERED: MIDODRINE 5 MG TAB PO ONE (12:00)
[2022-04-26 12:07] LABS: CK-MB VALUE MASS 2.3 NG/ML (<3.6); MB/CK RELATIVE INDEX 4.89 (< OR =4)
[2022-04-26] MEDS: LEVALBUTEROL 1.25 MG/0.5 ML CONCENTRATE NEB INH SCH ×4 (12:10→23:37)
[2022-04-26 16:00] VITALS: BP 102/56
[2022-04-26] MEDS: methylPREDNISolone 125MG 2ML VIAL IV SCH ×2 (17:20→23:37)
[2022-04-26 19:43] VITALS: BP 110/72
[2022-04-27] VITALS: BP 105/65
[2022-04-27] MEDS: LEVALBUTEROL 1.25 MG/0.5 ML CONCENTRATE NEB INH SCH ×6 (03:32→23:38)
[2022-04-27 04:00] VITALS: BP 100/60
[2022-04-27] MEDS: methylPREDNISolone 125MG 2ML VIAL IV SCH ×3 (06:12→17:12)
[2022-04-27] MEDS: HEPARIN SOD (PORCINE) 5000UNITS/ML 1ML VIAL/SYRINGE SC SCH ×2 (06:12→15:10)
[2022-04-27 06:30] LABS: HEMATOCRIT 38.7 % (42.0-52.0); HEMOGLOBIN 11.7 g/dl (13.5-17.5); MEAN CORPUSCULAR HGB CONC 30.2 g/dl (32.0-36.5); PLATELET COUNT, AUTOMATED 129 10^3/uL (150-450); RED BLOOD COUNT 4.03 10^6/uL (4.30-6.10)
[2022-04-27 07:04] LABS: BLOOD UREA NITROGEN 31 MG/DL (7-18); CALCIUM LEVEL 9.5 MG/DL (8.8-10.2); CARBON DIOXIDE LEVEL 51 MEQ/L (21-32); CHLORIDE LEVEL 86 MEQ/L (98-107); CREATININE FOR GFR 0.74 MG/DL (0.70-1.30); GLOMERULAR FILTRATION RATE > 60.0 (>49); GLUCOSE, FASTING 157 MG/DL (70-100); POTASSIUM SERUM 4.2 MEQ/L (3.5-5.1); SODIUM LEVEL 135 MEQ/L (136-145)
[2022-04-27] MEDS: BUDESONIDE 0.5 MG/2 ML INHALATION SUSPENSION INH SCH ×2 (07:23→19:08)
[2022-04-27 08:00] VITALS: BP 104/69
[2022-04-27] MEDS: MIRALAX *UNIT DOSE* 17GM PACKET PO SCH (08:09)
[2022-04-27] MEDS: FOLIC ACID 1MG TAB PO SCH (08:09)
[2022-04-27] MEDS: AZITHROMYCIN 250MG TABLET PO SCH (08:09)
[2022-04-27] MEDS: MULTIVITAMINS/MINERALS THERAP 1 TAB PO SCH (08:09)
[2022-04-27] MEDS: INSULIN LISPRO (NovoLOG) PER UNIT SC SCH ×2 (08:10→12:27)
[2022-04-27] MEDS: PANTOPRAZOLE 40MG TAB (PROTONIX) PO SCH (08:10)
[2022-04-27] MEDS: DOCUSATE SODIUM 100MG CAPSULE PO SCH (08:10)
[2022-04-27 12:00] VITALS: BP 100/74
[2022-04-27 13:09] LABS: ABG BASE EXCESS 10.6 (-2.0-2.0); ABG HCO3 40.5 MEQ/L (22.0-26.0); ABG O2 SATURATION 91.9 % (95.0-99.0); ABG PARTIAL PRESSURE CO2 84.4 mmHg (35.0-45.0); ABG STANDARD HCO3 34.2 MEQ/L (22.0-26.0); ABG TOTAL CO2 43.1 MEQ/L (23.0-31.0); ABG pH (ARTERIAL) 7.299 UNITS (7.350-7.450)
[2022-04-27 16:00] VITALS: BP 102/73
[2022-04-27] MEDS ORDERED: ONDANSETRON 4MG 2ML VIAL IV PRN (17:50)
[2022-04-27] MEDS ORDERED: SCOPOLAMINE 1MG TRANSDERMAL PATCH TOP PRN (17:50)
[2022-04-27] MEDS ORDERED: FLEET ENEMA PR PRN (17:50)
[2022-04-27] MEDS: IPRATROPIUM 0.02% SOLN 0.5MG 2.5ML NEB INH SCH ×2 (19:08→23:38)
[2022-04-27] MEDS: MORPHINE 10MG/0.5ML ORAL CONCENTRATE SOLUTION U/D SL PRN (22:02)
[2022-04-28] MEDS: IPRATROPIUM 0.02% SOLN 0.5MG 2.5ML NEB INH SCH ×5 (03:05→20:00)
[2022-04-28] MEDS: LEVALBUTEROL 1.25 MG/0.5 ML CONCENTRATE NEB INH SCH ×5 (03:05→20:00)
[2022-04-28] MEDS: BUDESONIDE 0.5 MG/2 ML INHALATION SUSPENSION INH SCH ×2 (07:20→20:00)
[2022-04-28] MEDS: MORPHINE 10MG/0.5ML ORAL CONCENTRATE SOLUTION U/D SL PRN (08:01)
[2022-04-28] MEDS: LORazepam 2 MG/ML VIAL IV PRN ×2 (16:01→22:41)
[2022-04-29] MEDS: IPRATROPIUM 0.02% SOLN 0.5MG 2.5ML NEB INH SCH ×3 (03:51→08:00)
[2022-04-29] MEDS: LEVALBUTEROL 1.25 MG/0.5 ML CONCENTRATE NEB INH SCH ×3 (03:51→08:00)
[2022-04-29] MEDS: BUDESONIDE 0.5 MG/2 ML INHALATION SUSPENSION INH SCH (08:00)
== END 2022-04-29 09:10 | disposition expired | DRG 140 ==
LOC: M ED 18:29 → M ED INP 04-23 02:46 → M ICU 04-23 05:24 → M PCU 04-24 21:23 → M MSPAV 04-25 17:06 → M PCU 04-26 11:42 → M MSPAV 04-28 15:36
PROVIDERS: ADMIT Internal Medicine; ATTEND Internal Medicine Pulmonary Disease
DX: J44.1 Chronic obstructive pulmonary disease with (acute) exacerbation (principal); J96.21 Acute and chronic respiratory failure with hypoxia; R64 Cachexia; E43 Unspecified severe protein-calorie malnutrition; D69.6 Thrombocytopenia, unspecified; E87.20 Acidosis, unspecified; I11.0 Hypertensive heart disease with heart failure; I27.29 Other secondary pulmonary hypertension; I95.9 Hypotension, unspecified; J96.22 Acute and chronic respiratory failure with hypercapnia; Z99.81 Dependence on supplemental oxygen; I50.32 Chronic diastolic (congestive) heart failure; F10.19 Alcohol abuse with unspecified alcohol-induced disorder; I47.1 Supraventricular tachycardia; E83.42 Hypomagnesemia; Z66 Do not resuscitate; F17.210 Nicotine dependence, cigarettes, uncomplicated; Z79.52 Long term (current) use of systemic steroids; Z79.899 Other long term (current) drug therapy; R73.9 Hyperglycemia, unspecified; T38.0X5A Adverse effect of glucocorticoids and synthetic analogues, initial encounter; K59.09 Other constipation; Z68.20 Body mass index [BMI] 20.0-20.9, adult; E78.5 Hyperlipidemia, unspecified; J20.9 Acute bronchitis, unspecified; J44.0 Chronic obstructive pulmonary disease with (acute) lower respiratory infection